=== PATIENT | female | born 1950 | race Two or more races ===

== ENCOUNTER 2021-09-27 11:11 | Emergency (ER) | payer OTHER, SELFPAY ==
--- NOTE | ~2021-09-27 | CT_ITS ---
EXAMINATION: CT ABDOMEN AND PELVIS WITHOUT CONTRAST CLINICAL INFORMATION: Back pain. COMPARISON: Lumbosacral spine done earlier today. TECHNIQUE: Multidetector volumetric imaging was performed from the superior aspect of the liver through the pubic symphysis. Sagittal and coronal reformatted images were obtained on the technologist's workstation. This CT examination was performed using dose optimization techniques as appropriate, variously including the following: *Automated exposure control *Adjustment of mA and/or kV according to patient size (this includes techniques or standardized protocols for targeted exams where dose is matched to indication/reason for exam; i.e. extremities or head) *Use of iterative reconstruction technique DLP: 654 mGy-cm FINDINGS: LUNG BASES: Sub-5 mm Kim-fissural nodule is noted (2:4) at the right lung base, too small for accurate characterization. Evaluation is also technically limited due to motion related artifacts. LIVER, GALLBLADDER, AND BILIARY TREE: The liver is normal in size, shape, and attenuation. No focal hepatic lesion or biliary ductal dilatation is present. Solitary 1.1 cm radiopaque calculus is noted within the gallbladder without evidence of any wall thickening or pericholecystic fluid. Extrahepatic biliary ducts appear decompressed. PANCREAS: Unremarkable. SPLEEN: Unremarkable. Accessory splenic tissue is noted around the anterior inferior part of the splenic bed (156:4). ADRENAL GLANDS: Unremarkable. KIDNEYS AND URETERS: The right kidney is normal in size, shape, and attenuation. No hydronephrosis, hydroureter, or calculi seen. No perinephric stranding. The left kidney shows a prominent fluid density structures within the left renal sinus, may represent mild hydronephrosis versus parapelvic cyst. Further differentiation cannot be made based on the nonenhanced study. CT urogram would be definitive for further differentiation. BLADDER: Unremarkable. GASTROINTESTINAL TRACT: The small and large bowel are unremarkable. Nonvisualized appendix without any inflammatory changes around the cecum. ABDOMINAL WALL: No significant hernia is appreciated. LYMPH NODES: Normal. VASCULAR: Nonaneurysmal aorta. Atherosclerotic disease within the distal aorta and both common iliac arteries. PELVIC VISCERA: There is no pelvic mass present. No evidence of any free fluid and/or free air. OSSEOUS STRUCTURES: Mild to moderate diffuse osteopenia. Multilevel moderate degenerative spondylosis including significant facet degenerative arthritic changes are noted at the lumbar spine. No evidence of any compression fracture. Cortical irregularities and new bone formations are noted at the symphysis pubis, most consistent with osteitis pubis. However, low-grade infection as well as hyperparathyroidism may have similar appearance and cannot be further differentiated. CT/CT abdomen pelvis wo con IMPRESSION: 1. Technically limited study due to motion related artifacts at the visualized lung bases. Sub-5 mm Kim-fissural nodule is noted at right lung base, small for accurate characterization. 2. Solitary 1.1 cm radiopaque gallstone without any CT features of acute cholecystitis or biliary obstruction. 3. Prominent fluid density structure within the left renal sinus, may represent mild hydronephrosis versus parapelvic cyst. Further differentiation cannot be made based on this nonenhanced study. CT urogram would be definitive for further differentiation. 4. Nonvisualized appendix without any inflammatory changes around the cecum. Nonaneurysmal aorta. 5. Mild to moderate diffuse osteopenia and multilevel moderate degenerative spondylosis including significant facet joint arthritic changes are noted at the lumbar spine. 6. Cortical irregularities and new bone formations are noted at the symphysis pubis, most consistent with osteitis pubis. However, low-grade infection as well as hyperparathyroidism may have similar appearance and cannot be further differentiated.
--- NOTE | ~2021-09-27 | XR_ITS ---
EXAMINATION: XR LUMBOSACRAL SPINE CLINICAL INFORMATION: Lower back pain. COMPARISON: None TECHNIQUE: Three views of the lumbosacral spine. FINDINGS: Mild diffuse osteopenia. There are 5 nonrib-bearing lumbar vertebrae present. Decreased disc height, endplate osteophyte formation, consistent with [id number] multilevel degenerative spondylosis related changes are noted with most pronounced changes seen at L3-L4. The posterior appendages are intact. The paraspinal soft tissues are unremarkable for extensive fecal residual throughout the entire visualized part of the large bowel. XR/XR lumbar spine 2-3V IMPRESSION: 1. Mild diffuse osteopenia. 2. Multilevel degenerative spondylosis with most pronounced changes seen at L3-L4.
[2021-09-27 12:31] VITALS: BP 146/63; PULSE 61; RESP 18; TEMP 36.4; O2SAT 98; BMI 37.1
--- NOTE | 2021-09-27 13:47 | MHC.CM.ED ---
Received notification from registration that patient is requesting to complete a HCP. HCP completed, signed and witnessed. Original given to patient. Copy placed in chart.
--- NOTE | 2021-09-27 13:56 | ED.BACK ---
HPI - Back Pain/Injury General Chief Complaint: Back Pain/Injury Stated Complaint: back pain Time Seen by Provider: 09/27/21 13:56 History of Present Illness HPI Narrative: Patient complains of back pain with movement since yesterday, there is no numbness weakness or tingling there is no radiation of pain there is no changes to bowel or bladder no fever, no precipitating injury Related Data Previous Rx's Medication Instructions Recorded acetaminophen 300 mg-codeine 30 mg 1 tab PO Q6H PRN #14 tab 09/27/21 tablet Allergies Allergy/AdvReac Type Severity Reaction Status Date / Time amoxicillin Allergy Hives Verified 09/27/21 12:42 Review of Systems Review of Systems: Positive for low back pain Negatives are no fever no chills no dizziness no weakness no headache no neck pain no chest pain no shortness of breath no abdominal pain no dysuria no changes to bowel or bladder no incontinence no loss of sensation no weakness Yes all other systems are reviewed and are negative PMFSH Past Medical History Source: nursing notes reviewed Medical History (Updated 09/27/21 @ 16:32 by LATOSHA Miranda) Back pain Fluid retention in legs Hypertension Osteoporosis Social History Social History Advance Directives: Yes Advance Directives on File: Yes Advance Directives Date on File: 09/27/21 Physical Exam Vital Signs: Vital Signs: Last Vital Signs Temp 97.5 F 09/27/21 12:31 Pulse 61 09/27/21 12:31 Resp 18 09/27/21 12:31 BP 146/63 H 09/27/21 12:31 Pulse Ox 98 09/27/21 12:31 Body Mass Index 37.1 General appearance no acute distress Head is normocephalic atraumatic Neck is supple Chest is clear Abdomen soft nontender The back and lower lumbar midline tenderness, skin was normal there was no CVA tenderness, pain easily reproduced with movement, no rash Extremities full range of motion x4 Neuro no focal motor or sensory deficits Course Course Course Narrative: CT scan was done to rule out compression fracture, check for mass or enlarged aorta No emergent findings on CT no fractures identified aorta was normal caliber no mass There was incidental finding of a cyst in the kidney and patient was made aware advised she may need further imaging or follow-up for this Patient was discharged with pain medicine and advised to follow with primary doctor for both further evaluation of the cyst and physical therapy for both osteoporosis and her back pain Discharge Plan Discharge Clinical Impression: Back pain Patient Disposition: Home, Self-Care Additional Instructions: CT scan showed some arthritis and a cyst in the kidney which may need further imaging so follow with your doctor Also follow with your doctor for possible physical therapy and further evaluation of her back pain Return to the ER any time any worse condition or any concerns Prescriptions: New acetaminophen-codeine 300-30 mg tablet 1 tab PO Q6H PRN (Reason: pain) Qty: 14 RF: 0 Interventions: ED Discharge Assessment Last Done: 09/27/21 16:36 Discharge Date/Time: 09/27/21 16:43
== END 2021-09-27 16:43 | disposition home or self-care (01) ==
PROVIDERS: Emergency Provider Emergency Medicine; PCP Physician Assistant
DX: M54.50 Low back pain, unspecified (principal); I10 Essential (primary) hypertension; R93.5 Abnormal findings on diagnostic imaging of other abdominal regions, including retroperitoneum; Q61.01 Congenital single renal cyst; M85.88 Other specified disorders of bone density and structure, other site
CPT/HCPCS: 72100; 74176; 99283; 99284

== ENCOUNTER 2022-09-25 16:36 | Emergency (ER) | payer OTHER, SELFPAY ==
--- NOTE | ~2022-09-25 | XR_ITS ---
EXAMINATION: XR CHEST CLINICAL INFORMATION: Cough COMPARISON: None TECHNIQUE: Frontal view of the chest was obtained. FINDINGS: Opacity in the medial right upper lobe likely corresponds to asymmetric osteophytosis of the right first costosternal junction. The lungs are otherwise clear. No focal consolidation or mass. Normal pulmonary vascularity. No pleural effusion or pneumothorax. Normal heart size. Calcified aortic arch. Tortuous aorta. Multilevel degenerative changes of the thoracic spine. XR/XR chest 1V IMPRESSION: 1.3 cm opacity in the medial right upper lobe likely corresponds to asymmetric osteophytosis of the right first costosternal junction. This could be reassessed with oblique views. No additional findings to suggest acute pulmonary disease.
[2022-09-25 18:04] VITALS: BP 186/70; PULSE 80; RESP 18; TEMP 36.8; O2SAT 98; BMI 36.5
--- NOTE | 2022-09-25 22:29 | ED.URI ---
HPI - URI/Sore Throat General Chief Complaint: Upper Respiratory Symptoms Stated Complaint: cough Time Seen by Provider: 09/25/22 22:20 Source: patient Mode of arrival: ambulatory Limitations: no limitations History of Present Illness HPI Narrative: Patient is a 71-year-old female with no known past medical history who presents to ED today for a cough that she has been experiencing for the last month. She states with a month ago she developed a cough and subjective fevers stating ?she thought she had the flu.? At that time she tested negative for COVID, however did not take a test for the flu. She stated that the fevers have subsided however she continues to experience a cough. She states the cough is productive with a white-colored? sputum. She reports taking NyQuil, Mucinex, and Tylenol without relief of symptoms. She denies any current fevers, chills, runny nose, sore throat, hemoptysis, chest pain, shortness of breath, abdominal pain, N/V/D, urinary symptoms, recent travel, and any known sick contacts. She states she is up-to-date on all her vaccines, including COVID and influenza. MD elicited complaint: cough Onset (ago): month(s) (1) Consistency: constant Severity: mild Description of mucous: other (white) Able to tolerate fluids by mouth: Yes Exacerbating factors: nothing Relieving factors: nothing Associated symptoms: fever Treatments prior to arrival: acetaminophen and cold medicine Related Data Previous Rx's Medication Instructions Recorded acetaminophen 300 mg-codeine 30 mg 1 tab PO Q6H PRN pain #14 tabs 09/27/21 tablet albuterol sulfate 90 mcg/actuation 1 inh inhalation QID PRN shortness 09/25/22 aerosol inhaler of breath or wheezing #8.5 grams doxycycline monohydrate 100 mg 100 mg PO BID 7 days #14 tabs 09/25/22 tablet prednisone 20 mg tablet 40 mg PO DAILY bronchospasm 5 days 09/25/22 #10 tabs Allergies Allergy/AdvReac Type Severity Reaction Status Date / Time amoxicillin Allergy Hives Verified 09/27/21 12:42 Review of Systems Review of Systems: Constitutional : No Fever, No Chills, No fatigue, No Malaise ENT/Mouth : No sore throat, No runny nose Eyes: No Discharge Cardiovascular : No Chest Pain, No SOB Respiratory : No Cough, No Sputum, No Wheezing, No Smoke Exposure, No Dyspnea Gastrointestinal : No Nausea, No Vomiting, No Diarrhea Genitourinary : No irregular bleeding, No Dysuria, No Urinary Frequency, No Hematuria, No Urinary Incontinence, No Urgency, No Flank Pain, Musculoskeletal : No Myalgia Skin : No rash Neuro : No Headache Yes all other systems are reviewed and are negative PMFSH Past Medical History Attestation statement: The following information was validated with the patient. Source: old records reviewed, obtained from family and nursing notes reviewed Medical History Back pain Fluid retention in legs Hypertension Osteoporosis Social History Social History Advance Directives: Yes Advance Directives on File: Yes Advance Directives Date on File: 09/27/21 Physical Exam Vital Signs: Vital Signs: Last Vital Signs Temp 98.3 F 09/25/22 18:04 Pulse 80 09/25/22 18:04 Resp 18 09/25/22 18:04 BP 186/70 H 09/25/22 18:04 Pulse Ox 98 09/25/22 18:04 O2 Del Method 09/25/22 18:04 BMI result Body Mass Index 36.5 vital signs have been reviewed Blood pressure 186/70. Heart rate normal. Respiration normal. Oxygen saturation normal. Appearance: Alert. Oriented X3. No acute distress. Head: Normal external exam. Normocephalic. Atraumatic. Eyes: PERRLA. EOMI. Conjunctiva and sclera normal. Eyelids normal. ENT: EAC normal. TM's Normal. Pharynx normal. Uvula midline. Moist mucous membranes. No trismus noted. No drooling noted. No muffled voice noted. No stridor noted. Patient tolerating secretions well. Neck: Normal inspection. Neck supple. FROM. CVS: Normal heart rate and rhythm. Heart sound normal. Pulses normal throughout. No murmurs/rales/gallops. Respiratory: No respiratory distress. Painless inspiration. Breath sounds normal. No wheezes/rales/rhonchi noted. Chest nontender. No accessory muscle usage noted or decreased air movement noted. Normal chest excursions noted. Abdomen: No visible injury noted. Back: Full range of motion noted. No rashes/lesion/induration/fluctuance or signs of infection noted. Skin: Skin warm and dry. Normal skin color. Normal skin turgor. No rashes/lesions/lacerations noted. Extremities: No lower extremity edema. Extremities exhibit normal range of motion. Neuro: Oriented X 3. No focal neuro deficits noted. Vascular: + radial pulses/+ 2 distal pedal pulses/+2 dorsalis pedis b/l. Normal cap refill. Course Course Course Narrative: Patient is a 71-year-old female with no known past medical history who presents to ED today for a cough that she has been experiencing for the last month. Patient currently afebrile, hypertensive at 186/70, all other vital signs stable. Physical exam otherwise unremarkable. CXR shows 1.3 cm opacity in the medial right upper lobe likely osteophytosis, no additional findings to suggest acute pulmonary disease. Will perform infectious workup with CBC, CMP, Mg, UA, COVID/flu/RSV swab and reassess pending labs. Patient did not endorse a history of hypertension. Will recheck blood pressure and reassess. Reevaluation(s) Reevaluation #1: - recheck blood pressure was 147/72 I recheck this myself. - labs obtained and all labs within normal limits. Patient negative for COVID/RSV/flu. - therefore at this time will DC home with antibiotics and symptomatic treatment instructions to follow-up with PCP for further evaluation treatment about opacity in her chest x-ray if it does not resolve after the antibiotics and to return if any new or worsening symptoms. Patient understands agrees with this plan. Time: 00:10 MDM - URI/Sore Throat Medical Records Attestation: I reviewed the patient's medical records. Lab Data Attestation: I reviewed the patient's lab results. Result diagrams: 09/25/22 23:01 09/25/22 23:01 Labs: Lab Results 09/25/22 09/25/22 09/25/22 Range/Units 22:28 23:01 23:01 WBC 9.0 (4.8-10.8) X10*3/uL RBC 4.82 (4.20-5.50) X10*6/uL Hgb 12.7 (12.0-16.0) g/dl Hct 41.0 (37.0-47.0) % MCV 85.1 (80.0-98.0) fL MCH 26.3 L (27.0-33.0) pg MCHC 31.0 (31.0-35.0) g/dl RDW 13.9 (11.0-16.0) % Plt Count 274 (160-400) X10*3/uL MPV 10.3 (9.4-12.3) fL Immature Gran % (Auto) 0.3 (0.0-0.4) % Neut % (Auto) 62.3 (45-73) % Lymph % (Auto) 25.7 (20-40) % Mccracken % (Auto) 7.6 (2-11) % Eos % (Auto) 3.0 (0-4) % Baso % (Auto) 1.1 (0-2) % Lymph # (Auto) 2.3 (1.2-4.9) X10*3/uL Mccracken # (Auto) 0.7 (0.1-1.2) X10*3/uL Eos # (Auto) 0.3 (0.0-0.4) X10*3/uL Baso # (Auto) 0.1 (0.0-0.2) X10*3/uL Abs Immat Gran (auto) 0.03 (0.00-0.03) X10*3/uL Absolute Neuts (auto) 5.6 (2.0-8.3) x10*3/uL Absolute Nucleated RBC 0.000 (0.0-0.012) X10*3/uL Nucleated RBC % (auto) 0.0 (0.0-0.2) /100WBC Sodium 142 (135-145) mmol/L Potassium 3.5 (3.3-5.1) mmol/L Chloride 106 (96-108) mmol/L Carbon Dioxide 24 (22-29) mmol/L Anion Gap 16 (12-20) BUN 14 (9-16) mg/dL Creatinine 0.75 (0.5-1.4) mg/dL Estim Creat Clear Calc 63.8 Estimated GFR > 60 Random Glucose 102 (60-115) mg/dL Calcium 9.6 (8.4-10.2) mg/dL Magnesium 2.0 (1.6-2.6) mg/dL Total Bilirubin 0.5 (0.0-1.0) mg/dL AST 18 (5-31) U/L ALT 15 (0-31) U/L Alkaline Phosphatase 116 (39-117) U/L Total Protein 7.9 (6.5-8.0) g/dL Albumin 4.5 (3.5-5.0) g/dL Influenza Type A (PCR) NEGATIVE (Negative) Influenza Type B (PCR) NEGATIVE (Negative) RSV RNA Qual (PCR) NEGATIVE (Negative) SARS-CoV-2 RNA (RT-PCR) NEGATIVE (Negative) Imaging Data Chest x-ray: Attestation: I personally reviewed and interpreted this imaging study as follows: Radiologist's impression: FINDINGS: Opacity in the medial right upper lobe likely corresponds to asymmetric osteophytosis of the right first costosternal junction. The lungs are otherwise clear. No focal consolidation or mass. Normal pulmonary vascularity. No pleural effusion or pneumothorax.? Normal heart size. Calcified aortic arch. Tortuous aorta. Multilevel degenerative changes of the thoracic spine. XR/XR chest 1V IMPRESSION: 1.3 cm opacity in the medial right upper lobe likely corresponds to asymmetric osteophytosis of the right first costosternal junction. This could be reassessed with oblique views. ? No additional findings to suggest acute pulmonary disease. Discharge Plan Discharge Clinical Impression: Bronchitis, Osteophytosis Patient Disposition: Home, Self-Care Instructions: Acute Bronchitis (ED) Prescriptions: New doxycycline monohydrate 100 mg tablet 100 mg PO BID 7 Days Qty: 14 0RF albuterol sulfate 90 mcg/actuation HFA aerosol inhaler 1 inh inhalation QID PRN (Reason: shortness of breath or wheezing) Qty: 8.5 0RF prednisone 20 mg tablet 40 mg PO DAILY 5 Days Qty: 10 0RF No Action acetaminophen-codeine 300-30 mg tablet 1 tab PO Q6H PRN (Reason: pain) Qty: 14 0RF Referrals: Destini Gutierrez PA-C [Primary Care Provider] - 2 days Discharge Date/Time: 09/25/22 23:56 Print Language: Hebrew
[2022-09-25 23:08] LABS: MANUAL DIFF FLAG NO
[2022-09-25 23:09] LABS: Basophils Absolute Auto 0.1 X10*3/uL (0.0-0.2); Basophils Percent Auto 1.1 % (0-2); Eosinophils Absolute Auto 0.3 X10*3/uL (0.0-0.4); Hemoglobin 12.7 g/dl (12.0-16.0); Imm Gran Abs Auto 0.03 X10*3/uL (0.00-0.03); Imm Gran Pct Auto 0.3 % (0.0-0.4); Lymphocytes Absolute Auto 2.3 X10*3/uL (1.2-4.9); Lymphocytes Percent Auto 25.7 % (20-40); Mean Corpuscular Hemoglobin 26.3 pg (27.0-33.0); Mean Corpuscular Volume 85.1 fL (80.0-98.0); Mean Platelet Volume 10.3 fL (9.4-12.3); Monocytes Absolute Auto 0.7 X10*3/uL (0.1-1.2); Monocytes Percent Auto 7.6 % (2-11); Neutrophils Absolute Auto 5.6 x10*3/uL (2.0-8.3); Neutrophils Percent Auto 62.3 % (45-73); Platelet Count 274 X10*3/uL (160-400); Red Blood Count 4.82 X10*6/uL (4.20-5.50); Red Cell Distribution Width 13.9 % (11.0-16.0)
[2022-09-25 23:11] LABS: Influenza A PCR NEGATIVE (Negative); Influenza B PCR NEGATIVE (Negative); Resp Syncy Virus RNA Qual PCR NEGATIVE (Negative); SARS COV2 PCR INHOUSE NEGATIVE (Negative)
[2022-09-25 23:24] LABS: Alanine Aminotransferase 15 U/L (0-31); Albumin Level 4.5 g/dL (3.5-5.0); Alkaline Phosphatase 116 U/L (39-117); Anion Gap 16 (12-20); Aspartate Amino Transferase 18 U/L (5-31); Bilirubin Total 0.5 mg/dL (0.0-1.0); Blood Urea Nitrogen 14 mg/dL (9-16); Calcium 9.6 mg/dL (8.4-10.2); Carbon Dioxide 24 mmol/L (22-29); Chloride 106 mmol/L (96-108); Creatinine Clr Calc Pharmacy 63.8; Estimated Glomerular Filt Rate > 60; Glucose Random 102 mg/dL (60-115); Potassium 3.5 mmol/L (3.3-5.1); Sodium 142 mmol/L (135-145); Total Protein 7.9 g/dL (6.5-8.0)
== END 2022-09-25 23:56 | disposition home or self-care (01) ==
PROVIDERS: Physician Assistant Medical; Emergency Provider Student in an Organized Health Care Education/Training Program; PCP Physician Assistant
DX: J40 Bronchitis, not specified as acute or chronic (principal); M25.70 Osteophyte, unspecified joint; Z20.822 Contact with and (suspected) exposure to COVID-19; I10 Essential (primary) hypertension
CPT/HCPCS: 0241U; 36415; 71045; 80053; 83735; 85025; 99282; 99283

== ENCOUNTER 2022-11-21 09:09 | Emergency (ER) | payer OTHER, SELFPAY ==
--- NOTE | ~2022-11-21 | XR_ITS ---
EXAMINATION: XR SHOULDER, RIGHT CLINICAL INFORMATION: Pain COMPARISON: Chest radiograph 09/25/2022 TECHNIQUE: Right shoulder is imaged in 3 views. FINDINGS: No fracture, dislocation, or destructive process. There is scattered calcification in the superior rotator cuff consistent with calcific tendinosis. The acromioclavicular alignment is normal. There are degenerative changes acromioclavicular joint. Right lung apex shows no pneumothorax or pleural reaction. No airspace consolidation or right effusion. XR/XR shoulder RT min 2V IMPRESSION: 1. Calcific tendinosis superior rotator cuff. 2. Degenerative changes acromioclavicular joint.
[2022-11-21 09:18] VITALS: BP 143/74; PULSE 63; RESP 20; TEMP 36.3; O2SAT 96; BMI 35.2
[2022-11-21 11:06] VITALS: BP 152/69; PULSE 53; RESP 16; O2SAT 93
--- NOTE | 2022-11-21 11:14 | ED.EXTPRO ---
HPI - Extremity Problem General Chief complaint: Extremity Injury, Upper Stated complaint: R shoulder pain Time Seen by Provider: 11/21/22 11:08 Source: patient Mode of arrival: ambulatory Limitations: no limitations History of Present Illness HPI Narrative: Patient is a 72-year-old female who presents emergency department for evaluation of atraumatic right shoulder pain. Reports onset of symptoms 2-3 months ago, but has been progressively worsening. She has been seen by her primary care provider for this and is awaiting physical therapy to be scheduled. Denies any weakness to the hand. Denies numbness or tingling. She does report decreased range of motion to the shoulder throughout all movements. Denies any associated neck pain, neck stiffness, abdominal pain, nausea, vomiting. Related Data Previous Rx's Medication Instructions Recorded acetaminophen 300 mg-codeine 30 mg 1 tab PO Q6H PRN pain #14 tabs 09/27/21 tablet albuterol sulfate 90 mcg/actuation 1 inh inhalation QID PRN shortness 09/25/22 aerosol inhaler of breath or wheezing #8.5 grams doxycycline monohydrate 100 mg 100 mg PO BID 7 days #14 tabs 09/25/22 tablet prednisone 20 mg tablet 40 mg PO DAILY bronchospasm 5 days 09/25/22 #10 tabs meloxicam 15 mg tablet 15 mg PO DAILY #10 tabs 11/21/22 omeprazole 20 mg capsule,delayed 20 mg PO DAILY #14 caps 11/21/22 release Allergies Allergy/AdvReac Type Severity Reaction Status Date / Time amoxicillin Allergy Hives Verified 09/27/21 12:42 Review of Systems Review of Systems: Musculoskeletal: Positive right shoulder pain as noted in HPI Yes all other systems are reviewed and are negative [facility] Past Medical History Attestation statement: The following information was validated with the patient. Source: old records reviewed Medical History Back pain Fluid retention in legs Hypertension Osteoporosis Social History Social History Advance Directives: Yes Advance Directives on File: Yes Advance Directives Date on File: 09/27/21 Physical Exam Vital Signs: Vital Signs: Last Vital Signs Temp 97.4 F 11/21/22 09:18 Pulse 53 01/03/23 11:06 Resp 16 11/21/22 11:06 BP 152/69 H 11/21/22 11:06 Pulse Ox 93 11/21/22 11:06 O2 Del Method 11/21/22 11:06 BMI result Body Mass Index 35.2 Appearance: Alert.?Oriented to person, place and time. No acute distress.?Normal affect. Eyes: Pupils equal, round and reactive to light.? ENT: Pharynx normal.?? Neck: Normal inspection.? Neck supple.??No midline cervical spine tenderness, step-offs, deformities. Full AROM of the neck CVS: Heart sounds normal. Normal heart rate and rhythm.? Pulses normal.?? Respiratory: No respiratory distress.? Lung sounds clear to auscultation bilaterally?? Abdomen: Soft and non-tender. ? Skin: Skin warm and dry.? Normal skin color.? Extremities: Right shoulder with decreased AROM, 2+ radial pulse bilaterally. Optical Effects Layout Person strengths are equal and strong bilateral Neuro: Moves all extremities spontaneously. Sensation intact bilaterally. No focal neuro deficits. Ambulates with normal steady gait. Medical Decision Making Medical Decision Making MDM Narrative: Patient is a 72 male with a past medical history of hypertension osteoporosis presenting to emergency department for persistent right shoulder pain, atraumatic in nature. Extremity is neurovascularly intact distally. Review x-ray imaging obtained from initial triage, consistent with tendinosis of the superior rotator cuff. Discussed plan of care with management rest, gentle stretching, ice/heat, prescription for meloxicam in addition to PPI sent to patient's pharmacy. Pain does not appear consistent with any referred pain such as from biliary nature, abdominal examination is benign. Advised outpatient follow-up with orthopedics for further management and treatment, in addition a primary care provider. All questions were answered. Patient stable for discharge. Differential Diagnosis Differential Diagnoses: The differential diagnosis associated with the presentation includes (Fracture, dislocation, tendinitis, rotator cuff tear, cholecystitis, cholelithiasis.) Independent Interpretation I performed an independent interpretation of an: Plain X-Ray Interpretation: Have personally interpreted x-ray of right shoulder and agree with radiologist impression. No acute fracture dislocation apparent. Radiology Impression Discussion of test interpretation with radiology: I have reviewed the radiologist's reading. Radiologist Impression: XR/XR shoulder RT min 2V IMPRESSION: 1. Calcific tendinosis superior rotator cuff. 2. Degenerative changes acromioclavicular joint. ? Prescription Management I considered prescription management with: Pain Medication (Prescription for meloxicam sent to patient's pharmacy in addition to PPI given age.) Discharge Plan Discharge Clinical Impression: Right rotator cuff tendinitis Patient Disposition: Home, Self-Care Instructions: Rotator Cuff Tendinitis (ED) Additional Instructions: As discussed, please engage in gentle stretching exercises. Prescription for meloxicam was sent to your pharmacy to take in addition to omeprazole once a day. Do not take ibuprofen in addition to this medication. Please contact the orthopedic provider today to schedule a follow-up appointment for further management. You may return to emergency department any new or worsening symptoms or concerns. Prescriptions: New meloxicam 15 mg tablet 15 mg PO DAILY Qty: 10 0RF omeprazole 20 mg capsule,delayed release(DR/EC) 20 mg PO DAILY Qty: 14 0RF No Action doxycycline monohydrate 100 mg tablet 100 mg PO BID 7 Days Qty: 14 0RF albuterol sulfate 90 mcg/actuation HFA aerosol inhaler 1 inh inhalation QID PRN (Reason: shortness of breath or wheezing) Qty: 8.5 0RF prednisone 20 mg tablet 40 mg PO DAILY 5 Days Qty: 10 0RF acetaminophen-codeine 300-30 mg tablet 1 tab PO Q6H PRN (Reason: pain) Qty: 14 0RF Referrals: aXvier Brown PA-C [Physician Nut Former] - (Calcific tendinosis superior rotator cuff; right) Destini Gutierrez PA-C [Primary Care Provider] -
== END 2022-11-21 11:48 | disposition home or self-care (01) ==
PROVIDERS: Emergency Provider Emergency Medicine; PCP Physician Assistant
DX: M67.811 Other specified disorders of synovium, right shoulder (principal); M25.511 Pain in right shoulder
CPT/HCPCS: 73030; 99283

== ENCOUNTER 2022-12-03 14:02 | Emergency (ER) | payer OTHER, SELFPAY ==
--- NOTE | ~2022-12-03 | XR_ITS ---
EXAMINATION: BILATERAL KNEE, LUMBAR SPINE AND CHEST. CLINICAL INFORMATION: Back pain, knee pain, fall. COMPARISON: None TECHNIQUE: Lumbar spine 3 views. Chest 2 views. 4 views each knee. FINDINGS: Lumbar spine: There is normal lumbar lordosis. The vertebral heights and alignment is normal. There is loss of L3-L4, L4-L5 and L5-S1 disc heights. There is no visible acute fracture, dislocation or subluxation seen. Is no lytic or sclerotic process seen. SI joints are symmetrical and normal. CHEST: The lungs are well-expanded and clear. The heart size and pulmonary vascularity is normal. There is moderate spondylosis of dorsal spine. No aggressive lytic or sclerotic process seen. Right knee: There is mild loss of tricompartment joint space without bony erosive changes. There is mild periarticular spurring medial and patellar femoral compartment. There is mild chondrocalcinosis of the menisci. Minimal suprapatellar joint effusion seen. No loose bodies. Left knee: Mild loss of tricompartment joint space without bony erosive changes. There is moderate periarticular spurring in the patellofemoral compartment. There is chondrocalcinosis of the menisci minimal suprapatellar joint effusion is visualized. No lytic or sclerotic process seen. XR/XR chest 2V IMPRESSION: 1. Degenerative disc changes L3-L4, L4-L5 and L5-S1 disc levels. No visible acute fracture, dislocation or subluxation seen. 2. Unremarkable chest exam. 3. Degenerative arthritic changes bilateral knees with periarticular spurring in the medial and patellofemoral compartments. No visible acute fracture or dislocation seen. There is chondrocalcinosis of the menisci and minimal suprapatellar joint effusion.
--- NOTE | ~2022-12-03 | XR_ITS ---
EXAMINATION: BILATERAL KNEE, LUMBAR SPINE AND CHEST. CLINICAL INFORMATION: Back pain, knee pain, fall. COMPARISON: None TECHNIQUE: Lumbar spine 3 views. Chest 2 views. 4 views each knee. FINDINGS: Lumbar spine: There is normal lumbar lordosis. The vertebral heights and alignment is normal. There is loss of L3-L4, L4-L5 and L5-S1 disc heights. There is no visible acute fracture, dislocation or subluxation seen. Is no lytic or sclerotic process seen. SI joints are symmetrical and normal. CHEST: The lungs are well-expanded and clear. The heart size and pulmonary vascularity is normal. There is moderate spondylosis of dorsal spine. No aggressive lytic or sclerotic process seen. Right knee: There is mild loss of tricompartment joint space without bony erosive changes. There is mild periarticular spurring medial and patellar femoral compartment. There is mild chondrocalcinosis of the menisci. Minimal suprapatellar joint effusion seen. No loose bodies. Left knee: Mild loss of tricompartment joint space without bony erosive changes. There is moderate periarticular spurring in the patellofemoral compartment. There is chondrocalcinosis of the menisci minimal suprapatellar joint effusion is visualized. No lytic or sclerotic process seen. XR/XR knee LT 4V IMPRESSION: 1. Degenerative disc changes L3-L4, L4-L5 and L5-S1 disc levels. No visible acute fracture, dislocation or subluxation seen. 2. Unremarkable chest exam. 3. Degenerative arthritic changes bilateral knees with periarticular spurring in the medial and patellofemoral compartments. No visible acute fracture or dislocation seen. There is chondrocalcinosis of the menisci and minimal suprapatellar joint effusion.
--- NOTE | ~2022-12-03 | XR_ITS ---
EXAMINATION: BILATERAL KNEE, LUMBAR SPINE AND CHEST. CLINICAL INFORMATION: Back pain, knee pain, fall. COMPARISON: None TECHNIQUE: Lumbar spine 3 views. Chest 2 views. 4 views each knee. FINDINGS: Lumbar spine: There is normal lumbar lordosis. The vertebral heights and alignment is normal. There is loss of L3-L4, L4-L5 and L5-S1 disc heights. There is no visible acute fracture, dislocation or subluxation seen. Is no lytic or sclerotic process seen. SI joints are symmetrical and normal. CHEST: The lungs are well-expanded and clear. The heart size and pulmonary vascularity is normal. There is moderate spondylosis of dorsal spine. No aggressive lytic or sclerotic process seen. Right knee: There is mild loss of tricompartment joint space without bony erosive changes. There is mild periarticular spurring medial and patellar femoral compartment. There is mild chondrocalcinosis of the menisci. Minimal suprapatellar joint effusion seen. No loose bodies. Left knee: Mild loss of tricompartment joint space without bony erosive changes. There is moderate periarticular spurring in the patellofemoral compartment. There is chondrocalcinosis of the menisci minimal suprapatellar joint effusion is visualized. No lytic or sclerotic process seen. XR/XR lumbar spine 2-3V IMPRESSION: 1. Degenerative disc changes L3-L4, L4-L5 and L5-S1 disc levels. No visible acute fracture, dislocation or subluxation seen. 2. Unremarkable chest exam. 3. Degenerative arthritic changes bilateral knees with periarticular spurring in the medial and patellofemoral compartments. No visible acute fracture or dislocation seen. There is chondrocalcinosis of the menisci and minimal suprapatellar joint effusion.
--- NOTE | ~2022-12-03 | XR_ITS ---
EXAMINATION: BILATERAL KNEE, LUMBAR SPINE AND CHEST. CLINICAL INFORMATION: Back pain, knee pain, fall. COMPARISON: None TECHNIQUE: Lumbar spine 3 views. Chest 2 views. 4 views each knee. FINDINGS: Lumbar spine: There is normal lumbar lordosis. The vertebral heights and alignment is normal. There is loss of L3-L4, L4-L5 and L5-S1 disc heights. There is no visible acute fracture, dislocation or subluxation seen. Is no lytic or sclerotic process seen. SI joints are symmetrical and normal. CHEST: The lungs are well-expanded and clear. The heart size and pulmonary vascularity is normal. There is moderate spondylosis of dorsal spine. No aggressive lytic or sclerotic process seen. Right knee: There is mild loss of tricompartment joint space without bony erosive changes. There is mild periarticular spurring medial and patellar femoral compartment. There is mild chondrocalcinosis of the menisci. Minimal suprapatellar joint effusion seen. No loose bodies. Left knee: Mild loss of tricompartment joint space without bony erosive changes. There is moderate periarticular spurring in the patellofemoral compartment. There is chondrocalcinosis of the menisci minimal suprapatellar joint effusion is visualized. No lytic or sclerotic process seen. XR/XR knee RT 4V IMPRESSION: 1. Degenerative disc changes L3-L4, L4-L5 and L5-S1 disc levels. No visible acute fracture, dislocation or subluxation seen. 2. Unremarkable chest exam. 3. Degenerative arthritic changes bilateral knees with periarticular spurring in the medial and patellofemoral compartments. No visible acute fracture or dislocation seen. There is chondrocalcinosis of the menisci and minimal suprapatellar joint effusion.
[2022-12-03 14:08] VITALS: BP 184/73; PULSE 71; RESP 18; TEMP 36.7; O2SAT 99; BMI 29.6
--- NOTE | 2022-12-03 14:11 | ED.GENADULT ---
HPI - General Adult General Chief complaint: Fall <LATOSHA Pan - Last Filed: 12/03/22 18:33> Stated complaint: Fall T-1 <LATOSHA Pan - Last Filed: 12/03/22 18:33> Time Seen by Provider: 12/03/22 15:18 <LATOSHA Pan - Last Filed: 12/03/22 18:33> History of Present Illness HPI narrative: Patient complains of pain in ribs shoulders knees and lower back after trip and fall when she tripped on her walker on the sidewalk yesterday, no loss of consciousness no head pain no neck pain no headache no numbness weakness no tingling no changes to bowel or bladder no chest pain or shortness of breath no fainting or feeling faint no dizziness no difficulty walking, although her knees to hurt she is able to ambulate without difficulty with her walker <LATOSHA Miranda - Last Filed: 12/09/22 10:38> Related Data Home medications: Previous Rx's Medication Instructions Recorded acetaminophen 300 mg-codeine 30 mg 1 tab PO Q6H PRN pain #14 tabs 09/27/21 tablet albuterol sulfate 90 mcg/actuation 1 inh inhalation QID PRN shortness 09/25/22 aerosol inhaler of breath or wheezing #8.5 grams doxycycline monohydrate 100 mg 100 mg PO BID 7 days #14 tabs 09/25/22 tablet prednisone 20 mg tablet 40 mg PO DAILY bronchospasm 5 days 09/25/22 #10 tabs meloxicam 15 mg tablet 15 mg PO DAILY #10 tabs 11/21/22 omeprazole 20 mg capsule,delayed 20 mg PO DAILY #14 caps 11/21/22 release cyclobenzaprine 5 mg tablet 5 mg PO TID PRN muscle spasm #10 12/03/22 tabs meloxicam 15 mg tablet 15 mg PO DAILY Pain #7 tabs 12/03/22 <LATOSHA Pan - Last Filed: 12/03/22 18:33> Allergies/adverse reactions: Allergies Allergy/AdvReac Type Severity Reaction Status Date / Time amoxicillin Allergy Hives Verified 12/03/22 14:07 <LATOSHA Pan Last Filed: 12/03/22 18:33> PMFSH Past Medical History Source: nursing notes reviewed <LATOSHA Miranda - Last Filed: 12/09/22 10:38> Medical History: Medical History Back pain Fluid retention in legs Hypertension Osteoporosis <LATOSHA Pan - Last Filed: 12/03/22 18:33> Social History Social History: Social History Advance Directives: Yes Advance Directives on File: Yes Advance Directives Date on File: 09/27/21 <LATOSHA Pan - Last Filed: 12/03/22 18:33> Physical Exam ED Vital Signs: Vital Signs - 24 hr 12/03/22 14:08 Temperature 98.0 F Pulse Rate 71 Respiratory Rate 18 Blood Pressure 184/73 H Pulse Oximetry 99 Oxygen Delivery Method Room Air BMI result Body Mass Index 29.6 <LATOSHA Pan - Last Filed: 12/03/22 18:33> Vital Signs - 24 hr 12/03/22 14:08 Temperature 98.0 F Pulse Rate 71 Respiratory Rate 18 Blood Pressure 184/73 H Pulse Oximetry 99 Oxygen Delivery Method Room Air BMI result Body Mass Index 29.6 <LATOSHA Miranda - Last Filed: 12/09/22 10:38> General appearance is no acute distress Head is normocephalic atraumatic Neck is supple and nontender The chest wall is nontender There is no significant rib tenderness there is no pleuritic pain with deep breath The chest is clear to auscultation bilateral with full symmetric equal breath sounds Abdomen is soft nontender The back had diffuse soft tissue tenderness both upper and lower, there are no bruises no lacerations no wounds There was no focal spinal tenderness, she did have full range of motion but it was uncomfortable Extremities both knees had tenderness and some stiffness but they had good range of motion, no significant swelling no effusion no laceration, she was able to ambulate easily with her walker Shoulders full range of motion but there was some mild tenderness on both shoulders but no bruising or deformities Other joints normal Skin no lacerations Neuro no focal motor or sensory deficits, interaction comprehension and expression were normal <LATOSHA Miranda - Last Filed: 12/09/22 10:38> Course Course Course Narrative: RME: 72 yold male presents to the ED for back pain, right upper rib pain, and bilateral knee pain after fallking unto her walker. patient deneis hitting head, loss of concsisouness, or body hitting the floor. xrays order <ALTOSHA Pan - Last Filed: 12/03/22 18:33> RME: 72 yold male presents to the ED for back pain, right upper rib pain, and bilateral knee pain after fallking unto her walker. patient deneis hitting head, loss of concsisouness, or body hitting the floor. xrays order X-rays of lumbar spine bilateral knees and chest x-ray did not reveal any acute fractures or any acute findings Patient remained comfortable and stable throughout visit, ambulated easily with her walker had full range of motion in all joints and was discharged home without evidence of any dangerous injury <LATOSHA Miranda - Last Filed: 12/09/22 10:38> Discharge Plan Discharge Clinical Impression: Left shoulder strain, Arthralgia, Back strain <LATOSHA Pan - Last Filed: 12/03/22 18:33> Patient Disposition: Home, Self-Care <LATOSHA Pan Last Filed: 12/03/22 18:33> Additional Instructions: There is no sign of any dangerous or serious injury, no broken bone seen on x-ray Physical exam did not have any concerning findings Follow with orthopedist for further evaluation of knees and both shoulders Return to ER any time any worse condition or any concerns <LATOSHA Pan Last Filed: 12/03/22 18:33> Prescriptions: New meloxicam 15 mg tablet 15 mg PO DAILY Qty: 7 0RF cyclobenzaprine 5 mg tablet 5 mg PO TID PRN (Reason: muscle spasm) Qty: 10 0RF Rx Instructions: This medication can cause drowsiness, use with caution No Action doxycycline monohydrate 100 mg tablet 100 mg PO BID 7 Days Qty: 14 0RF albuterol sulfate 90 mcg/actuation HFA aerosol inhaler 1 inh inhalation QID PRN (Reason: shortness of breath or wheezing) Qty: 8.5 0RF prednisone 20 mg tablet 40 mg PO DAILY 5 Days Qty: 10 0RF meloxicam 15 mg tablet 15 mg PO DAILY Qty: 10 0RF omeprazole 20 mg capsule,delayed release(DR/EC) 20 mg PO DAILY Qty: 14 0RF acetaminophen-codeine 300-30 mg tablet 1 tab PO Q6H PRN (Reason: pain) Qty: 14 0RF <LATOSHA Pan - Last Filed: 12/03/22 18:33> Referrals: Scott Crane MD [Physician] - (Knee and shoulder arthralgia) <LATOSHA Pan - Last Filed: 12/03/22 18:33> Interventions: ED Discharge Assessment Last Done: 12/03/22 16:55 <LATOSHA Pan - Last Filed: 12/03/22 18:33> Discharge Date/Time: 12/03/22 16:56 <LATOSHA Pan - Last Filed: 12/03/22 18:33>
== END 2022-12-03 16:56 | disposition home or self-care (01) ==
PROVIDERS: Emergency Provider Emergency Medicine; PCP Physician Assistant
DX: S46.912A Strain of unspecified muscle, fascia and tendon at shoulder and upper arm level, left arm, initial encounter (principal); S39.012A Strain of muscle, fascia and tendon of lower back, initial encounter; M25.512 Pain in left shoulder; M25.562 Pain in left knee; M25.561 Pain in right knee; R07.89 Other chest pain; W01.0XXA Fall on same level from slipping, tripping and stumbling without subsequent striking against object, initial encounter; Y93.9 Activity, unspecified; Y92.9 Unspecified place or not applicable; Y99.9 Unspecified external cause status; Z79.899 Other long term (current) drug therapy
CPT/HCPCS: 71046; 72100; 73564; 99282; 99284

== ENCOUNTER 2023-05-16 16:05 | Emergency (ER) | payer OTHER, SELFPAY ==
--- NOTE | ~2023-05-16 | XR_ITS ---
EXAMINATION: XR SHOULDER, RIGHT CLINICAL INFORMATION: Pain COMPARISON: X-ray 11/21/2022 TECHNIQUE: 3 views of the right shoulder. FINDINGS: Osteopenia. No acute fracture or dislocation. Mild-moderate acromioclavicular arthritis. Previously seen calcification superior to the humeral head are improved as compared to previous. No suspicious finding the visualized right lung. XR/XR shoulder RT min 2V IMPRESSION: No evidence of acute fracture or dislocation. Mild-moderate acromioclavicular arthritis. Soft tissue calcifications superior to the humeral head, increased from previous..
--- NOTE | ~2023-05-16 | XR_ITS ---
EXAMINATION: X-ray left knee X-ray right knee CLINICAL INFORMATION: Pain COMPARISON: X-ray 12/03/2022 TECHNIQUE: Right knee 4 views. Left knee 4 views. FINDINGS: Left knee: Marginal spurring in the medial and lateral compartment. Marginal spurring and joint space loss in the patellofemoral compartment. No acute fracture or dislocation. Chondrocalcinosis present. There may be loose body present. Small effusion. Right knee: Marginal spurring in the medial and lateral compartment, with chondrocalcinosis. Patellofemoral compartment joint space narrowing and marginal osteophytes. No acute fracture or dislocation. No significant effusion. XR/XR knee RT 4V IMPRESSION: Left knee: Tricompartment osteoarthritis. Prominent patellofemoral compartment arthritis. Chondrocalcinosis plus/minus loose bodies present. No acute fracture. Right knee: Tricompartment osteoarthritis, more prominent changes of patellofemoral compartment. Chondrocalcinosis. No acute fracture.
--- NOTE | ~2023-05-16 | XR_ITS ---
EXAMINATION: X-ray left knee X-ray right knee CLINICAL INFORMATION: Pain COMPARISON: X-ray 12/03/2022 TECHNIQUE: Right knee 4 views. Left knee 4 views. FINDINGS: Left knee: Marginal spurring in the medial and lateral compartment. Marginal spurring and joint space loss in the patellofemoral compartment. No acute fracture or dislocation. Chondrocalcinosis present. There may be loose body present. Small effusion. Right knee: Marginal spurring in the medial and lateral compartment, with chondrocalcinosis. Patellofemoral compartment joint space narrowing and marginal osteophytes. No acute fracture or dislocation. No significant effusion. XR/XR knee LT 4V IMPRESSION: Left knee: Tricompartment osteoarthritis. Prominent patellofemoral compartment arthritis. Chondrocalcinosis plus/minus loose bodies present. No acute fracture. Right knee: Tricompartment osteoarthritis, more prominent changes of patellofemoral compartment. Chondrocalcinosis. No acute fracture.
[2023-05-16 16:19] VITALS: BP 156/79; PULSE 74; RESP 18; TEMP 35.9; O2SAT 98; BMI 36.4
--- NOTE | 2023-05-16 16:20 | ED.GENADULT ---
HPI - General Adult General Chief complaint: General Medical Stated complaint: Right shoulder/knee pain Time Seen by Provider: 05/16/23 17:02 Source: patient Mode of arrival: ambulatory Limitations: no limitations History of Present Illness HPI narrative: 72-year-old female history of hypertension complaining of acute on chronic right shoulder pain for the past few days worsening, she reports pain has been worse at night, she tells me the pain is inhibiting her from sleeping due to severe pain. Patient reports pain is worse with movement better rest, denies trauma to the area, denies numbness, tingling, chest pain and shortness of breath. Patient reports that shoulder pain has been present for the past few months worsening over the past few days. Also reporting worsening bilateral knee pain, knee pain is been present for the past few months however worsening over the past few days. Again she denies any inciting injury. Patient denies lower extremity swelling, fevers, chills, chest pain, shortness of breath, nausea, vomiting, numbness, tingling. Taking meloxicam for pain with little to no relief. Ambulatory into the room with walker with no difficulty. Remote history of fall in september 2022 which patient states is doris contributing to all this. Related Data Previous Rx's Medication Instructions Recorded acetaminophen 300 mg-codeine 30 mg 1 tab PO Q6H PRN pain #14 tabs 09/27/21 tablet albuterol sulfate 90 mcg/actuation 1 inh inhalation QID PRN shortness 09/25/22 aerosol inhaler of breath or wheezing #8.5 grams doxycycline monohydrate 100 mg 100 mg PO BID 7 days #14 tabs 09/25/22 tablet prednisone 20 mg tablet 40 mg PO DAILY bronchospasm 5 days 09/25/22 #10 tabs meloxicam 15 mg tablet 15 mg PO DAILY #10 tabs 11/21/22 omeprazole 20 mg capsule,delayed 20 mg PO DAILY #14 caps 11/21/22 release cyclobenzaprine 5 mg tablet 5 mg PO TID PRN muscle spasm #10 12/03/22 tabs meloxicam 15 mg tablet 15 mg PO DAILY Pain #7 tabs 12/03/22 ketorolac 10 mg tablet 10 mg PO TID PRN pain 5 days #15 05/16/23 tabs prednisone 20 mg tablet 40 mg PO DAILY 5 days #10 tabs 05/16/23 Allergies Allergy/AdvReac Type Severity Reaction Status Date / Time amoxicillin Allergy Hives Verified 05/16/23 16:25 Review of Systems Review of Systems: Constitutional : No Weight loss, No Fever, No Chills, No Fatigue, No Malaise ENT/Mouth : No sore throat, No Rhinorrhea Eyes: No Eye Pain, No Swelling, No Redness Cardiovascular : No Chest Pain, No SOB, No Dyspnea on Exertion, No Orthopnea, No Edema, No Palpitations Respiratory : No Cough, No Sputum, No Wheezing Gastrointestinal : No Nausea, No Vomiting, No Diarrhea, No Constipation, No abdominal Pain, No Hematochezia, No Melena Genitourinary : No Dysuria, No Urinary Frequency, No Hematuria, Musculoskeletal : + joint pain, No Myalgias, No Joint Swelling Skin : No Skin Lesions, No rash Neuro : No Weakness, No Numbness, No Dizziness, No Headache Psych : No Anxiety/Panic, No Depression All other systems reviewed and are negative Yes all other systems are reviewed and are negative FORMERLY [facility] Past Medical History Attestation statement: The following information was validated with the patient. Source: old records reviewed and nursing notes reviewed Medical History Back pain Fluid retention in legs Hypertension Osteoporosis Social History Social History Advance Directives: Yes Advance Directives on File: Yes Advance Directives Date on File: 09/27/21 Physical Exam ED Vital Signs: Vital Signs - 24 hr 05/16/23 16:19 Temperature 96.7 F L Pulse Rate 74 Respiratory Rate 18 Blood Pressure 156/79 H Pulse Oximetry 98 Oxygen Delivery Method Room Air BMI result Body Mass Index 36.4 vss Appearance: Alert.? Oriented X3.? No acute distress.? Head: Normocephalic, atraumatic, no step-offs or deformities Eyes: Pupils equal, round and reactive to light.? Neck: Normal inspection.? Neck supple.? CVS: Normal heart rate and rhythm.? Pulses normal.? Respiratory: No respiratory distress.? Breath sounds normal.? Abdomen: Soft and nontender.? Skin: Skin warm and dry.? Normal skin color.? Normal skin turgor.? Extremities: 2+ nonpitting lower extremity edema ( patients baseline).? No calf ttp. 5/5 strength to bilateral upper and lower extremities full range of motion to bilateral knees, and L shoulder however discomfort with range of motion to right shoulder particularly w/ overhead movements.?right shoulder reproducible tenderness, mild bilateral knee tenderness to palpation 2+ radial pulses equal bilateral. No wrist drop or foot drop. Capillary refill less than 2 seconds. Normal hand favor maker b/l. Brisk patellar, achillies reflexes to b/l lower extremities Neuro: Oriented X 3.? No motor deficit.? No sensory deficit. CN 2-12 intact Course Course Course Narrative: RME: 72-year-old female with past medical history HTN c/o acute on chronic right shoulder pain, worse at night, & insomnia 2/2 pain. Also reports bilateral knee pain & weakness and LE edema x1 year. Takes Meloxicam for shoulder pain. + right shoulder reproducible tenderness, mild bilateral knee tenderness to palpation. Ambulating with walker EKG, labs, x-rays ordered Full HPI, ROS and PE to be performed by primary ED provider. Reevaluation(s) Reevaluation #1: Patient requesting Meloxicam, instead of meloxicam will give Toradol, patient is not currently taking Meloxicam at home she used to take this and states it use to help for pain. Patient's labs unremarkable, EKG nonischemic unlikely ACS. Normal BNP. X-ray of shoulder with no evidence of acute fracture dislocation. [id number] AC arthritis, soft tissue calcification superior to the humeral head increased from previous concerning for possible calcific tendinitis and consistent with patient's exam. X-ray of left knee with try compartment osteoarthritis. Prominent patellofemoral compartment arthritis. Chondrocalcinosis +or minus loose bodies present. Similar findings on right knee. Will give her Toradol for pain as she has normal renal function and his tolerated Meloxicam the past. Will discharge home with orthopedic follow-up. Educated patient on diagnosis and treatment plan, answered all question, patient verbalizes understanding. At this time patient will be discharged home, advised to return with new or worsening symptoms. Educated on worrisome signs and symptoms and when to return. At this time I feel comfortable discharge home. Time: 18:08 Medical Decision Making Medical Decision Making [facility] Narrative: 72-year-old female presents with bilateral lower knee pain, atraumatic for the past few months and right shoulder pain, atraumatic in nature past few months worsening. PE w/ 2+ nonpitting lower extremity edema ( patients baseline) .? No calf ttp. 5/5 strength to bilateral upper and lower extremities full range of motion to bilateral knees, and L shoulder however discomfort with range of motion to right shoulder particularly w/ overhead movements.?right shoulder reproducible tenderness, mild bilateral knee tenderness to palpation 2+ radial pulses equal bilateral. No wrist drop or foot drop. Capillary refill less than 2 seconds. Normal hand favor maker b/l. Brisk patellar, achillies reflexes to b/l lower extremities Likely tendinitis of shoulder and or osteoarthritis of shoulder of knees and shoulder. Unlikely acute ligament or tendon tear, NV compromise, threat to limb, atypical presentation of ACS, DVT, arterial occlusion, guillian bare ( patient reports b/l lower extremity pain not weakness.). Unlikely fx or dislocation Plan- imaging, labs ordered from triage. Differential Diagnosis Differential Diagnoses: The differential diagnosis associated with the presentation includes Likely tendinitis of shoulder and or osteoarthritis of shoulder of knees and shoulder. Unlikely acute ligament or tendon tear, NV compromise, threat to limb, atypical presentation of ACS, DVT, arterial occlusion, guillian bare ( patient reports b/l lower extremity pain not weakness.). Unlikely fx or dislocation Admission/Observation Consideration of admission/observation: Escalation of care including admission/observation considered Unlikely Lab Data MDM Lab Attestation statement: I reviewed the patient's lab results. 05/16/23 17:17 05/16/23 17:17 Labs: Lab Results 05/16/23 05/16/23 05/16/23 Range/Units 17:17 17:17 17:17 WBC 5.8 (4.8-10.8) X10*3/uL RBC 4.64 (4.20-5.50) X10*6/uL Hgb 12.2 (12.0-16.0) g/dl Hct 39.1 (37.0-47.0) % MCV 84.3 (80.0-98.0) fL MCH 26.3 L (27.0-33.0) pg MCHC 31.2 (31.0-35.0) g/dl RDW 14.0 (11.0-16.0) % Plt Count 243 (160-400) X10*3/uL MPV 10.0 (9.4-12.3) fL Immature Gran % (Auto) 0.3 (0.0-0.4) % Neut % (Auto) 73.6 H (45-73) % Lymph % (Auto) 13.7 L (20-40) % [place] % (Auto) 8.1 (2-11) % Eos % (Auto) 2.9 (0-4) % Baso % (Auto) 1.4 (0-2) % Lymph # (Auto) 0.8 L (1.2-4.9) X10*3/uL [place] # (Auto) 0.5 (0.1-1.2) X10*3/uL Eos # (Auto) 0.2 (0.0-0.4) X10*3/uL Baso # (Auto) 0.1 (0.0-0.2) X10*3/uL Abs Immat Gran (auto) 0.02 (0.00-0.03) X10*3/uL Absolute Neuts (auto) 4.2 (2.0-8.3) x10*3/uL Absolute Nucleated RBC 0.000 (0.0-0.012) X10*3/uL Nucleated RBC % (auto) 0.0 (0.0-0.2) /100WBC Sodium 138 (135-145) mmol/L Potassium 3.9 (3.3-5.1) mmol/L Chloride 105 (96-108) mmol/L Carbon Dioxide 27 (22-29) mmol/L Anion Gap 10 L (12-20) BUN 15 (9-16) mg/dL Creatinine 0.84 (0.5-1.4) mg/dL Estim Creat Clear Calc 55.9 Estimated GFR > 60 Random Glucose 91 (60-115) mg/dL Calcium 9.7 (8.4-10.2) mg/dL Magnesium 2.0 (1.6-2.6) mg/dL Total Bilirubin 0.5 (0.0-1.0) mg/dL Direct Bilirubin 0.2 (0.0-0.5) mg/dL AST 17 (5-31) U/L ALT 15 (0-31) U/L Alkaline Phosphatase 117 (39-117) U/L B-Natriuretic Peptide 41 (<100) pg/mL Total Protein 7.5 (6.5-8.0) g/dL Albumin 4.1 (3.5-5.0) g/dL Independent Interpretation I performed an independent interpretation of an: EKG ( ventricular rate of 54, DC normal, QRS normal, QT /QTC normal. EKG with sinus bradycardia no ST elevations or inversions concerning for acute ischemia.) and Plain X-Ray (XR/XR knee LT 4V IMPRESSION: Left knee: Tricompartment osteoarthritis. Prominent patellofemoral compartment arthritis. Chondrocalcinosis plus/minus loose bodies present. No acute fracture. Right knee: Tricompartment osteoarthritis, more prominent changes of patellofemoral compartment. Chondrocalci) Interpretation: ?XR/XR shoulder RT min 2V IMPRESSION: No evidence of acute fracture or dislocation. Mild-moderate acromioclavicular arthritis. Soft tissue calcifications superior to the humeral head, increased from previous.. Radiology Impression Discussion of test interpretation with radiology: I have reviewed the radiologist's reading. Prescription Management I considered prescription management with: Pain Medication Core Measures AMI core measures followed: Yes Measure exclusions: not indicated Critical Care Time Critical Care Time Critical Care Time: No Discharge Plan Discharge Clinical Impression: Right shoulder tendonitis, Knee osteoarthritis Patient Disposition: Home, Self-Care Instructions: Rotator Cuff Tendinitis (ED), Osteoarthritis (ED), Shoulder Arthroscopy (DC) Additional Instructions: Take your medications as prescribed. If you were prescribed antibiotics today, it is important that you take your medication to their entirety, do not skip any doses, do not finish them early. Follow-up with your primary care provider this week. Follow up with the orthopedic team Return to the emergency department with new or worsening symptoms. Such as fevers, chills, chest pain, shortness of breath, nausea, vomiting, dizziness, headache, vision changes, lethargy In case of emergency call 911 Do not take Toradol with meloxicam. Toradol has been sent to your pharmacy, you tolerated this well in the department. Please take this as prescribed do not take this with ibuprofen, or other NSAIDs, do not mix this with alcohol. Side effects of this medication including increased risk for bleeding and possible kidney injury. XR/XR shoulder RT min 2V IMPRESSION: No evidence of acute fracture or dislocation. Mild-moderate acromioclavicular arthritis. Soft tissue calcifications superior to the humeral head, increased from previous.. XR/XR knee RT 4V IMPRESSION: Left knee: Tricompartment osteoarthritis. Prominent patellofemoral compartment arthritis. Chondrocalcinosis plus/minus loose bodies present. No acute fracture. ? Right knee: Tricompartment osteoarthritis, more prominent changes of patellofemoral compartment. Chondrocalcinosis. No acute fracture. ? Prescriptions: New prednisone 20 mg tablet 40 mg PO DAILY 5 Days Qty: 10 0RF ketorolac 10 mg tablet 10 mg PO TID PRN (Reason: pain) 5 Days Qty: 15 0RF No Action doxycycline monohydrate 100 mg tablet 100 mg PO BID 7 Days Qty: 14 0RF albuterol sulfate 90 mcg/actuation HFA aerosol inhaler 1 inh inhalation QID PRN (Reason: shortness of breath or wheezing) Qty: 8.5 0RF prednisone 20 mg tablet 40 mg PO DAILY 5 Days Qty: 10 0RF meloxicam 15 mg tablet 15 mg PO DAILY Qty: 10 0RF omeprazole 20 mg capsule,delayed release(DR/EC) 20 mg PO DAILY Qty: 14 0RF acetaminophen-codeine 300-30 mg tablet 1 tab PO Q6H PRN (Reason: pain) Qty: 14 0RF meloxicam 15 mg tablet 15 mg PO DAILY Qty: 7 0RF cyclobenzaprine 5 mg tablet 5 mg PO TID PRN (Reason: muscle spasm) Qty: 10 0RF Rx Instructions: This medication can cause drowsiness, use with caution Ref[place]: [facility] [place]Provider Group] - 1 week Physician,Unknown J [Primary Care Provider] - 2 days Stand Alone Forms: Work/School Release
--- NOTE | 2023-05-16 16:21 | ECG_ITS ---
Test Reason : RT SHOULDER PAIN Blood Pressure : / mmHG Vent. Rate : 056 BPM Atrial Rate : 056 BPM P-R Int : 140 ms QRS Dur : 084 ms QT Int : 416 ms P-R-T Axes : 051 038 051 degrees QTc Int : 401 ms Sinus bradycardia Otherwise normal ECG No previous ECGs available Referred By: Rochelle Hernandez Electronically Signed By:Sony Lyles
[2023-05-16 17:23] LABS: MANUAL DIFF FLAG NO
[2023-05-16 17:26] LABS: Basophils Absolute Auto 0.1 X10*3/uL (0.0-0.2); Basophils Percent Auto 1.4 % (0-2); Eosinophils Absolute Auto 0.2 X10*3/uL (0.0-0.4); Eosinophils Percent Auto 2.9 % (0-4); Hematocrit 39.1 % (37.0-47.0); Hemoglobin 12.2 g/dl (12.0-16.0); Imm Gran Abs Auto 0.02 X10*3/uL (0.00-0.03); Imm Gran Pct Auto 0.3 % (0.0-0.4); Lymphocytes Absolute Auto 0.8 X10*3/uL (1.2-4.9); Lymphocytes Percent Auto 13.7 % (20-40); Mean Corpuscular HGB Conc 31.2 g/dl (31.0-35.0); Mean Corpuscular Hemoglobin 26.3 pg (27.0-33.0); Mean Corpuscular Volume 84.3 fL (80.0-98.0); Monocytes Absolute Auto 0.5 X10*3/uL (0.1-1.2); Monocytes Percent Auto 8.1 % (2-11); Neutrophils Absolute Auto 4.2 x10*3/uL (2.0-8.3); Neutrophils Percent Auto 73.6 % (45-73); Platelet Count 243 X10*3/uL (160-400); Red Blood Count 4.64 X10*6/uL (4.20-5.50); White Blood Count 5.8 X10*3/uL (4.8-10.8)
[2023-05-16 18:00] VITALS: BP 158/80; PULSE 61; RESP 18; TEMP 37.1
[2023-05-16 18:00] LABS: Alanine Aminotransferase 15 U/L (0-31); Albumin Level 4.1 g/dL (3.5-5.0); Alkaline Phosphatase 117 U/L (39-117); Anion Gap 10 (12-20); Aspartate Amino Transferase 17 U/L (5-31); Bilirubin Direct 0.2 mg/dL (0.0-0.5); Bilirubin Total 0.5 mg/dL (0.0-1.0); Blood Urea Nitrogen 15 mg/dL (9-16); Calcium 9.7 mg/dL (8.4-10.2); Carbon Dioxide 27 mmol/L (22-29); Chloride 105 mmol/L (96-108); Creatinine Clr Calc Pharmacy 55.9; Estimated Glomerular Filt Rate > 60; Glucose Random 91 mg/dL (60-115); Potassium 3.9 mmol/L (3.3-5.1); Sodium 138 mmol/L (135-145); Total Protein 7.5 g/dL (6.5-8.0)
[2023-05-16 18:03] LABS: B Type Natriuretic Peptide 41 pg/mL (<100)
[2023-05-16 18:30] LABS: Troponin-I High Sensitivity < 2.7 ng/L (<3.5-17.0)
[2023-05-16] MEDS: Lidocaine 4 % Patch ADH..PATCH 1 PATCH TRANSDERMA (18:45)
[2023-05-16] MEDS: Ketorolac Tromethamine 15 MG/ML VIAL 30 MG IM (18:45)
== END 2023-05-16 18:57 | disposition home or self-care (01) ==
PROVIDERS: Physician Assistant; Emergency Provider Emergency Medicine
DX: M25.511 Pain in right shoulder (principal); I10 Essential (primary) hypertension; M77.8 Other enthesopathies, not elsewhere classified; M17.9 Osteoarthritis of knee, unspecified
CPT/HCPCS: 36415; 73030; 73564; 80048; 80076; 83735; 83880; 84484; 85025; 93005; 96372; 99284; J1885

== ENCOUNTER 2023-06-30 16:58 | Emergency (ER) | payer OTHER, SELFPAY ==
--- NOTE | ~2023-06-30 | XR_ITS ---
EXAMINATION: XR CHEST CLINICAL INFORMATION: Dizziness. COMPARISON: Chest radiograph 12/03/2022. TECHNIQUE: Frontal view of the chest was obtained. FINDINGS: Stable prominence of the cardiomediastinal silhouette. No focal airspace opacity, pleural effusion or pneumothorax. No acute osseous abnormalities. The visualized upper abdomen is within normal limits. XR/XR chest 1V IMPRESSION: 1. No acute cardiopulmonary findings. 2. Stable prominence of the cardiomediastinal silhouette.
--- NOTE | ~2023-06-30 | XR_ITS ---
EXAMINATION: XR KNEE, LEFT CLINICAL INFORMATION: Pain and swelling. COMPARISON: Radiograph left knee 05/16/2023. TECHNIQUE: Two views of the left knee. FINDINGS: No acute fractures or subluxation. Marginal spurring in the medial and lateral compartments. Prominent marginal spurring and joint space loss in the patellofemoral compartment. Chondrocalcinosis redemonstrated. Stable small joint effusion. XR/XR knee LT 2V IMPRESSION: 1. No acute fractures or subluxation. 2. 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 3. Chondrocalcinosis. 4. Stable small joint effusion.
[2023-06-30 18:03] VITALS: BP 146/76; PULSE 72; RESP 18; TEMP 37.3; O2SAT 97; BMI 35.3
--- NOTE | 2023-06-30 18:09 | ECG_ITS ---
Test Reason : DIZZINESS Blood Pressure : / mmHG Vent. Rate : 065 BPM Atrial Rate : 065 BPM P-R Int : 148 ms QRS Dur : 086 ms QT Int : 404 ms P-R-T Axes : 057 022 045 degrees QTc Int : 420 ms Normal sinus rhythm Normal ECG When compared with ECG of 16-MAY-2023 17:04, No significant change was found Referred By: Edmond Taylor Electronically Signed By:Sony Lyles
--- NOTE | 2023-06-30 18:11 | ED.GENADULT ---
HPI - General Adult General Chief complaint: Dizziness Stated complaint: L Knee swollen / dizziness Time Seen by Provider: 06/30/23 20:26 Source: patient Mode of arrival: ambulatory Limitations: no limitations History of Present Illness HPI narrative: 72-year-old female came in with multiple complaints. Left knee pain only when she turned her left knee to the right or left, patient otherwise able to walk normally with her own walker, denies any fever, no chills, no trauma to the knee. Patient also been having intermittent dizziness spells/lightheadedness, intermittently no chest pain, no loss of consciousness or syncope. Patient scheduled to have colonoscopy in 1 month but concern of a skin tag in the rectal area that could be a cancer, no active rectal bleeding reported by the patient. Related Data Previous Rx's Medication Instructions Recorded acetaminophen 300 mg-codeine 30 mg 1 tab PO Q6H PRN pain #14 tabs 09/27/21 tablet albuterol sulfate 90 mcg/actuation 1 inh inhalation QID PRN shortness 09/25/22 aerosol inhaler of breath or wheezing #8.5 grams doxycycline monohydrate 100 mg 100 mg PO BID 7 days #14 tabs 09/25/22 tablet prednisone 20 mg tablet 40 mg PO DAILY bronchospasm 5 days 09/25/22 #10 tabs meloxicam 15 mg tablet 15 mg PO DAILY #10 tabs 11/21/22 omeprazole 20 mg capsule,delayed 20 mg PO DAILY #14 caps 11/21/22 release cyclobenzaprine 5 mg tablet 5 mg PO TID PRN muscle spasm #10 12/03/22 tabs meloxicam 15 mg tablet 15 mg PO DAILY Pain #7 tabs 12/03/22 ketorolac 10 mg tablet 10 mg PO TID PRN pain 5 days #15 05/16/23 tabs prednisone 20 mg tablet 40 mg PO DAILY 5 days #10 tabs 05/16/23 Allergies Allergy/AdvReac Type Severity Reaction Status Date / Time amoxicillin Allergy Hives Verified 06/30/23 18:02 Penicillins [PCN] Allergy Unknown Verified 06/30/23 18:02 Review of Systems Review of Systems: All other systems are reviewed and are negative Constitutional: Reports as per HPI and Reports no additional constitutional complaints Eyes: Reports as per HPI and Reports no additional eye complaints Reports system reviewed and no additional complaints, except as documented Cardiovascular: Reports as per HPI and Reports no additional cardiovascular complaints Respiratory: Reports as per HPI and Reports no additional respiratory complaints Gastrointestinal: Reports as per HPI and Reports no additional gastrointestinal complaints Genitourinary: Reports no additional female genitourinary complaints Musculoskeletal: Reports no additional musculoskeletal complaints Skin/Breast: Reports system reviewed and no additional complaints, except as docu Psychiatric: Reports no additional psychiatric complaints Endocrine: Reports no additional endocrine complaints Hematologic/Lymphatic: Reports no additional hematologic/lymphatic complaints Allergic/Immunologic: Reports no additional allergic/immunologic complaints Reports system reviewed and no additional complaints, except as documented and Reports Abnormal speech present [facility] Past Medical History Medical History Back pain Fluid retention in legs Hypertension Osteoporosis Social History Social History Alcohol intake: never Smoked in Last 30 Days: No Use of substances other than those prescribed or required for medical reasons: No Advance Directives: Yes Advance Directives on File: Yes Advance Directives Date on File: 09/27/21 Physical Exam ED Vital Signs: Vital Signs - 24 hr 06/30/23 18:03 06/30/23 19:49 06/30/23 19:49 Temperature 99.1 F Pulse Rate 72 59 67 Respiratory Rate 18 Blood Pressure 146/76 H 143/63 H 141/63 H Pulse Oximetry 97 Oxygen Delivery Method Room Air 06/30/23 19:49 06/30/23 21:47 07/01/23 01:21 Temperature 97.6 F Pulse Rate 65 78 62 Respiratory Rate 16 14 Blood Pressure 144/68 H 148/68 H 114/56 L Pulse Oximetry 98 95 Oxygen Delivery Method Room Air Room Air BMI result Body Mass Index 35.3 Vital signs have been reviewed as appeared to be correct. Blood pressure normal. Heart rate normal. Respiration rate normal. Temperature normal. Oxygen saturation normal. Appearance: Alert. Oriented X3. No acute distress. Head: Normal external exam. Normocephalic. Atraumatic. No Fernandez signs noted. No raccoon eyes noted Eyes: PERRLA. EOMI. Conjunctiva and sclera normal. Eyelids normal. ENT: TM's Normal. Pharynx normal. Uvula midline. Moist mucous membranes. No trismus noted. No drooling noted. No muffled voice noted. Neck: Normal inspection. Neck supple. FROM. No adenopathy. Thyroid Normal. No meningeal signs. No neck mass noted. CVS: Normal heart rate and rhythm. Heart sound normal. No murmurs noted. Pulses normal throughout. Respiratory: No respiratory distress. Painless inspiration. Breath sounds normal. No wheezes/rales/rhonchi noted. Chest nontender. No accessory muscle usage noted or decreased air movement noted. Abdomen: Soft and nontender. Bowel sounds normal in all 4 quadrants. No distention noted. No organomegaly noted. No visible injury noted. Rectal exam: Skin tag at 06:00 o'clock, no active bleeding, no external hemorrhoids, no palpable internal hemorrhoids, stool is brown with trace blood positive. Back: No CVA tenderness. Full range of motion noted. Skin: Skin warm and dry. Normal skin color. Normal skin turgor. No rashes/lesions/lacerations noted. Extremities: Left knee exam: Mild swelling, no deformity, no step-off, full range of motion. Neuro: Oriented X 3. Cranial nerve exam: II-XII are grossly intact No motor deficit. No sensory deficit. Reflexes normal. Course Course Course Narrative: RME- 72 female presents for evaluation of chronic left knee pain as well as dizzy spells since Sunday. Labs, EKG ordered Reevaluation(s) Reevaluation #1: 72-year-old female came in for evaluation of multiple complaints. 1. Left knee pain x-ray is consistent with degenerative disease of the left knee, patient is able to ambulate using her walker was instructed to follow-up with her PCP otherwise use Tylenol/NSAIDs for pain control. 2. Rectal skin tag non complicated with no bleeding because the patient concern of cancerous growth patient was instructed to discuss with her primary doctor for getting biopsy, patient is already scheduled to have colonoscopy in 4 weeks. Otherwise unremarkable labs will discharge to follow-up with PCP. Time: 01:43 Medical Decision Making Differential Diagnosis Differential Diagnoses: The differential diagnosis associated with the presentation includes (Hemorrhoid, rectal bleed, severe anemia, electrolyte abnormality, UTI, left knee DDD, left knee fracture.) Admission/Observation Consideration of admission/observation: Escalation of care including admission/observation considered Lab Data MDM Lab Attestation statement: I reviewed the patient's lab results. 06/30/23 18:31 06/30/23 18:31 Labs: Lab Results 06/30/23 06/30/23 06/30/23 Range/Units 18:31 18:31 18:31 WBC 9.1 (4.8-10.8) X10*3/uL RBC 4.87 (4.20-5.50) X10*6/uL Hgb 12.9 (12.0-16.0) g/dl Hct 40.6 (37.0-47.0) % MCV 83.4 (80.0-98.0) fL MCH 26.5 L (27.0-33.0) pg MCHC 31.8 (31.0-35.0) g/dl RDW 13.8 (11.0-16.0) % Plt Count 294 (160-400) X10*3/uL MPV 10.3 (9.4-12.3) fL Immature Gran % (Auto) 0.7 H (0.0-0.4) % Neut % (Auto) 71.0 (45-73) % Lymph % (Auto) 18.1 L (20-40) % [place] % (Auto) 8.1 (2-11) % Eos % (Auto) 1.0 (0-4) % Baso % (Auto) 1.1 (0-2) % Lymph # (Auto) 1.7 (1.2-4.9) X10*3/uL [place] # (Auto) 0.7 (0.1-1.2) X10*3/uL Eos # (Auto) 0.1 (0.0-0.4) X10*3/uL Baso # (Auto) 0.1 (0.0-0.2) X10*3/uL Abs Immat Gran (auto) 0.06 H (0.00-0.03) X10*3/uL Absolute Neuts (auto) 6.5 (2.0-8.3) x10*3/uL Absolute Nucleated RBC 0.000 (0.0-0.012) X10*3/uL Nucleated RBC % (auto) 0.0 (0.0-0.2) /100WBC Sodium 144 (135-145) mmol/L Potassium 3.8 (3.3-5.1) mmol/L Chloride 108 (96-108) mmol/L Carbon Dioxide 27 (22-29) mmol/L Anion Gap 13 (12-20) BUN 23 H (9-16) mg/dL Creatinine 0.90 (0.5-1.4) mg/dL Estim Creat Clear Calc 51.4 Estimated GFR > 60 Random Glucose 98 (60-115) mg/dL Calcium 10.2 (8.4-10.2) mg/dL Total Bilirubin 0.6 (0.0-1.0) mg/dL AST 22 (5-31) U/L ALT 16 (0-31) U/L Alkaline Phosphatase 130 H (39-117) U/L Total Protein 8.4 H (6.5-8.0) g/dL Albumin 4.5 (3.5-5.0) g/dL Lipase 7 L (8-78) U/L Urine Color Dark Yellow Urine Appearance Clear Urine pH 5.5 (5.0-9.0) Ur Specific [place] >= 1.030 H (1.005-1.025) Urine Protein Trace (Neg-Trace) mg/dL Urine Glucose (UA) Negative (Negative) mg/dL Urine Ketones Trace (Negative) mg/dL Urine Blood Negative (Negative) Urine Nitrite Negative (Negative) Ur Leukocyte Esterase Trace H (Negative) Urine RBC 0-2 (0-2) /HPF Urine WBC 0-5 (0-5) /HPF Ur Squamous Epith Cells 6-10 (0-2) /HPF Urine Bacteria None Seen (None Seen) Hyaline Casts 0-2 (0-2) /LPF Stool Occult Blood (NEGATIVE) 07/01/23 Range/Units 01:37 WBC (4.8-10.8) X10*3/uL RBC (4.20-5.50) X10*6/uL Hgb (12.0-16.0) g/dl Hct (37.0-47.0) % MCV (80.0-98.0) fL MCH (27.0-33.0) pg MCHC (31.0-35.0) g/dl RDW (11.0-16.0) % Plt Count (160-400) X10*3/uL MPV (9.4-12.3) fL Immature Gran % (Auto) (0.0-0.4) % Neut % (Auto) (45-73) % Lymph % (Auto) (20-40) % [place] % (Auto) (2-11) % Eos % (Auto) (0-4) % Baso % (Auto) (0-2) % Lymph # (Auto) (1.2-4.9) X10*3/uL [place] # (Auto) (0.1-1.2) X10*3/uL Eos # (Auto) (0.0-0.4) X10*3/uL Baso # (Auto) (0.0-0.2) X10*3/uL Abs Immat Gran (auto) (0.00-0.03) X10*3/uL Absolute Neuts (auto) (2.0-8.3) x10*3/uL Absolute Nucleated RBC (0.0-0.012) X10*3/uL Nucleated RBC % (auto) (0.0-0.2) /100WBC Sodium (135-145) mmol/L Potassium (3.3-5.1) mmol/L Chloride (96-108) mmol/L Carbon Dioxide (22-29) mmol/L Anion Gap (12-20) BUN (9-16) mg/dL Creatinine (0.5-1.4) mg/dL Estim Creat Clear Calc Estimated GFR Random Glucose (60-115) mg/dL Calcium (8.4-10.2) mg/dL Total Bilirubin (0.0-1.0) mg/dL AST (5-31) U/L ALT (0-31) U/L Alkaline Phosphatase (39-117) U/L Total Protein (6.5-8.0) g/dL Albumin (3.5-5.0) g/dL Lipase (8-78) U/L Urine Color Urine Appearance Urine pH (5.0-9.0) Ur Specific [place] (1.005-1.025) Urine Protein (Neg-Trace) mg/dL Urine Glucose (UA) (Negative) mg/dL Urine Ketones (Negative) mg/dL Urine Blood (Negative) Urine Nitrite (Negative) Ur Leukocyte Esterase (Negative) Urine RBC (0-2) /HPF Urine WBC (0-5) /HPF Ur Squamous Epith Cells (0-2) /HPF Urine Bacteria (None Seen) Hyaline Casts (0-2) /LPF Stool Occult Blood POSITIVE (NEGATIVE) Independent Interpretation I performed an independent interpretation of an: Plain X-Ray (Chest/left knee x-ray:1. No acute fractures or subluxation. 2. 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 3. Chondrocalcinosis. 4. Stable small joint effusion. ) Radiology Impression Discussion of test interpretation with radiology: I have reviewed the radiologist's reading. (1. No acute fractures or subluxation. 2. 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 3. Chondrocalcinosis. 4. Stable small joint effusion. ) Discharge Plan Discharge Clinical Impression: Arthralgia, Skin tags, anus or rectum Patient Disposition: Home, Self-Care Instructions: Arthralgia (ED) Prescriptions: No Action doxycycline monohydrate 100 mg tablet 100 mg PO BID 7 Days Qty: 14 0RF albuterol sulfate 90 mcg/actuation HFA aerosol inhaler 1 inh inhalation QID PRN (Reason: shortness of breath or wheezing) Qty: 8.5 0RF prednisone 20 mg tablet 40 mg PO DAILY 5 Days Qty: 10 0RF meloxicam 15 mg tablet 15 mg PO DAILY Qty: 10 0RF omeprazole 20 mg capsule,delayed release(DR/EC) 20 mg PO DAILY Qty: 14 0RF acetaminophen-codeine 300-30 mg tablet 1 tab PO Q6H PRN (Reason: pain) Qty: 14 0RF meloxicam 15 mg tablet 15 mg PO DAILY Qty: 7 0RF cyclobenzaprine 5 mg tablet 5 mg PO TID PRN (Reason: muscle spasm) Qty: 10 0RF Rx Instructions: This medication can cause drowsiness, use with caution prednisone 20 mg tablet 40 mg PO DAILY 5 Days Qty: 10 0RF ketorolac 10 mg tablet 10 mg PO TID PRN (Reason: pain) 5 Days Qty: 15 0RF Referrals: Destini Gutierrez PA-C [Primary Care Provider] -
[2023-06-30 18:39] LABS: MANUAL DIFF FLAG NO
[2023-06-30 18:46] LABS: Appearance Urine Clear; Bacteria Urine None Seen (None Seen); Color Urine Dark Yellow; Glucose Urine UA Negative (Negative); Hyaline Casts Urine 0-2 /LPF (0-2); Leukocyte Esterase Urine Trace (Negative); Nitrite Urine Negative (Negative); PH 5.5 (5.0-9.0); RBC Urine 0-2 /HPF (0-2); Specific Gravity - Urine >= 1.030 (1.005-1.025); UMIC TRIGGER UACC YES; Urine Blood Negative (Negative); Urine Ketones Trace mg/dL (Negative); Urine Protein Trace mg/dL (Neg-Trace); WBC Urine 0-5 /HPF (0-5)
[2023-06-30 19:01] LABS: Basophils Absolute Auto 0.1 X10*3/uL (0.0-0.2); Basophils Percent Auto 1.1 % (0-2); Eosinophils Absolute Auto 0.1 X10*3/uL (0.0-0.4); Hematocrit 40.6 % (37.0-47.0); Hemoglobin 12.9 g/dl (12.0-16.0); Imm Gran Abs Auto 0.06 X10*3/uL (0.00-0.03); Imm Gran Pct Auto 0.7 % (0.0-0.4); Lymphocytes Absolute Auto 1.7 X10*3/uL (1.2-4.9); Lymphocytes Percent Auto 18.1 % (20-40); Mean Corpuscular HGB Conc 31.8 g/dl (31.0-35.0); Mean Corpuscular Hemoglobin 26.5 pg (27.0-33.0); Mean Corpuscular Volume 83.4 fL (80.0-98.0); Mean Platelet Volume 10.3 fL (9.4-12.3); Monocytes Absolute Auto 0.7 X10*3/uL (0.1-1.2); Monocytes Percent Auto 8.1 % (2-11); Neutrophils Absolute Auto 6.5 x10*3/uL (2.0-8.3); Platelet Count 294 X10*3/uL (160-400); Red Blood Count 4.87 X10*6/uL (4.20-5.50); Red Cell Distribution Width 13.8 % (11.0-16.0); White Blood Count 9.1 X10*3/uL (4.8-10.8)
[2023-06-30 19:04] LABS: Alanine Aminotransferase 16 U/L (0-31); Albumin Level 4.5 g/dL (3.5-5.0); Alkaline Phosphatase 130 U/L (39-117); Anion Gap 13 (12-20); Aspartate Amino Transferase 22 U/L (5-31); Bilirubin Total 0.6 mg/dL (0.0-1.0); Blood Urea Nitrogen 23 mg/dL (9-16); Calcium 10.2 mg/dL (8.4-10.2); Carbon Dioxide 27 mmol/L (22-29); Chloride 108 mmol/L (96-108); Creatinine Clr Calc Pharmacy 51.4; Estimated Glomerular Filt Rate > 60; Glucose Random 98 mg/dL (60-115); Lipase 7 U/L (8-78); Potassium 3.8 mmol/L (3.3-5.1); Sodium 144 mmol/L (135-145); Total Protein 8.4 g/dL (6.5-8.0)
[2023-06-30 19:49] VITALS: BP 141/63; BP 143/63; BP 144/68; PULSE 59; PULSE 65; PULSE 67
--- NOTE | 2023-06-30 20:56 | ED.DIZZY ---
HPI - Dizziness General Chief Complaint: Dizziness Stated Complaint: L Knee swollen / dizziness Time Seen by Provider: 06/30/23 20:26 Related Data Previous Rx's Medication Instructions Recorded acetaminophen 300 mg-codeine 30 mg 1 tab PO Q6H PRN pain #14 tabs 09/27/21 tablet albuterol sulfate 90 mcg/actuation 1 inh inhalation QID PRN shortness 09/25/22 aerosol inhaler of breath or wheezing #8.5 grams doxycycline monohydrate 100 mg 100 mg PO BID 7 days #14 tabs 09/25/22 tablet prednisone 20 mg tablet 40 mg PO DAILY bronchospasm 5 days 09/25/22 #10 tabs meloxicam 15 mg tablet 15 mg PO DAILY #10 tabs 11/21/22 omeprazole 20 mg capsule,delayed 20 mg PO DAILY #14 caps 11/21/22 release cyclobenzaprine 5 mg tablet 5 mg PO TID PRN muscle spasm #10 12/03/22 tabs meloxicam 15 mg tablet 15 mg PO DAILY Pain #7 tabs 12/03/22 ketorolac 10 mg tablet 10 mg PO TID PRN pain 5 days #15 05/16/23 tabs prednisone 20 mg tablet 40 mg PO DAILY 5 days #10 tabs 05/16/23 Allergies Allergy/AdvReac Type Severity Reaction Status Date / Time amoxicillin Allergy Hives Verified 06/30/23 18:02 Penicillins [PCN] Allergy Unknown Verified 06/30/23 18:02 [facility] Past Medical History Medical History Back pain Fluid retention in legs Hypertension Osteoporosis Social History Social History Alcohol intake: never Smoked in Last 30 Days: No Use of substances other than those prescribed or required for medical reasons: No Advance Directives: Yes Advance Directives on File: Yes Advance Directives Date on File: 09/27/21 Physical Exam Vital Signs: Vital Signs: Last Vital Signs Temp 97.6 F 06/30/23 21:47 Pulse 62 07/01/23 01:21 Resp 14 07/01/23 01:21 BP 114/56 L 07/01/23 01:21 Pulse Ox 95 07/01/23 01:21 O2 Del Method Room Air 08/13/23 01:21 BMI result Body Mass Index 35.3 Medical Decision Making Lab Data 06/30/23 18:31 06/30/23 18:31 Labs: Lab Results 06/30/23 06/30/23 06/30/23 Range/Units 18:31 18:31 18:31 WBC 9.1 (4.8-10.8) X10*3/uL RBC 4.87 (4.20-5.50) X10*6/uL Hgb 12.9 (12.0-16.0) g/dl Hct 40.6 (37.0-47.0) % MCV 83.4 (80.0-98.0) fL MCH 26.5 L (27.0-33.0) pg MCHC 31.8 (31.0-35.0) g/dl RDW 13.8 (11.0-16.0) % Plt Count 294 (160-400) X10*3/uL MPV 10.3 (9.4-12.3) fL Immature Gran % (Auto) 0.7 H (0.0-0.4) % Neut % (Auto) 71.0 (45-73) % Lymph % (Auto) 18.1 L (20-40) % [place] % (Auto) 8.1 (2-11) % Eos % (Auto) 1.0 (0-4) % Baso % (Auto) 1.1 (0-2) % Lymph # (Auto) 1.7 (1.2-4.9) X10*3/uL [place] # (Auto) 0.7 (0.1-1.2) X10*3/uL Eos # (Auto) 0.1 (0.0-0.4) X10*3/uL Baso # (Auto) 0.1 (0.0-0.2) X10*3/uL Abs Immat Gran (auto) 0.06 H (0.00-0.03) X10*3/uL Absolute Neuts (auto) 6.5 (2.0-8.3) x10*3/uL Absolute Nucleated RBC 0.000 (0.0-0.012) X10*3/uL Nucleated RBC % (auto) 0.0 (0.0-0.2) /100WBC Sodium 144 (135-145) mmol/L Potassium 3.8 (3.3-5.1) mmol/L Chloride 108 (96-108) mmol/L Carbon Dioxide 27 (22-29) mmol/L Anion Gap 13 (12-20) BUN 23 H (9-16) mg/dL Creatinine 0.90 (0.5-1.4) mg/dL Estim Creat Clear Calc 51.4 Estimated GFR > 60 Random Glucose 98 (60-115) mg/dL Calcium 10.2 (8.4-10.2) mg/dL Total Bilirubin 0.6 (0.0-1.0) mg/dL AST 22 (5-31) U/L ALT 16 (0-31) U/L Alkaline Phosphatase 130 H (39-117) U/L Total Protein 8.4 H (6.5-8.0) g/dL Albumin 4.5 (3.5-5.0) g/dL Lipase 7 L (8-78) U/L Urine Color Dark Yellow Urine Appearance Clear Urine pH 5.5 (5.0-9.0) Ur Specific [place] >= 1.030 H (1.005-1.025) Urine Protein Trace (Neg-Trace) mg/dL Urine Glucose (UA) Negative (Negative) mg/dL Urine Ketones Trace (Negative) mg/dL Urine Blood Negative (Negative) Urine Nitrite Negative (Negative) Ur Leukocyte Esterase Trace H (Negative) Urine RBC 0-2 (0-2) /HPF Urine WBC 0-5 (0-5) /HPF Ur Squamous Epith Cells 6-10 (0-2) /HPF Urine Bacteria None Seen (None Seen) Hyaline Casts 0-2 (0-2) /LPF Discharge Plan Discharge Prescriptions: No Action doxycycline monohydrate 100 mg tablet 100 mg PO BID 7 Days Qty: 14 0RF albuterol sulfate 90 mcg/actuation HFA aerosol inhaler 1 inh inhalation QID PRN (Reason: shortness of breath or wheezing) Qty: 8.5 0RF prednisone 20 mg tablet 40 mg PO DAILY 5 Days Qty: 10 0RF meloxicam 15 mg tablet 15 mg PO DAILY Qty: 10 0RF omeprazole 20 mg capsule,delayed release(DR/EC) 20 mg PO DAILY Qty: 14 0RF acetaminophen-codeine 300-30 mg tablet 1 tab PO Q6H PRN (Reason: pain) Qty: 14 0RF meloxicam 15 mg tablet 15 mg PO DAILY Qty: 7 0RF cyclobenzaprine 5 mg tablet 5 mg PO TID PRN (Reason: muscle spasm) Qty: 10 0RF Rx Instructions: This medication can cause drowsiness, use with caution prednisone 20 mg tablet 40 mg PO DAILY 5 Days Qty: 10 0RF ketorolac 10 mg tablet 10 mg PO TID PRN (Reason: pain) 5 Days Qty: 15 0RF
[2023-06-30 21:47] VITALS: BP 148/68; PULSE 78; RESP 16; TEMP 36.4; O2SAT 98
[2023-07-01 01:21] VITALS: BP 114/56; PULSE 62; RESP 14; O2SAT 95
[2023-07-01 01:45] LABS: OBS1 POSITIVE (NEGATIVE)
[2023-07-01 01:46] LABS: OBS Int Ctl Valid YES
--- NOTE | 2023-07-01 02:14 | PC.NURSE ---
Reviewed discharge instruction with pt. pt verbalized understanding. Notified GENARO Barron.
== END 2023-07-01 02:16 | disposition home or self-care (01) ==
PROVIDERS: Physician Assistant; Emergency Provider Emergency Medicine; PCP Physician Assistant
DX: M25.562 Pain in left knee (principal); R42 Dizziness and giddiness; K64.4 Residual hemorrhoidal skin tags; M25.50 Pain in unspecified joint
CPT/HCPCS: 36415; 71045; 73560; 80053; 81001; 82272; 83690; 85025; 93005; 99284; 99285

== ENCOUNTER → 2023-06-30 18:09 | Outpatient (BNV) | payer OTHER, SELFPAY | PROVIDERS: Emergency Provider Emergency Medicine; PCP Physician Assistant; Visit Provider Internal Medicine Cardiovascular Disease | DX: R42 Dizziness and giddiness (principal) | CPT/HCPCS: 93010 ==

== ENCOUNTER 2023-08-14 16:05 | Emergency (ER) | payer OTHER, SELFPAY ==
--- NOTE | ~2023-08-14 | XR_ITS ---
EXAMINATION: XR TIBIA AND FIBULA, RIGHT CLINICAL INFORMATION: Pain. Spider bite. COMPARISON: None available. TECHNIQUE: AP and lateral views of the right tibia and fibula were obtained. FINDINGS: Bone alignment is normal. No fracture or dislocation. Medial and lateral degenerative meniscal calcification at the knee. Degenerative changes at the patellofemoral joint. Normal ankle joint. Small calcaneal spurs. Soft tissues are otherwise normal. XR/XR tibia fibula RT 2V IMPRESSION: Mild degenerative changes at the knee joint. Calcaneal spurs.
--- NOTE | ~2023-08-14 | US_ITS ---
EXAMINATION: US VENOUS ULTRASOUND WITH DOPPLER LOWER EXTREMITY, RIGHT CLINICAL INFORMATION: Pain. Spider bite. COMPARISON: None available. TECHNIQUE: Ultrasound of the deep veins is performed from the hip to the calf with compression sonography and color and pulse Doppler assessment. Spectral analysis with color-flow imaging is performed. FINDINGS: There is normal venous compression and respiratory variation and augmented flow. The visualized common femoral vein, superficial femoral vein, profunda femoral vein, popliteal vein, and the trifurcation region shows no evidence of deep venous thrombosis. There is a 2.2 x 1.2 x 1.7 cm fluid collection in the soft tissues of the medial knee. No fluid collection seen in the area of the spine bite in the anterior distal lynch. US/US venous duplex LE RT IMPRESSION: No DVT demonstrated in the right lower extremity. 2.2 x 1.2 x 1.7 cm fluid collection adjacent to the medial knee.
[2023-08-14 16:22] VITALS: BP 150/73; PULSE 69; RESP 18; TEMP 36.7; O2SAT 99; BMI 35.1
--- NOTE | 2023-08-14 16:22 | ED_ITS ---
HPI - General Adult General Chief complaint: Animal Bite Stated complaint: Right leg pain, can't walk 4 days Time Seen by Provider: 08/14/23 18:49 Source: patient and family Mode of arrival: ambulatory Limitations: no limitations History of Present Illness HPI narrative: 73-year-old female came in with right leg pain started for days ago after notice that she has been bitten by a spider 4 days ago, patient noticed subjective swelling and pain to the right leg, worse with bearing weight on the leg. No fall, no fever, no chills, no drainage or abscess, no redness, no hotness. Related Data Previous Rx's Medication Instructions Recorded acetaminophen 300 mg-codeine 30 mg 1 tab PO Q6H PRN pain #14 tabs 09/27/21 tablet albuterol sulfate 90 mcg/actuation 1 inh inhalation QID PRN shortness 09/25/22 aerosol inhaler of breath or wheezing #8.5 grams doxycycline monohydrate 100 mg 100 mg PO BID 7 days #14 tabs 09/25/22 tablet prednisone 20 mg tablet 40 mg (2 x 20 mg) PO DAILY 09/25/22 bronchospasm 5 days #10 tabs meloxicam 15 mg tablet 15 mg PO DAILY #10 tabs 11/21/22 omeprazole 20 mg capsule,delayed 20 mg PO DAILY #14 caps 11/21/22 release cyclobenzaprine 5 mg tablet 5 mg PO TID PRN muscle spasm #10 12/03/22 tabs meloxicam 15 mg tablet 15 mg PO DAILY Pain #7 tabs 12/03/22 ketorolac 10 mg tablet 10 mg PO TID PRN pain 5 days #15 05/16/23 tabs prednisone 20 mg tablet 40 mg (2 x 20 mg) PO DAILY 5 days 05/16/23 #10 tabs oxycodone 5 mg tablet 5 mg PO Q8H PRN pain #10 tabs 08/14/23 Allergies Allergy/AdvReac Type Severity Reaction Status Date / Time amoxicillin Allergy Hives Verified 06/30/23 18:02 Penicillins [PCN] Allergy Unknown Verified 06/30/23 18:02 Review of Systems Review of Systems: All other systems are reviewed and are negative Constitutional: Reports as per HPI and Reports no additional constitutional complaints Eyes: Reports as per HPI and Reports no additional eye complaints Reports system reviewed and no additional complaints, except as documented Cardiovascular: Reports as per HPI and Reports no additional cardiovascular complaints Respiratory: Reports as per HPI and Reports no additional respiratory complaints Gastrointestinal: Reports as per HPI and Reports no additional gastrointestinal complaints Genitourinary: Reports no additional female genitourinary complaints Musculoskeletal: Reports no additional musculoskeletal complaints Skin/Breast: Reports system reviewed and no additional complaints, except as docu Psychiatric: Reports no additional psychiatric complaints Endocrine: Reports no additional endocrine complaints Hematologic/Lymphatic: Reports no additional hematologic/lymphatic complaints Allergic/Immunologic: Reports no additional allergic/immunologic complaints Reports system reviewed and no additional complaints, except as documented and Reports Abnormal speech present [facility] Past Medical History Medical History Back pain Fluid retention in legs Hypertension Osteoporosis Social History Social History Alcohol intake: never Advance Directives: Yes Advance Directives on File: Yes Advance Directives Date on File: 09/27/21 Physical Exam ED Vital Signs: Vital Signs - 24 hr 08/14/23 16:22 08/14/23 18:12 Temperature 98.1 F 98.8 F Pulse Rate 69 60 Respiratory Rate 18 20 Blood Pressure 150/73 H 147/79 H Pulse Oximetry 99 99 Oxygen Delivery Method Room Air Room Air BMI result Body Mass Index 35.1 Vital signs have been reviewed and appear to be correct. Blood pressure elevated. Heart rate normal. Respiratory rate normal. Temperature normal. Oxygen saturation normal. Appearance: Alert. Oriented X3. No acute distress. Head: Normal external exam. Normocephalic. Atraumatic. No Fernandez signs noted. No raccoon eyes noted Eyes: PERRLA. EOMI. Conjunctiva and sclera normal. Eyelids normal. ENT: TM's Normal. Pharynx normal. Uvula midline. Moist mucous membranes. No trismus noted. No drooling noted. No muffled voice noted. Neck: Normal inspection. Neck supple. FROM. No adenopathy. Thyroid Normal. No meningeal signs. No neck mass noted. CVS: Normal heart rate and rhythm. Heart sound normal. No murmurs noted. Pulses normal throughout. Respiratory: No respiratory distress. Painless inspiration. Breath sounds normal. No wheezes/rales/rhonchi noted. Chest nontender. No accessory muscle usage noted or decreased air movement noted. Abdomen: Soft and nontender. Bowel sounds normal in all 4 quadrants. No distention noted. No organomegaly noted. No visible injury noted. Back: No CVA tenderness. Full range of motion noted. Skin: Skin warm and dry. Normal skin color. Normal skin turgor. No rashes/lesions/lacerations noted. Extremities: No lower extremity edema. Extremities exhibit normal range of motion. Extremities nontender. Neuro: Oriented X 3. Cranial nerve exam: II-XII are grossly intact No motor deficit. No sensory deficit. Reflexes normal. Course Course Course Narrative: This is an RME: Additional HPI, ROS, PE not included below will be deferred to primary provider. 72 y o female presenting for evaluation of R leg pain s/p spider bite on Sunday. Stating she has been having worsening leg pain and it is difficult to ambulate d/t pain. Denies fever, chills, chest pain, shortness of breath, abd pain. No hx of blood clots Plan -- [facility] Reevaluation(s) Reevaluation #1: 72-year-old female came in for evaluation of right leg pain and unable to ambulate due to pain, s/p spider bite to the chin of the right leg, patient feels swelling of right leg, no DVT on the ultrasound, plain x-ray show no osseous involvement, ultrasound is reading 2 x 2 cm area of fluid collection medial to the right knee with no tenderness or swelling is appreciated on the clinical exam. Patient feels better with oxycodone will discharge with the oxycodone. Medications Administered Discontinued Medications Generic Name Dose Route Start Last Admin Trade Name Tristianq PRN Reason Stop Dose Admin Oxycodone HCl 5 mg 08/14/23 19:04 08/14/23 19:47 Oxycodone Hcl Immed Release 5 Mg Tablet PO 08/14/23 19:05 5 mg ONCE ONE Administration Medical Decision Making Differential Diagnosis Differential Diagnoses: The differential diagnosis associated with the presentation includes (DVT, abscess, cellulitis, tib or fib fracture, electrolyte abnormality, severe anemia.) Admission/Observation Consideration of admission/observation: Escalation of care including admission/observation considered Independent Interpretation I performed an independent interpretation of an: Plain X-Ray (right leg x-ray: Mild degenerative change of the knee joint calcaneal spurs) and Ultrasound (Right leg ultrasound:No DVT demonstrated in the right lower extremity. 2.2 x 1 .2 x 1.7 cm fluid collection adjacent to the medial knee.) Radiology Impression Discussion of test interpretation with radiology: I have reviewed the r adiologist's reading. Discharge Plan Discharge Clinical Impression: Edema of right lower leg Patient Disposition: Home, Self-Care Instructions: Leg Edema (ED) Prescriptions: New oxycodone 5 mg tablet 5 mg PO Q8H PRN (Reason: pain) Qty: 10 0RF Rx Instructions: Partial Fill upon patient request. No Action doxycycline monohydrate 100 mg tablet 100 mg PO BID 7 Days Qty: 14 0RF albuterol sulfate 90 mcg/actuation HFA aerosol inhaler 1 inh inhalation QID PRN (Reason: shortness of breath or wheezing) Qty: 8.5 0RF prednisone 20 mg tablet 40 mg PO DAILY 5 Days Qty: 10 0RF meloxicam 15 mg tablet 15 mg PO DAILY Qty: 10 0RF omeprazole 20 mg capsule,delayed release(DR/EC) 20 mg PO DAILY Qty: 14 0RF acetaminophen-codeine 300-30 mg tablet 1 tab PO Q6H PRN (Reason: pain) Qty: 14 0RF meloxicam 15 mg tablet 15 mg PO DAILY Qty: 7 0RF cyclobenzaprine 5 mg tablet 5 mg PO TID PRN (Reason: muscle spasm) Qty: 10 0RF Rx Instructions: This medication can cause drowsiness, use with caution prednisone 20 mg tablet 40 mg PO DAILY 5 Days Qty: 10 0RF ketorolac 10 mg tablet 10 mg PO TID PRN (Reason: pain) 5 Days Qty: 15 0RF Referrals: Physician,Unknown J [Primary Care Provider] -
[2023-08-14 18:12] VITALS: BP 147/79; PULSE 60; RESP 20; TEMP 37.1; O2SAT 99
[2023-08-14] MEDS: oxyCODONE HCl Immed Release 5 MG TABLET PO (19:47)
[2023-08-14 20:21] VITALS: BP 156/83; PULSE 63; RESP 18; TEMP 37.2; O2SAT 95
[2023-08-14 20:40] LABS: MANUAL DIFF FLAG NO
[2023-08-14 20:46] LABS: Basophils Absolute Auto 0.1 X10*3/uL (0.0-0.2); Basophils Percent Auto 1.2 % (0-2); Eosinophils Absolute Auto 0.1 X10*3/uL (0.0-0.4); Eosinophils Percent Auto 1.4 % (0-4); Hematocrit 40.2 % (37.0-47.0); Hemoglobin 12.8 g/dl (12.0-16.0); Imm Gran Abs Auto 0.02 X10*3/uL (0.00-0.03); Imm Gran Pct Auto 0.2 % (0.0-0.4); Mean Corpuscular HGB Conc 31.8 g/dl (31.0-35.0); Mean Corpuscular Hemoglobin 26.7 pg (27.0-33.0); Mean Corpuscular Volume 83.8 fL (80.0-98.0); Monocytes Absolute Auto 0.7 X10*3/uL (0.1-1.2); Monocytes Percent Auto 6.7 % (2-11); Neutrophils Absolute Auto 6.7 x10*3/uL (2.0-8.3); Neutrophils Percent Auto 69.5 % (45-73); Platelet Count 282 X10*3/uL (160-400); Red Cell Distribution Width 13.5 % (11.0-16.0); White Blood Count 9.7 X10*3/uL (4.8-10.8)
[2023-08-14 20:56] LABS: Anion Gap 15 (12-20); Blood Urea Nitrogen 12 mg/dL (9-16); Calcium 9.7 mg/dL (8.4-10.2); Carbon Dioxide 20 mmol/L (22-29); Chloride 107 mmol/L (96-108); Creatinine Clr Calc Pharmacy 65.9; Estimated Glomerular Filt Rate > 60; Glucose Random 96 mg/dL (60-115); Potassium 3.9 mmol/L (3.3-5.1); Sodium 138 mmol/L (135-145)
== END 2023-08-14 21:30 | disposition home or self-care (01) ==
PROVIDERS: Emergency Provider Emergency Medicine
DX: R60.0 Localized edema (principal); M79.604 Pain in right leg; Z79.899 Other long term (current) drug therapy
CPT/HCPCS: 36415; 73590; 80048; 85025; 93971; 99283; 99284

== ENCOUNTER 2023-10-10 07:28 | Day surgery (SDC) | payer OTHER, SELFPAY ==
[2023-10-08 13:36] VITALS: BMI 35.1
--- NOTE | 2023-10-09 09:30 | P.CONAN_ITS ---
Documented by User: Irasema Alcazar NP 10/09/23 09:32 HPI - Anesthesia Eval Consult details Narrative: 72yo F for Colonoscopy [facility] Past Medical History Medical History Asthma Back pain Fluid retention in legs Hypertension Osteoporosis Surgical History Surgical History H/O colonoscopy Social History Alcohol intake: never Patient Tobacco Use Status: Never used Tobacco Are you DNR?: No Advance Directives: No Advance Directives Information Provided: Yes Advance Directives Date on File: 09/27/21 Nutrition Risks: No Nutritional Risk Meds Allergies Allergy/AdvReac Type Severity Reaction Status Date / Time amoxicillin Allergy Intermediate Hives Verified 10/08/23 13:42 Penicillins [PCN] Allergy Intermediate Hives Verified 10/08/23 13:42 Home Medications Medication Instructions Recorded Confirmed Last Taken Type calcium carbonate 600 mg-vitamin 2 tab PO DAILY 10/08/23 10/08/23 Unknown History D3 10 mcg (400 unit) tablet hydrochlorothiazide 50 mg tablet 50 mg PO DAILY 10/08/23 10/08/23 Unknown History metoprolol succinate 50 mg 50 mg PO DAILY 10/08/23 10/08/23 Unknown History tablet,extended release 24 hr Exam Height,Weight and Vital Signs: Height 4 ft 11 in Weight 78.925 kg Pertinent Lab Results Pertinent Lab Results: Laboratory Tests 08/14/23 20:36 WBC 9.7 Hgb 12.8 Hct 40.2 Plt Count 282 Sodium 138 Potassium 3.9 Chloride 107 Carbon Dioxide 20 L BUN 12 Creatinine 0.70 Narrative Narrative: EKG 06/2023 Vent. Rate : 065 BPM Atrial Rate : 065 BPM P-R Int : 148 ms QRS Dur : 086 ms QT Int : 404 ms P-R-T Axes : 057 022 045 degrees QTc Int : 420 ms Normal sinus rhythm Normal ECG When compared with ECG of 16-MAY-2023 17:04, No significant change was found Assessment and Plan Assessment Anesthesia Assessment: Chart Reviewed Documented by User: Ligia Tineo MD 10/10/23 08:57 [facility] Past Medical History Medical History Asthma Back pain Fluid retention in legs Hypertension Osteoporosis Family History Family history of problems with anesthesia: No Surgical History Surgical History H/O colonoscopy History of Problems with Anesthesia: No Social History Alcohol intake: never Patient Tobacco Use Status: Never used Tobacco Are you DNR?: No Advance Directives: No Advance Directives Information Provided: Yes Advance Directives Date on File: 09/27/21 Nutrition Risks: No Nutritional Risk Meds Allergies Allergy/AdvReac Type Severity Reaction Status Date / Time amoxicillin Allergy Intermediate Hives Verified 10/08/23 13:42 Penicillins [PCN] Allergy Intermediate Hives Verified 10/08/23 13:42 Home Medications Medication Instructions Recorded Confirmed Last Taken Type calcium carbonate 600 mg-vitamin 2 tab PO DAILY 10/08/23 10/08/23 Unknown History D3 10 mcg (400 unit) tablet hydrochlorothiazide 50 mg tablet 50 mg PO DAILY 10/08/23 10/08/23 Unknown History metoprolol succinate 50 mg 50 mg PO DAILY 10/08/23 10/08/23 Unknown History tablet,extended release 24 hr Exam Airway Mallampati Class: II TM Dist: >3cm Neck ROM: Full Heart: rrr Lungs: cta Assessment and Plan Assessment Anesthesia Assessment: Anesthesia Plan Discussed Final Anesthetic Review Family History of Problems with Anesthesia: No History of Problems with Anesthesia: No NPO: Yes ASA Class: II Final Preanesthetic Review: No Changes in Pt Med Stat, Meds/Allgs Chart Reviewed, Consent Obtained/Reviewed and Anes Risks/Benef Reviewed Patient Risk: Low Procedure Risk: Low Anesthetic Plan Anesthetic Plan: MAC: Disposition: Standard PACU
[2023-10-10 07:47] VITALS: BP 150/86; PULSE 78; RESP 18; TEMP 36.1; O2SAT 96
[2023-10-10 07:57] VITALS: BMI 34.6
[2023-10-10] MEDS: Lactated Ringers 1,000 ML 100 ML IVCONT (08:06)
[2023-10-10] MEDS: Albuterol Sulfate (0.083%) 2.5 MG/3 ML VIAL.NEB INHALE (08:23)
[2023-10-10 08:26] VITALS: PULSE 64; RESP 16; O2SAT 95
--- NOTE | 2023-10-10 09:52 | PM.OP ---
Brief Operative Note Date of Service: 10/10/23 Pre-op diagnosis: Screening Post-op diagnosis: other (Diverticulosis, Internal hemorrhoids) Procedure: Colonoscopy to the cecum and TI Surgeon: Buzz De La O MD Anesthesia: MAC Was an Brass Plater used for this Procedure?: No Estimated blood loss (mL): 0 Pathology: none sent Condition: stable Disposition: PACU
[2023-10-10 09:56] VITALS: BP 126/63; PULSE 59; RESP 13; TEMP 36.2; O2SAT 97
[2023-10-10 10:11] VITALS: BP 125/70; PULSE 64; RESP 18; TEMP 36.9; O2SAT 97
--- NOTE | 2023-10-15 12:44 | OP_ITS ---
DATE OF SERVICE: 10/10/2023 SURGEON: Buzz De La O MD INDICATIONS: The patient presents for evaluation of colorectal cancer screening. Full consent was obtained from her for this, including risks of bleeding and perforation. PREOPERATIVE DIAGNOSIS: Colorectal cancer screening. POSTOPERATIVE DIAGNOSIS: PROCEDURE PERFORMED: Colonoscopy to the cecum and terminal ileum. ESTIMATED BLOOD LOSS: COMPLICATIONS: ANESTHESIA: Monitored anesthesia care. ASSISTANTS: SPECIMENS: POSTOPERATIVE DIAGNOSES: Colorectal cancer screening, mild sigmoid diverticulosis, internal hemorrhoids. DESCRIPTION OF PROCEDURE: The patient was placed in the left lateral decubitus position. The digital rectal exam revealed no abnormalities. The Olympus video pediatric colonoscope was entered into the rectum and advanced easily to the cecum. Once in the cecum, I did identify normal-appearing cecal pouch with appendiceal orifice and a normal-appearing ileocecal valve. The terminal ileum was cannulated and appeared normal. The scope was withdrawn back in the colon. The entire cecum and ileocecal valve appeared normal. The scope was slowly withdrawn assessing all mucosal surfaces carefully. Preparation was excellent. I did not visualize any sign of polyps, colitis, nor angiodysplasia. There was a mild amount of sigmoid diverticulosis. Attempts at retroflexing in the rectum were only partially successful, but I did obtain a good visualization of both the proximal and distal rectum in the forward viewing position. There was no sign of any mass nor ulceration. Internal hemorrhoids were noted. The scope was withdrawn from the patient. She tolerated the procedure well and was returned to the recovery area in stable condition. IMPRESSION: 1. Diverticulosis. 2. Internal hemorrhoids. PLAN: Given today's negative colonoscopy and no family history of colon cancer, I do not think that she would need any further screening colonoscopies. She was reminded to contact a surgeon if her gallstones ever become symptomatic. She will see me on a p.r.n. basis. MD CEE Valentin/CEDRICK / [id number] MTDD
== END 2023-10-10 10:41 | disposition home or self-care (01) ==
PROVIDERS: Visit Provider Internal Medicine
PROC: 0DJD8ZZ Inspection of Lower Intestinal Tract, Via Natural or Artificial Opening Endoscopic (ICD-10-PCS; CPT 45378; principal; 2023-10-10 08:30)
DX: Z12.11 Encounter for screening for malignant neoplasm of colon (principal); K57.30 Diverticulosis of large intestine without perforation or abscess without bleeding; K64.8 Other hemorrhoids; K80.20 Calculus of gallbladder without cholecystitis without obstruction; I10 Essential (primary) hypertension; J45.909 Unspecified asthma, uncomplicated; Z79.899 Other long term (current) drug therapy
CPT/HCPCS: G0121; 94640; J2704

== ENCOUNTER 2024-03-05 13:45 | Emergency (ER) | payer OTHER, SELFPAY ==
--- NOTE | ~2024-03-05 | US_ITS ---
EXAMINATION: US VENOUS ULTRASOUND WITH DOPPLER LOWER EXTREMITY, LEFT CLINICAL INFORMATION: Pain. COMPARISON: Right lower extremity ultrasound 08/14/2023. TECHNIQUE: Ultrasound of the deep veins is performed from the hip to the calf with compression sonography and color and pulse Doppler assessment. Spectral analysis with color-flow imaging is performed. FINDINGS: There is normal venous compression and respiratory variation and augmented flow. The visualized common femoral vein, superficial femoral vein, profunda femoral vein, popliteal vein, and the trifurcation region shows no evidence of deep venous thrombosis. There is no significant popliteal fossa cyst. If the patient's symptoms persist, followup ultrasound in 5 days 7 days might be of value to exclude proximal propagation from a non-visualized calf vein. US/US venous duplex LE LT IMPRESSION: No DVT demonstrated in the left lower extremity.
--- NOTE | ~2024-03-05 | XR_ITS ---
EXAMINATION: XR FOOT, LEFT CLINICAL INFORMATION: pt states left foot and ankle pain, unable to weightbear / no trauma COMPARISON: None available. TECHNIQUE: AP, lateral, and mortise views of the left ankle. AP, lateral, and oblique views of the left foot. FINDINGS: ANKLE No fracture. Alignment is anatomic. No erosions. Joint spaces are maintained. Significant soft tissue edema of the distal leg and ankle. FOOT No fracture. Alignment is anatomic. Joint spaces are maintained. Small calcaneal spur is unchanged. Small spur in the anterior proximal navicular bone. XR/XR ankle LT min 3V IMPRESSION: 1. No acute fracture or dislocation. 2. Significant soft tissue edema of the distal leg and ankle. 3. Small calcaneal spur.
--- NOTE | ~2024-03-05 | XR_ITS ---
EXAMINATION: XR FOOT, LEFT CLINICAL INFORMATION: pt states left foot and ankle pain, unable to weightbear / no trauma COMPARISON: None available. TECHNIQUE: AP, lateral, and mortise views of the left ankle. AP, lateral, and oblique views of the left foot. FINDINGS: ANKLE No fracture. Alignment is anatomic. No erosions. Joint spaces are maintained. Significant soft tissue edema of the distal leg and ankle. FOOT No fracture. Alignment is anatomic. Joint spaces are maintained. Small calcaneal spur is unchanged. Small spur in the anterior proximal navicular bone. XR/XR foot LT min 3V IMPRESSION: 1. No acute fracture or dislocation. 2. Significant soft tissue edema of the distal leg and ankle. 3. Small calcaneal spur.
[2024-03-05 13:51] VITALS: BP 155/65; PULSE 62; RESP 18; TEMP 36.3; O2SAT 97; BMI 35.1
--- NOTE | 2024-03-05 13:51 | ED_ITS ---
HPI - General Adult General Chief complaint: Extremity Injury, Lower Stated complaint: pain on bottom of feet Time Seen by Provider: 03/05/24 19:30 Source: patient, family (), RN notes reviewed and old records reviewed Mode of arrival: ambulatory Limitations: no limitations History of Present Illness HPI narrative: 73 year old male with pmhx significant for asthma, HTN, osteoporosis presents to the ED today for evaluation of increasing pain and swelling to left foot/ankle/lower leg x a few days. Denies trauma or injury. Admits to 2 different concerns. She states that the bottom of her left foot has been hurting, worse when she takes the 1st step out of bed in the morning. She has never had this pain before. Pain is exacerbated with bearing weight on the left foot. Additionally endorses increased swelling to the lower left leg over the last few days. She states that she is usually active during the day however has been more sedentary recently. Denies recent travel or long car rides. Denies history of VTE. Not on anticoagulation. Denies cardiac history. Currently ambulates with cane and walker. Denies fever, chills, chest pain, sob, wheezing, calf pain/tenderness, numbness/tingling/weakness of the LEs. Related Data Home Medications ?Medication ?Instructions ?Recorded ?Confirmed calcium carbonate 600 mg-vitamin 2 tab PO DAILY 10/08/23 10/08/23 D3 10 mcg (400 unit) tablet hydrochlorothiazide 50 mg tablet 50 mg PO DAILY 10/08/23 10/08/23 metoprolol succinate 50 mg 50 mg PO DAILY 10/08/23 10/08/23 tablet,extended release 24 hr Previous Rx's ?Medication ?Instructions ?Recorded albuterol sulfate 90 mcg/actuation 1 inh inhalation QID PRN shortness 09/25/22 aerosol inhaler of breath or wheezing #8.5 grams omeprazole 20 mg capsule,delayed 20 mg PO DAILY #14 caps 11/21/22 release compression panty, 1x-2x #1 ea 03/05/24 Allergies Allergy/AdvReac Type Severity Reaction Status Date / Time amoxicillin Allergy Intermediate Hives Verified 03/05/24 13:55 Penicillins [PCN] Allergy Intermediate Hives Verified 03/05/24 13:55 iodine AdvReac Blister Verified 03/05/24 13:55 Review of Systems 2 Review of Systems: Constitutional: No fever, chills, fatigue, night sweats, weight changes ENT/Mouth: No ear pain, hearing loss, nasal congestion, sinus pain, rhinorrhea, sore throat Eyes: No eye pain, swelling, redness, vision changes, discharge Cardio: No chest pain, palpitations, MOORE, orthopnea, peripheral edema Pulm: No SOB, cough, sputum, wheezing, dyspnea, hemoptysis GI: No nausea, vomiting, hematemesis, abdominal pain, diarrhea, constipation, hematochezia, melena : No irregular bleeding, dysuria, frequency, urgency, hesitancy, hematuria, flank pain, urinary flow changes, urinary incontinence or retention MSK: No back pain, neck pain, joint pain, myalgias, +left ankle pain/swelling Skin: No lesions, rashes Neuro: No weakness, numbness, paresthesias, LOC, dizziness, headache Psych: No anxiety/panic, depression, SI/HI, AH/VH All other systems reviewed and are negative. [facility] Past Medical History Attestation statement: The following information was validated with the patient. Source: old records reviewed and nursing notes reviewed Medical History Asthma Back pain Fluid retention in legs Hypertension Osteoporosis Surgical History H/O colonoscopy Social History Social History Alcohol intake: never Patient Tobacco Use Status: Never used Tobacco Advance Directives: Yes Advance Directives on File: Yes Advance Directives Date on File: 09/27/21 Physical Exam ED Vital Signs: Vital Signs - 24 hr 03/05/24 13:51 03/05/24 19:58 Temperature 97.3 F 97.3 F Pulse Rate 62 62 Respiratory Rate 18 18 Blood Pressure 155/65 H 155/65 H Pulse Oximetry 97 97 Oxygen Delivery Method Room Air Room Air BMI result Body Mass Index 35.1 Patient hypertensive, vitals otherwise WNL Const General: cooperative, healthy appearing, comfortable and no acute distress Orientation/consciousness: patient oriented x3 Limitations: no limitations HENMT Head: Yes normal to inspection, Yes No palpable skull fracture present, Yes normocephalic and Yes atraumatic Eyes General: appearance normal, both eyes and all related structures Conjunctivae: conjunctivae normal Sclerae: sclerae normal Pupils: Equal, round and reactive pupils present Neck Neck: Yes normal visual inspection and Yes full ROM Resp Effort & Inspection: normal respiratory effort and able to speak in complete sentences Auscultation: clear to auscultation bilaterally Cardio Other: 2+ dp/pt pulses Rate: regular rate Rhythm: regular rhythm Skin General skin exam: no rashes or lesions noted Neuro General: patient oriented x3 and gait normal Cranial nerves: Yes Equal, round and reactive pupils present Gait exam (Neuro): Normal gait present Extrem Other: + minimal nonpitting edema to left lower extremity extending from ankle to mid lower leg. No overlying skin changes. Nontender to palpation. 2+pt/dp pulses. FROM to left knee, ankle, toes. General: Yes normal to inspection and Yes full ROM Course Course Course Narrative: RME:?73 yo female hx of asthma, HTN, fluid retention here for eval of increasing pain and swelling to left foot. no trauma/injury. pain worse on waking in the morning and with palpation. having to favor her RLE. ambulates with cane and walker. active during the day however has been more sedentary recently. labs, xrays ordered Full HPI, ROS and PE to be performed by the primary ED provider. Reevaluation(s) Reevaluation #1: 1937-- CBC without leukocytosis or left shift. No anemia. H&H stable. Chemistry without acute electrolyte abnormality requiring intervention. BNP WNL > unlikely CHF. normal renal function. Transaminitis. X-ray left ankle does not demonstrate acute fracture. X-rays do show a heel spur along with edema of the left lower extremity. Venous duplex of the left lower extremity was obtained and does not show acute DVT. > discussed all results with patient. Patient likely has plantar fasciitis along with venous insufficiency. Discussed exercise techniques for treatment of plantar fasciitis. Compression stockings will be sent to pharmacy. Patient advised to elevate the extremities to help with swelling. Advised to follow up with PCP. Patient has remained stable throughout ED visit today. ambulating with steady gait. Discussed worrisome signs and symptoms and when to return to the ED. All questions answered at this time. Patient is agreeable with disposition and stable for discharge. Medical Decision Making Medical Decision Making [facility] Narrative: 73 year old male with pmhx significant for asthma, HTN, osteoporosis presents to the ED today for evaluation of increasing pain and swelling to left foot/ankle/lower leg x a few days. Patient hypertensive, vitals otherwise WNL. She is nontoxic-appearing and in no acute distress. Lungs CTA bilaterally. No crackles.minimal nonpitting edema to left lower extremity extending from ankle to mid lower leg. No overlying skin changes. Nontender to palpation. 2+pt/dp pulses. FROM to left knee, ankle, toes. Differential diagnosis includes sprain/strain, fracture, contusion, CHF, DVT, plantar fasciitis, chronic venous insufficiency. Lower suspicion for gout, pseudogout, septic arthritis, NV compromise, compartment syndrome, threat to limb. Plan for labs, x-ray, ultrasound, re-evaluation. Differential Diagnosis Differential Diagnoses: The differential diagnosis associated with the presentation includes As above Admission/Observation Not indicated Lab Data MDM Lab Attestation statement: I reviewed the patient's lab results. As above 03/05/24 14:30 03/05/24 14:30 Labs: Lab Results 03/05/24 Range/Units 14:30 WBC 7.1 (4.8-10.8) X10*3/uL RBC 4.83 (4.20-5.50) X10*6/uL Hgb 12.9 (12.0-16.0) g/dl Hct 40.7 (37.0-47.0) % MCV 84.3 (80.0-98.0) fL MCH 26.7 L (27.0-33.0) pg MCHC 31.7 (31.0-35.0) g/dl RDW 13.5 (11.0-16.0) % Plt Count 246 (160-400) X10*3/uL MPV 10.4 (9.4-12.3) fL Immature Gran % (Auto) 0.4 (0.0-0.4) % Neut % (Auto) 70.5 (45-73) % Lymph % (Auto) 16.9 L (20-40) % [place] % (Auto) 8.2 (2-11) % Eos % (Auto) 3.0 (0-4) % Baso % (Auto) 1.0 (0-2) % Lymph # (Auto) 1.2 (1.2-4.9) X10*3/uL [place] # (Auto) 0.6 (0.1-1.2) X10*3/uL Eos # (Auto) 0.2 (0.0-0.4) X10*3/uL Baso # (Auto) 0.1 (0.0-0.2) X10*3/uL Abs Immat Gran (auto) 0.03 (0.00-0.03) X10*3/uL Absolute Neuts (auto) 5.0 (2.0-8.3) x10*3/uL Absolute Nucleated RBC 0.000 (0.0-0.012) X10*3/uL Nucleated RBC % (auto) 0.0 (0.0-0.2) /100WBC Sodium 141 (135-145) mmol/L Potassium 3.5 (3.3-5.1) mmol/L Chloride 107 (96-108) mmol/L Carbon Dioxide 27 (22-29) mmol/L Anion Gap 11 L (12-20) BUN 21 H (9-16) mg/dL Creatinine 0.76 (0.5-1.4) mg/dL Estim Creat Clear Calc 59.8 Estimated GFR > 60 Random Glucose 96 (60-115) mg/dL Calcium 9.6 (8.4-10.2) mg/dL Total Bilirubin 0.3 (0.0-1.0) mg/dL AST 17 (5-31) U/L ALT 14 (0-31) U/L Alkaline Phosphatase 140 H (39-117) U/L B-Natriuretic Peptide 45 (<100) pg/mL Total Protein 7.8 (6.5-8.0) g/dL Albumin 4.2 (3.5-5.0) g/dL Independent Interpretation I performed an independent interpretation of an: Plain X-Ray and Ultrasound Interpretation: X-ray of left ankle with small calcaneal spur, agree with radiologist's interpretation. Ultrasound left lower extremity without clot, agree with radiologist's interpretation. Radiology Impression Discussion of test interpretation with radiology: I have reviewed the radiologist's reading. Radiologist Impression: EXAMINATION: US VENOUS ULTRASOUND WITH DOPPLER LOWER EXTREMITY, LEFT CLINICAL INFORMATION: Pain. COMPARISON: Right lower extremity ultrasound 08/14/2023. TECHNIQUE: Ultrasound of the deep veins is performed from the hip to the calf with compression sonography and color and pulse Doppler assessment. Spectral analysis with color-flow imaging is performed. FINDINGS: There is normal venous compression and respiratory variation and augmented flow. The visualized common femoral vein, superficial femoral vein, profunda femoral vein, popliteal vein, and the trifurcation region shows no evidence of deep venous thrombosis. There is no significant popliteal fossa cyst. If the patient's symptoms persist, followup ultrasound in 5 days 7 days might be of value to exclude proximal propagation from a non-visualized calf vein. US/US venous duplex LE LT IMPRESSION: No DVT demonstrated in the left lower extremity. EXAMINATION: XR FOOT, LEFT CLINICAL INFORMATION: pt states left foot and ankle pain, unable to weightbear / no trauma COMPARISON: None available. TECHNIQUE: AP, lateral, and mortise views of the left ankle. AP, lateral, and oblique views of the left foot. FINDINGS: ANKLE No fracture. Alignment is anatomic. No erosions. Joint spaces are maintained. Significant soft tissue edema of the distal leg and ankle. FOOT No fracture. Alignment is anatomic. Joint spaces are maintained. Small calcaneal spur is unchanged. Small spur in the anterior proximal navicular bone. XR/XR foot LT min 3V IMPRESSION: 1. No acute fracture or dislocation. 2. Significant soft tissue edema of the distal leg and ankle. 3. Small calcaneal spur. Independent Historian Clinical information obtained from an independent historian. History obtained from or confirmed by: Spouse () External Record Review External record reviewed: Inpatient record, Office record, Outpatient record, Prior outpatient labs, Prior outpatient radiology, Primary care record and Outside ED record Prescription Management I considered prescription management with: Pain Medication Social Determinants Patient?s care significantly limited by Social Determinants of Health including: Other Social Determinant of Health Critical Care Time Critical Care Time Critical Care Time: No Discharge Plan Discharge Clinical Impression: Plantar fasciitis of left foot, Venous (peripheral) insufficiency Patient Disposition: Home, Self-Care Instructions: Plantar Fasciitis (ED), Peripheral Vascular Disease (ED), Plantar Fasciitis Exercises (ED), Venous Insufficiency (DC) Additional Instructions: Your labs today are reassuring. The x-ray of your left foot does not demonstrate fracture. The ultrasound of your left leg does not demonstrate clot. Your physical exam is consistent with plantar fasciitis which as discussed, is inflammation of the tissue of the bottom of your foot. This can worsen with walking. You may take Tylenol ibuprofen for pain/discomfort. You may also use a frozen water bottle to roll under your foot to help with pain. You also likely have what we call chronic venous insufficiency, where blood can pool at the bottom of her legs. Treatment for this is elevating your legs to help with swelling. You may also wear compression stockings to help with blood flow. These have been sent to your pharmacy. Follow-up with your primary care provider. Return with new or worsening symptoms. In the case of an emergency call 911. Prescriptions: New (DME) compression panty, 1x-2x Misc See Rx Instructions .Route Qty: 1 0RF Rx Instructions: As directed No Action albuterol sulfate 90 mcg/actuation HFA aerosol inhaler 1 inh inhalation QID PRN (Reason: shortness of breath or wheezing) Qty: 8.5 0RF omeprazole 20 mg capsule,delayed release(DR/EC) 20 mg PO DAILY Qty: 14 0RF metoprolol succinate 50 mg tablet extended release 24 hr 50 mg PO DAILY hydrochlorothiazide 50 mg tablet 50 mg PO DAILY calcium carbonate-vitamin D3 600 mg-10 mcg (400 unit) tablet 2 tab PO DAILY Referrals: Destini Gutierrez PA-C [Primary Care Provider] - Interventions: ED Discharge Assessment Last Done: 03/05/24 19:58 Discharge Date/Time: 03/05/24 19:30 Print Language: Belarusian
[2024-03-05 14:46] LABS: MANUAL DIFF FLAG NO
[2024-03-05 14:55] LABS: Basophils Absolute Auto 0.1 X10*3/uL (0.0-0.2); Eosinophils Absolute Auto 0.2 X10*3/uL (0.0-0.4); Hematocrit 40.7 % (37.0-47.0); Hemoglobin 12.9 g/dl (12.0-16.0); Imm Gran Abs Auto 0.03 X10*3/uL (0.00-0.03); Imm Gran Pct Auto 0.4 % (0.0-0.4); Lymphocytes Absolute Auto 1.2 X10*3/uL (1.2-4.9); Lymphocytes Percent Auto 16.9 % (20-40); Mean Corpuscular HGB Conc 31.7 g/dl (31.0-35.0); Mean Corpuscular Hemoglobin 26.7 pg (27.0-33.0); Mean Corpuscular Volume 84.3 fL (80.0-98.0); Mean Platelet Volume 10.4 fL (9.4-12.3); Monocytes Absolute Auto 0.6 X10*3/uL (0.1-1.2); Monocytes Percent Auto 8.2 % (2-11); Neutrophils Percent Auto 70.5 % (45-73); Platelet Count 246 X10*3/uL (160-400); Red Blood Count 4.83 X10*6/uL (4.20-5.50); Red Cell Distribution Width 13.5 % (11.0-16.0); White Blood Count 7.1 X10*3/uL (4.8-10.8)
[2024-03-05 15:02] LABS: Alanine Aminotransferase 14 U/L (0-31); Albumin Level 4.2 g/dL (3.5-5.0); Alkaline Phosphatase 140 U/L (39-117); Anion Gap 11 (12-20); Aspartate Amino Transferase 17 U/L (5-31); Bilirubin Total 0.3 mg/dL (0.0-1.0); Blood Urea Nitrogen 21 mg/dL (9-16); Calcium 9.6 mg/dL (8.4-10.2); Carbon Dioxide 27 mmol/L (22-29); Chloride 107 mmol/L (96-108); Creatinine Clr Calc Pharmacy 59.8; Estimated Glomerular Filt Rate > 60; Glucose Random 96 mg/dL (60-115); Potassium 3.5 mmol/L (3.3-5.1); Sodium 141 mmol/L (135-145); Total Protein 7.8 g/dL (6.5-8.0)
[2024-03-05 15:08] LABS: B Type Natriuretic Peptide 45 pg/mL (<100)
--- NOTE | 2024-03-05 19:57 | PC.NURSE ---
pt discharged by provider and pt has already left, no repeat vitals taken due to provider was not aware.
[2024-03-05 19:58] VITALS: BP 155/65; PULSE 62; RESP 18; TEMP 36.3; O2SAT 97
== END 2024-03-05 19:30 | disposition home or self-care (01) ==
PROVIDERS: Physician Assistant Medical; Emergency Provider Emergency Medicine; PCP Physician Assistant
DX: M72.2 Plantar fascial fibromatosis (principal); I87.2 Venous insufficiency (chronic) (peripheral); R60.0 Localized edema; M25.572 Pain in left ankle and joints of left foot; Z79.899 Other long term (current) drug therapy
CPT/HCPCS: 36415; 73610; 73630; 80053; 83880; 85025; 93971; 99282; 99284

== ENCOUNTER 2024-04-23 12:10 | Emergency (ER) | payer OTHER, SELFPAY ==
--- NOTE | ~2024-04-23 | XR_ITS ---
EXAMINATION: XR LUMBOSACRAL SPINE CLINICAL INFORMATION: Increasing pain. Difficulty ambulating. COMPARISON: Radiograph lumbar spine 12/03/2022. TECHNIQUE: Three views of the lumbosacral spine. FINDINGS: Stable grade 1 anterolisthesis at L4-L5. No evidence of acute compression deformity or traumatic subluxation. Stable moderate multilevel intervertebral disc height loss and facet arthropathy, more pronounced in the lower lumbar spine where there is associated neural foraminal encroachment. Similar degenerative sclerosis and bony productive changes in the pubic symphysis. SI joints are symmetric. No significant paraspinal soft tissue abnormalities. XR/XR lumbar spine 2-3V IMPRESSION: 1. No acute compression deformity or traumatic subluxation. 2. Stable grade 1 anterolisthesis of L4 on L5. 3. Unchanged multilevel spondylosis more pronounced in the lower lumbar spine were there is associated neural foraminal encroachment. If the patient has persistent pain or a diminished ability to bear weight on short-term follow-up, consider obtaining an MRI of the lumbar spine to exclude a radiographically occult fracture.
[2024-04-23 12:26] VITALS: BP 174/64; PULSE 63; RESP 16; TEMP 36.6; O2SAT 98; BMI 35.1
--- NOTE | 2024-04-23 12:26 | ED_ITS ---
HPI - General Adult General Chief complaint: General Medical Stated complaint: Back pain/pelvic pain Time Seen by Provider: 04/23/24 15:51 Source: patient Mode of arrival: ambulatory Limitations: no limitations History of Present Illness ED Provider: Dr. Nimesh Lundberg HPI narrative: 73-year-old female with a history of hypertension, asthma, osteoporosis and back pain who presents emergency department for evaluation of lower back pain, difficulty walking and pelvic pain. The patient states that on Sunday (5 days prior to evaluation) she developed gradual onset of lower back pain. She does not recount any injury. She states the pain got progressively worse and 2 or 3 days prior to evaluation the pain got worse and was 9/10. She states that her pain is currently 6/10. The pain is a constant, pressure like pain which is improved if she sits and lies still but is worse if she tries to get up and walk. Patient states that she took a leave P for pain but she only took his medication once. She states that she feels like her legs are weak secondary to her pain and she has had difficulty walking. She was able to walk with a cane and with a walker. She denied fever, chills, nausea, vomiting, frequency, urgency, dysuria, loss of bowel or bladder control. She states the pain does radiate to her pelvic area and points to her pubic bone when asked to localize the pain. She states she did take naproxen with some relief of her pain. Related Data Home Medications ?Medication ?Instructions ?Recorded ?Confirmed calcium carbonate 600 mg-vitamin 2 tab PO DAILY 10/08/23 10/08/23 D3 10 mcg (400 unit) tablet hydrochlorothiazide 50 mg tablet 50 mg PO DAILY 10/08/23 10/08/23 metoprolol succinate 50 mg 50 mg PO DAILY 10/08/23 10/08/23 tablet,extended release 24 hr Previous Rx's ?Medication ?Instructions ?Recorded albuterol sulfate 90 mcg/actuation 1 inh inhalation QID PRN shortness 09/25/22 aerosol inhaler of breath or wheezing #8.5 grams omeprazole 20 mg capsule,delayed 20 mg PO DAILY #14 caps 11/21/22 release compression panty, 1x-2x #1 ea 03/05/24 Allergies Allergy/AdvReac Type Severity Reaction Status Date / Time amoxicillin Allergy Intermediate Hives Verified 04/23/24 12:29 Penicillins [PCN] Allergy Intermediate Hives Verified 04/23/24 12:29 iodine AdvReac Blister Verified 04/23/24 12:29 Review of Systems 2 Review of Systems: Yes all other systems are reviewed and are negative [facility] Past Medical History Medical History Asthma Back pain Fluid retention in legs Hypertension Osteoporosis Surgical History H/O colonoscopy Social History Social History Alcohol intake: never Patient Tobacco Use Status: Never used Tobacco Advance Directives: Yes Advance Directives on File: Yes Advance Directives Date on File: 09/27/21 Physical Exam ED Vital Signs: Vital Signs - 24 hr 04/23/24 12:26 04/23/24 15:44 Temperature 97.8 F 98.1 F Pulse Rate 63 54 Respiratory Rate 16 17 Blood Pressure 174/64 H 170/80 H Pulse Oximetry 98 98 Oxygen Delivery Method Room Air Room Air BMI result Body Mass Index 35.1 Patient's vital signs revealed an elevated blood pressure of 174/64. Exam: General: Awake, alert in no distress Head: Normocephalic, atraumatic EENT: PERRL, Lids normal, sclera normal, conjunctiva normal, nose normal , ears normal, throat without erythema or exudates Neck: Supple, no adenopathy Lung: breath sounds symmetric, no wheezing, rales or rhonchi Chest: symmetric movement, nontender Heart: regular rate and rhythm, normal S1, S2 no murmurs or rubs Abdomen: soft, non-tender, nondistended, normal bowel sounds Back: Patient has tenderness with palpation of L 4, L5 and S1 vertebrae with no tenderness palpation over the paraspinal muscles in the lumbar sacral area no spasm of these muscles. Extremities: no deformities, moves all extremities symmetrically Neuro: Awake, alert, oriented, normal speech, cranial nerves intact, moves all extremities symmetrically Psych: Pleasant, cooperative Course Course Course Narrative: This is a rapid medical exam performed by Clinton Vargas NP: Additional HPI, ROS, PE not included below will be deferred to primary provider. Patient is a 73-year-old female presenting to the ED with complaint of back pain which began over the weekend, by Sunday having difficulty walking. Also complains of suprapubic pain. Plan: UA, labs, xray Medical Decision Making Medical Decision Making [facility] Narrative: 73-year-old female with a history of hypertension, asthma, osteoporosis, back pain who presents emergency department for evaluation of 5 days of lower back pain, pain started gradually and got progressively worse, she has no injury. She also complains of pelvic pain in the area of the symphysis pubis. She had no concerning systemic symptoms, loss of bowel or bladder control. Vital signs did reveal an elevated blood pressure otherwise unremarkable. Physical examination did reveal tenderness with palpation of the or lumbar vertebrae with no significant tenderness palpation over the paraspinal muscles. Her neurologic exam was nonfocal. Differential diagnosis: ?Includes but is not limited to vertebral fracture, compression fracture, degenerative disc disease, degenerative joint disease, electrolyte abnormalities, anemia Following evaluation was ordered: CBC, CMP, urinalysis, lumbar spine x-rays Course: My independent interpretation patient's laboratory evaluation is as follows: CBC was normal. CMP was normal except for an elevated alk-phos of 141-this is chronic. Patient's my vertebrae x-rays revealed no acute compression fractures or acute fractures. Given the patient's tenderness over her lower vertebral vertebrae I suspect that she may have a small compression fracture not seen on the x-rays as the cause of her pain and I did discuss this with her. Patient was advised to take naproxen and Tylenol for pain. She was advised to use ice on her lower back for 15 minutes is. She was given printed and verbal instructions and discharged home Admission/Observation Consideration of admission/observation: Escalation of care including admission/observation considered Lab Data [facility] Lab Attestation statement: I reviewed the patient's lab results. 04/23/24 12:38 04/23/24 12:38 Labs: Lab Results 04/23/24 Range/Units 12:38 WBC 7.4 (4.8-10.8) X10*3/uL RBC 4.66 (4.20-5.50) X10*6/uL Hgb 12.6 (12.0-16.0) g/dl Hct 39.5 (37.0-47.0) % MCV 84.8 (80.0-98.0) fL MCH 27.0 (27.0-33.0) pg MCHC 31.9 (31.0-35.0) g/dl RDW 13.6 (11.0-16.0) % Plt Count 245 (160-400) X10*3/uL MPV 10.1 (9.4-12.3) fL Immature Gran % (Auto) 0.4 (0.0-0.4) % Neut % (Auto) 70.5 (45-73) % Lymph % (Auto) 18.1 L (20-40) % [place] % (Auto) 8.2 (2-11) % Eos % (Auto) 1.8 (0-4) % Baso % (Auto) 1.0 (0-2) % Lymph # (Auto) 1.3 (1.2-4.9) X10*3/uL [place] # (Auto) 0.6 (0.1-1.2) X10*3/uL Eos # (Auto) 0.1 (0.0-0.4) X10*3/uL Baso # (Auto) 0.1 (0.0-0.2) X10*3/uL Abs Immat Gran (auto) 0.03 (0.00-0.03) X10*3/uL Absolute Neuts (auto) 5.2 (2.0-8.3) x10*3/uL Absolute Nucleated RBC 0.000 (0.0-0.012) X10*3/uL Nucleated RBC % (auto) 0.0 (0.0-0.2) /100WBC Sodium 142 (135-145) mmol/L Potassium 4.0 (3.3-5.1) mmol/L Chloride 110 H (96-108) mmol/L Carbon Dioxide 22 (22-29) mmol/L Anion Gap 14 (12-20) BUN 19 H (9-16) mg/dL Creatinine 0.75 (0.5-1.4) mg/dL Estim Creat Clear Calc 60.6 Estimated GFR > 60 Random Glucose 100 (60-115) mg/dL Calcium 9.9 (8.4-10.2) mg/dL Total Bilirubin 0.4 (0.0-1.0) mg/dL AST 17 (5-31) U/L ALT 13 (0-31) U/L Alkaline Phosphatase 141 H (39-117) U/L Total Protein 7.6 (6.5-8.0) g/dL Albumin 4.2 (3.5-5.0) g/dL Radiology Impression Discussion of test interpretation with radiology: I have reviewed the radiologist's reading. Radiologist Impression: XR lumbar spine 2-3V IMPRESSION: 1. No acute compression deformity or traumatic subluxation. 2. Stable grade 1 anterolisthesis of L4 on L5. 3. Unchanged multilevel spondylosis more pronounced in the lower lumbar spine were there is associated neural foraminal encroachment. If the patient has persistent pain or a diminished ability to bear weight on short-term follow-up, consider obtaining an MRI of the lumbar spine to exclude a radiographically occult fracture. Dictated By: Alicia Chery Chronic Conditions Patient?s care impacted by: Hypertension Discharge Plan Discharge Clinical Impression: Pain in vertebral column Patient Disposition: Home, Self-Care Additional Instructions: Your blood work today was normal. We did not get a urine sample on you but you have no signs or symptoms of a urinary tract infection. The x-rays of your lower back are consistent with arthritis and some shifting of the bones of your lower back which is normal for your age. On your exam you are very tender over the back bones (vertebrae) at the base of your spine and I suspect that you may have slight compression fracture versus flare-up of arthritis causing your pain. Take a leave (Naprosyn) 220 mg, 1 every 12 hours for 5 days, this is an anti- inflammatory pain medication and should help with your pain Also take extra-strength Tylenol (acetaminophen) 500 mg 2 pills every 6 hours (3 times a day) as needed for pain Apply ice for 10 minutes 4 times a day to your lower back to help reduce the swelling. Do this for 3-4 days then after 3-4 days use a heating pad on low for 15 minute help reduce the pain Please return to the emergency department if you developed fever, chills, painful with peeing, numbness, weakness, loss of control of your bowel or bladder or if you develop any new symptoms that are concerning to you Follow-up with your doctor in 2 days. Please return to the emergency department if your symptoms get worse or if you develop any symptoms that are concerning to you. Prescriptions: No Action albuterol sulfate 90 mcg/actuation HFA aerosol inhaler 1 inh inhalation QID PRN (Reason: shortness of breath or wheezing) Qty: 8.5 0RF omeprazole 20 mg capsule,delayed release(DR/EC) 20 mg PO DAILY Qty: 14 0RF (DME) compression panty, 1x-2x Misc See Rx Instructions .Route Qty: 1 0RF Rx Instructions: As directed metoprolol succinate 50 mg tablet extended release 24 hr 50 mg PO DAILY hydrochlorothiazide 50 mg tablet 50 mg PO DAILY calcium carbonate-vitamin D3 600 mg-10 mcg (400 unit) tablet 2 tab PO DAILY Discharge Date/Time: 04/23/24 16:31 Print Language: Turkish
[2024-04-23 12:42] LABS: MANUAL DIFF FLAG NO
[2024-04-23 12:46] LABS: Basophils Absolute Auto 0.1 X10*3/uL (0.0-0.2); Eosinophils Absolute Auto 0.1 X10*3/uL (0.0-0.4); Eosinophils Percent Auto 1.8 % (0-4); Hematocrit 39.5 % (37.0-47.0); Hemoglobin 12.6 g/dl (12.0-16.0); Imm Gran Abs Auto 0.03 X10*3/uL (0.00-0.03); Imm Gran Pct Auto 0.4 % (0.0-0.4); Lymphocytes Absolute Auto 1.3 X10*3/uL (1.2-4.9); Lymphocytes Percent Auto 18.1 % (20-40); Mean Corpuscular HGB Conc 31.9 g/dl (31.0-35.0); Mean Corpuscular Volume 84.8 fL (80.0-98.0); Mean Platelet Volume 10.1 fL (9.4-12.3); Monocytes Absolute Auto 0.6 X10*3/uL (0.1-1.2); Monocytes Percent Auto 8.2 % (2-11); Neutrophils Absolute Auto 5.2 x10*3/uL (2.0-8.3); Neutrophils Percent Auto 70.5 % (45-73); Platelet Count 245 X10*3/uL (160-400); Red Blood Count 4.66 X10*6/uL (4.20-5.50); Red Cell Distribution Width 13.6 % (11.0-16.0); White Blood Count 7.4 X10*3/uL (4.8-10.8)
[2024-04-23 13:00] LABS: Alanine Aminotransferase 13 U/L (0-31); Albumin Level 4.2 g/dL (3.5-5.0); Alkaline Phosphatase 141 U/L (39-117); Anion Gap 14 (12-20); Aspartate Amino Transferase 17 U/L (5-31); Bilirubin Total 0.4 mg/dL (0.0-1.0); Blood Urea Nitrogen 19 mg/dL (9-16); Calcium 9.9 mg/dL (8.4-10.2); Carbon Dioxide 22 mmol/L (22-29); Chloride 110 mmol/L (96-108); Creatinine Clr Calc Pharmacy 60.6; Estimated Glomerular Filt Rate > 60; Glucose Random 100 mg/dL (60-115); Sodium 142 mmol/L (135-145); Total Protein 7.6 g/dL (6.5-8.0)
[2024-04-23 15:44] VITALS: BP 170/80; PULSE 54; RESP 17; TEMP 36.7; O2SAT 98
== END 2024-04-23 16:31 | disposition home or self-care (01) ==
PROVIDERS: Registered Nurse Emergency; Emergency Provider Emergency Medicine Emergency Medical Services; PCP Physician Assistant
DX: M54.50 Low back pain, unspecified (principal); R10.2 Pelvic and perineal pain; Z79.899 Other long term (current) drug therapy
CPT/HCPCS: 36415; 72100; 80053; 85025; 99283

== ENCOUNTER 2024-09-19 14:35 | Emergency (ER) | payer OTHER, SELFPAY ==
--- NOTE | ~2024-09-19 | XR_ITS ---
EXAMINATION: XR LUMBOSACRAL SPINE CLINICAL INFORMATION: Right low back pain. COMPARISON: 04/23/2024. TECHNIQUE: Three views of the lumbosacral spine. FINDINGS: There is a mild right convex thoracolumbar scoliosis apex at T12-L1. There is a normal lumbar lordosis. 3 mm anterolisthesis L4 on L5 and retrolisthesis L5 on S1, degenerative. There are no suspicious bony anomalies, fractures, or compression deformities. Moderate diffuse disc space narrowing is present spanning L1-L5. Sclerotic hypertrophic degenerative facet changes are present L4-5 and L5-S1. Soft tissues demonstrate mild aortic calcification. There is a calcified gallstone in the right upper quadrant. There are degenerative changes in both SI joints right greater than left, and mild in both hip joints. XR/XR lumbar spine 2-3V IMPRESSION: 1. No acute bony abnormalities. 2. Moderate lumbar spondylosis. Facet arthrosis most significant at L4-5 and L5-S1. 3. Cholelithiasis. Electronically signed by: Christopher Blancas MD 09/19/2024 04:03 PM EDT
[2024-09-19 14:39] VITALS: BP 142/62; PULSE 73; RESP 18; TEMP 37; O2SAT 98; BMI 31.7
--- NOTE | 2024-09-19 18:34 | ED_ITS ---
HPI - General Adult General Chief complaint: Back Pain/Injury Stated complaint: back pain Time Seen by Provider: 09/19/24 18:09 Source: patient Mode of arrival: ambulatory Limitations: no limitations History of Present Illness ED Provider: Niesha Hamm PA-C HPI narrative: Patient is a 73 year old assigned female at with no reported medical history presenting to the emergency department today with right sided low back pain. Patient states that she has been having right lower back pain that radiates to her right buttock. Patient denies any dizziness, lightheadedness, abdominal pain, nausea, vomiting, fever, chills, blurry vision, double vision, loss of vision, chest pain, difficulty breathing, shortness of breath, night sweats, pain with urination, increased urinary frequency, increased urinary urgency, blood in her urine or stool, syncope or a near syncopal episode, recent trauma or falls, bowel incontinence, bladder incontinence, or any other complaints at this time. Onset (ago): day(s) (3) Location: back Relieving factors: none Exacerbating factors: none Associated symptoms: denies other symptoms Treatments prior to arrival: none Related Data Home Medications ?Medication ?Instructions ?Recorded ?Confirmed calcium carbonate 600 mg-vitamin 2 tab PO DAILY 10/08/23 10/08/23 D3 10 mcg (400 unit) tablet hydrochlorothiazide 50 mg tablet 50 mg PO DAILY 10/08/23 10/08/23 metoprolol succinate 50 mg 50 mg PO DAILY 10/08/23 10/08/23 tablet,extended release 24 hr Previous Rx's ?Medication ?Instructions ?Recorded albuterol sulfate 90 mcg/actuation 1 inh inhalation QID PRN shortness 09/25/22 aerosol inhaler of breath or wheezing #8.5 grams omeprazole 20 mg capsule,delayed 20 mg PO DAILY #14 caps 11/21/22 release compression panty, 1x-2x #1 ea 03/05/24 Allergies Allergy/AdvReac Type Severity Reaction Status Date / Time amoxicillin Allergy Intermediate Hives Verified 09/19/24 14:41 Penicillins [PCN] Allergy Intermediate Hives Verified 09/19/24 14:41 iodine AdvReac Blister Verified 09/19/24 14:41 Review of Systems Constitutional: Constitutional: Reports no additional constitutional complaints, Denies chills, Denies fever(s) and Denies night sweats Eyes: Eyes: Reports no additional eye complaints, Denies blurry vision, Denies change in vision, Denies diplopia, Denies eye discharge, Denies loss of vision and Denies eye pain ENT: Denies dizziness Cardiovascular: Cardiovascular: Reports no additional cardiovascular complai nts, Denies chest pain, Denies lightheadedness, Denies Loss of Consciousness and Denies dyspnea Respiratory: Respiratory: Reports no additional respiratory complaints and Denies dyspnea Gastrointestinal: Gastrointestinal: Reports no additional gastrointestinal complaints, Denies abdominal pain, Denies melena, Denies hematochezia, Denies change in bowel habits and Denies change in stool character Genitourinary: Genitourinary: Denies hematuria, Denies urinary frequency, Denies dysuria, Denies urinary incontinence, Denies urinary hesitancy and Denies urinary urgency Musculoskeletal: Musculoskeletal: Reports no additional musculoskeletal complaints, Denies numbness and Denies tingling Comments: right sided low back pain Neurologic: Denies dizziness, Denies loss of vision, Denies numbness and Denies tingling Psychiatric: Psychiatric: Reports no additional psychiatric complaints Endocrine: Endocrine: Reports no additional endocrine complaints Hematologic/Lymphatic: Hematologic/Lymphatic: Reports no additional hematologic/lymphatic complaints Allergic/Immunologic: Allergic/Immunologic: Reports no additional allergic/immunologic complaints [facility] Past Medical History Attestation statement: The following information was validated with the patient. Source: old records reviewed and nursing notes reviewed Medical History Asthma Back pain Fluid retention in legs Hypertension Osteoporosis Surgical History H/O colonoscopy Social History Social History Alcohol intake: never Patient Tobacco Use Status: Never used Tobacco Advance Directives: Yes Advance Directives on File: Yes Advance Directives Date on File: 09/27/21 Physical Exam ED Vital Signs: Vital Signs - 24 hr 09/19/24 14:39 09/19/24 19:00 09/19/24 19:04 Temperature 98.6 F 98.9 F 98.9 F Pulse Rate 73 50 50 Respiratory Rate 18 16 16 Blood Pressure 142/62 H 133/54 L 133/54 L Pulse Oximetry 98 99 99 Oxygen Delivery Method Room Air Room Air Room Air BMI result Body Mass Index 31.7 Const General: cooperative, no acute distress, alert and awake Nutritional Appearance: well nourished Orientation/consciousness: patient oriented x3 Limitations: no limitations HENMT Head: Yes normal to inspection and Yes atraumatic Ears: hearing grossly normal bilaterally and external ears normal General nose exam: Normal external nose present, no nasal discharge noted and no epistaxis Face and sinus: Yes normal facial exam, No abrasion and No laceration Mouth: Normal oral and palatal mucosa present, no drooling and no muffled voice Eyes General: appearance normal, both eyes and all related structures Periorbital: periorbital findings normal Eyelids: Yes eyelids normal Conjunctivae: conjunctivae normal Pupils: Equal, round and reactive pupils present EOM: EOMs intact bilaterally Neck Neck: Yes normal visual inspection, Yes full ROM and Yes no lymphadenopathy Chest Chest palpation & inspection: normal inspection of the chest Resp Effort & Inspection: normal respiratory effort and able to speak in complete sentences GI Inspection: Yes normal to inspection General: Yes no CVA tenderness Back/Spine/Pelvis Back: no CVA tenderness Cervical Spine: normal cervical lordosis and cervical ROM normal Thoracic/Lumbar Spine: thoracic and lumbar spine normal to inspection Neuro General: patient oriented x3 and moves all extremities Cranial nerves: Yes Equal, round and reactive pupils present Cognition (Neuro): normal cognition Extrem General: Yes normal to inspection, Yes full ROM and Yes capillary refill normal Psych Appearance: grossly normal Mental Status: mental status grossly normal Affect: normal affect Attitude: cooperative Thought process: Normal thought process present Thought content: Normal thought content present Insight: Good insight present (Psych) Medications Administered Discontinued Medications Generic Name Dose Route Start Last Admin Trade Name Opal PRN Reason Stop Dose Admin Ketorolac Tromethamine 15 mg 09/19/24 18:34 09/19/24 18:57 Ketorolac Tromethamine 15 Mg/Ml Vial IM 09/19/24 18:35 15 mg ONCE ONE Administration Medical Decision Making Medical Decision Making [facility] Narrative: Patient is a 73 year old assigned female at with no reported medical history presenting to the emergency department today with right sided low back pain. Patient's physical exam was unremarkable. Patient's lumbar x-ray showed no acute process. I explained my physical exam findings as well as all test results to the patient. I answered all questions asked by the patient. I stressed the importance of the patient taking her medication as directed (either prescribed or as the over the counter packaging recommends). I stressed the importance of the patient following up with her primary care provider. I stressed the importance of the patient returning to the emergency department immediately if her symptoms were to worsen or if she were to develop any dizziness, shortness of breath, difficulty breathing, chest pain, blurry vision, loss of vision, nausea, vomiting, abdominal pain, fever, chills, back pain, or any other complaints. Patient verbalized agreement and understanding with this treatment plan and discharge. Differential Diagnosis Differential Diagnoses: The differential diagnosis associated with the presentation includes Low back pain Osteoarthritis Admission/Observation Consideration of admission/observation: Escalation of care including admission/observation considered Patient would have been admitted to the hospital had her work up had any findings where hospital admission was appropriate and her clinical presentation warranted hospital admission. Independent Interpretation I performed an independent interpretation of an: Plain X-Ray Interpretation: My interpretation is in agreement with the radiologist's impression of this imaging study. EXAMINATION: XR LUMBOSACRAL SPINE CLINICAL INFORMATION: Right low back pain. COMPARISON: 04/23/2024. TECHNIQUE: Three views of the lumbosacral spine. FINDINGS: There is a mild right convex thoracolumbar scoliosis apex at T12-L1. There is a normal lumbar lordosis. 3 mm anterolisthesis L4 on L5 and retrolisthesis L5 on S1, degenerative. There are no suspicious bony anomalies, fractures, or compression deformities. Moderate diffuse disc space narrowing is present spanning L1-L5.Sclerotic hypertrophic degenerative facet changes are present L4-5 and L5-S1. Soft tissues demonstrate mild aortic calcification. There is a calcified gallstone in the right upper quadrant.There are degenerative changes in both SI joints right greater than left, and mild in both hip joints. XR/XR lumbar spine 2-3V IMPRESSION: 1. No acute bony abnormalities. 2. Moderate lumbar spondylosis. Facet arthrosis most significant at L4-5 and L5- S1. 3. Cholelithiasis. Electronically signed by: Christopher Blancas MD 09/19/2024 04:03 PM EDT RP Dictated By: Christopher Blancas MD Signed By: Electronically signed by Christopher Blancas MD 09/19/24 1604 Radiology Impression Discussion of test interpretation with radiology: I have reviewed the rad iologist's reading. Discharge Plan Discharge Clinical Impression: Osteoarthritis, Back pain Patient Disposition: Home, Self-Care Instructions: Osteoarthritis (DC), Back Pain (ED) Additional Instructions: Follow up with your primary care provider. Return to the emergency department immediately if your symptoms worsen or if you develop any dizziness, shortness of breath, difficulty breathing, chest pain, blurry vision, loss of vision, nausea, vomiting, abdominal pain, fever, chills, back pain, or any other complaints. Prescriptions: No Action albuterol sulfate 90 mcg/actuation HFA aerosol inhaler 1 inh inhalation QID PRN (Reason: shortness of breath or wheezing) Qty: 8.5 0RF omeprazole 20 mg capsule,delayed release(DR/EC) 20 mg PO DAILY Qty: 14 0RF (DME) compression panty, 1x-2x Misc See Rx Instructions .Route Qty: 1 0RF Rx Instructions: As directed metoprolol succinate 50 mg tablet extended release 24 hr 50 mg PO DAILY hydrochlorothiazide 50 mg tablet 50 mg PO DAILY calcium carbonate-vitamin D3 600 mg-10 mcg (400 unit) tablet 2 tab PO DAILY Referrals: Destini Gutierrez PA-C [Primary Care Provider] - Interventions: ED Discharge Assessment Last Done: 09/19/24 19:04 Discharge Date/Time: 09/19/24 19:04 Print Language: Croatian
[2024-09-19] MEDS: Ketorolac Tromethamine 15 MG/ML VIAL IM (18:57)
[2024-09-19 19:00] VITALS: BP 133/54; PULSE 50; RESP 16; TEMP 37.2; O2SAT 99
[2024-09-19 19:04] VITALS: BP 133/54; PULSE 50; RESP 16; TEMP 37.2; O2SAT 99
== END 2024-09-19 19:04 | disposition home or self-care (01) ==
PROVIDERS: Emergency Provider Emergency Medicine; PCP Physician Assistant
DX: M47.816 Spondylosis without myelopathy or radiculopathy, lumbar region (principal); Z79.899 Other long term (current) drug therapy
CPT/HCPCS: 72100; 96372; 99283; 99284; J1885

== ENCOUNTER → 2024-09-19 14:49 | Outpatient (BNV) | payer OTHER, SELFPAY | PROVIDERS: PCP Physician Assistant; Visit Provider Radiology Diagnostic Radiology | DX: M54.50 Low back pain, unspecified (principal) | CPT/HCPCS: 72100 ==

== ENCOUNTER 2025-02-03 11:36 | Emergency (ER) | payer OTHER, SELFPAY ==
--- NOTE | ~2025-02-03 | NM_ITS ---
CLINICAL HISTORY: elevated ddimer Nuclear medicine perfusion lung scan. Technique: After intravenous injection of 3 mCi technetium 99 MAA multiple gamma camera views were obtained. Findings: There is uniform uptake of isotope throughout both lungs with no focal peripheral wedge-shaped perfusion defects. Impression: Normal nuclear medicine perfusion lung scan. No signs of pulmonary embolus. This document has been electronically signed by: Lorenzo Shepherd MD on 02/03/2025 17:37:35
--- NOTE | ~2025-02-03 | XR_ITS ---
EXAMINATION: XR CHEST 1 VIEW HISTORY: cough COMPARISON: Comparison is made with the prior examination dated 06/30/2023. FINDINGS: A single PA view of the chest is submitted. The lungs are expanded and clear. There is no pleural effusion, pneumothorax, or pulmonary vascular congestion. The heart is normal in size. The aorta is tortuous and calcified. There is degenerative disc disease of the spine. XR/XR chest 1V IMPRESSION: No acute cardiopulmonary abnormality. Electronically signed by: Buzz Chaudhary MD 02/03/2025 12:21 PM EDT
[2025-02-03 11:38] VITALS: BP 183/59; PULSE 60; RESP 20; TEMP 36.2; O2SAT 99; BMI 36.6
--- NOTE | 2025-02-03 11:42 | ECG_ITS ---
Test Reason : cp Blood Pressure : */* mmHG Vent. Rate : 56 BPM Atrial Rate : 56 BPM P-R Int : 146 ms QRS Dur : 86 ms QT Int : 414 ms P-R-T Axes : 59 25 38 degrees QTcB Int : 399 ms Sinus bradycardia Otherwise normal ECG When compared with ECG of 30-Jun-2023 18:34, No significant change was found Referred By: Melanie Donnelly Electronically Signed By: Sony Lyles
--- NOTE | 2025-02-03 11:43 | ED_ITS ---
HPI - General Adult General Chief complaint: Upper Respiratory Symptoms Stated complaint: Difficulty breathing, swelling around eyes Time Seen by Provider: 02/03/25 13:36 Source: patient and RN notes reviewed Mode of arrival: ambulatory Limitations: no limitations History of Present Illness ED Provider: Tamika Magaña PA-C HPI narrative: This is a 74-year-old female, with a history of asthma and hypertension, who presents emergency department with complaints of dry cough, and shortness of breath that typically occurs at nighttime. Patient reports that yesterday she developed intermittent chest pain. She states that she currently does not have chest pain at this time. Patient has a history of asthma, states that she has been using her inhaler as needed. No recent surgeries, travels, or hospitalizations. No calf tenderness. No pedal edema. No history of blood clots. She also reports that over the last several days she has had eye crusting noted bilaterally. She has been using cortisone cream around her eyes. She states that this has not helped her with her symptoms. No other complaints or concerns at this time. MD complaint: Cough, shortness for breath Onset (ago): week(s) Radiation: non-radiation Quality: aching Pain Consistency: constant Relieving factors: none Exacerbating factors: none Associated symptoms: denies other symptoms Treatments prior to arrival: none Related Data Home Medications ?Medication ?Instructions ?Recorded ?Confirmed calcium 600 mg (as 2 tab PO DAILY 10/08/23 10/08/23 carbonate)-vitamin D3 10 mcg (400 unit) tablet hydrochlorothiazide 50 mg tablet 50 mg PO DAILY 10/08/23 10/08/23 metoprolol succinate 50 mg 50 mg PO DAILY 10/08/23 10/08/23 tablet,extended release 24 hr Previous Rx's ?Medication ?Instructions ?Recorded albuterol sulfate 90 mcg/actuation 1 inh inhalation QID PRN shortness 09/25/22 aerosol inhaler of breath or wheezing #8.5 grams omeprazole 20 mg capsule,delayed 20 mg PO DAILY #14 caps 11/21/22 release compression panty, 1x-2x #1 ea 03/05/24 azithromycin 250 mg tablet See Rx Instructions PO .COMPLEX #6 02/03/25 tabs erythromycin 5 mg/gram (0.5 %) eye 0.5 inch ophthalmic (eye) QID 7 02/03/25 ointment days #3.5 grams prednisone 20 mg tablet 20 mg PO DAILY 5 days #5 tabs 02/03/25 Allergies Allergy/AdvReac Type Severity Reaction Status Date / Time amoxicillin Allergy Intermediate Hives Verified 02/03/25 11:42 Penicillins [PCN] Allergy Intermediate Hives Verified 02/03/25 11:42 iodine AdvReac Blister Verified 02/03/25 11:42 Review of Systems 2 Review of Systems: Yes all other systems are reviewed and are negative Constitutional: Constitutional: Reports as per [facility] Past Medical History Medical History Asthma Back pain Fluid retention in legs Hypertension Osteoporosis Surgical History H/O colonoscopy Social History Social History Alcohol intake: never Patient Tobacco Use Status: Never used Tobacco Advance Directives: Yes Advance Directives on File: Yes Advance Directives Date on File: 09/27/21 Do you have a plan to hurt others: No Plan Physical Exam ED Vital Signs: Vital Signs - 24 hr 02/03/25 11:38 02/03/25 14:16 02/03/25 18:13 Temperature 97.2 F 98.1 F 97.8 F Pulse Rate 60 58 61 Respiratory Rate 20 16 20 Blood Pressure 183/59 H 152/69 H 188/89 H Pulse Oximetry 99 97 97 Oxygen Delivery Method Room Air Room Air Room Air 02/03/25 18:42 Temperature 97.8 F Pulse Rate 61 Respiratory Rate 20 Blood Pressure 188/89 H Pulse Oximetry 97 Oxygen Delivery Method Room Air BMI result Body Mass Index 36.6 Const General: cooperative, comfortable and no acute distress Orientation/consciousness: patient oriented x3 Limitations: no limitations [facility]: Yes normal to inspection, Yes normocephalic and Yes atraumatic Ears: hearing grossly normal bilaterally and TM's normal bilaterally General nose exam: Normal external nose present Face and sinus: Yes normal facial exam Mouth: Normal oral and palatal mucosa present, oropharynx normal and moist mucous membranes Throat: Yes posterior oropharynx normal Eyes Other: Conjunctiva is very mildly injected, resting noted surrounding, with slight dryness surrounding eyes, no obvious erythema or edema. General: appearance normal, both eyes and all related structures Eyelids: Yes eyelids normal Sclerae: sclerae normal Pupils: Equal, round and reactive pupils present EOM: EOMs intact bilaterally Neck Neck: Yes normal visual inspection, Yes full ROM and Yes no lymphadenopathy Lymphatic: no lymphadenopathy noted Chest Chest palpation & inspection: normal inspection of the chest Resp Effort & Inspection: normal respiratory effort and able to speak in complete sentences Auscultation: clear to auscultation bilaterally, no crackles, no rales, no rhonchi and no wheezes Cardio Rate: regular rate Rhythm: regular rhythm Heart sounds: S1 normal heart sound present and S2 normal heart sound present GI Other: Abdomen is soft, nontender, nondistended Inspection: Yes normal to inspection Skin General skin exam: no rashes or lesions noted Trauma: no lacerations or abrasions Wounds: no wounds Neuro General: patient oriented x3 and moves all extremities Cranial nerves: Yes Equal, round and reactive pupils present Extrem Other: No pitting edema noted bilaterally General: Yes normal to inspection Right upper extremity: normal to inspection Left upper extremity: normal to inspection Right lower extremity: normal to inspection Left lower extremity: normal to inspection Course Course Course Narrative: This is a rapid medical exam performed by Melanie Donnelly PA-C. The patient is a 74-year-old female presents with multiple complaints. Patient states she has been having chest pain shortness of breath and cough and cold symptoms for 2-3 weeks. Patient also states her eyelids are dry and itchy this is of unclear duration. We will be screening basic labs, troponin, EKG chest x-ray viral panel. The patient is hemodynamically stable and can return to the waiting room pending his full medical assessment. Reevaluation(s) Reevaluation #1: D-dimer is a borderline therefore V/Q scan was ordered as pt allergic to IV contrast. Time: 15:37 Reevaluation #2: V/Q scan is negative. Patient's symptoms viral in etiology. Discussed overall workup with patient. Patient may have allergic conjunctivitis versus bacterial. Will treat with erythromycin ointment, will also treat with course of prednisone to help with breathing as well as possible allergic process. Also discussed you starting on azithromycin as patient has been sick with URI symptoms for several weeks now. Advised to follow-up with your PCP. She understands and agrees with plan. Patient stable for discharge. Time: 17:46 Medical Decision Making Medical Decision Making [facility] Narrative: This is a 74-year-old female, with a history of asthma, who presents emergency department with multiple complaints. She reports that she has had cough, congestion, and intermittent shortness of breath. On arrival, patient mildly hypertensive at 183/59, all other vital signs within normal limits. Her blood pressure improved to 152/69 when I evaluated patient. Lungs are clear to auscultation bilaterally. She is speaking full sentences under no acute distress. No tenderness palpation along the anterior chest wall. She has had no recent travel, surgery, hospitalizations. Differential diagnoses include viral URI, sinusitis, COVID, flu, RSV, PE-unlikely, reactive airway disease, allergic rhinitis. She has had no vision changes. Differential Diagnosis Differential Diagnoses: The differential diagnosis associated with the presentation includes See above Admission/Observation Consideration of admission/observation: Escalation of care including admission/observation considered Lab Data [facility] Lab Attestation statement: I reviewed the patient's lab results. No leukocytosis, stable H&H, no significant electrolyte derangement, troponin x2 negative, negative viral swabs. D-dimer 243 02/03/25 12:08 02/03/25 12:08 Labs: Lab Results 02/03/25 02/03/25 Range/Units 12:08 14:45 WBC 7.3 (4.8-10.8) X10*3/uL RBC 4.61 (4.20-5.50) X10*6/uL Hgb 12.5 (12.0-16.0) g/dl Hct 37.6 (37.0-47.0) % MCV 81.6 (80.0-98.0) fL MCH 27.1 (27.0-33.0) pg MCHC 33.2 (31.0-35.0) g/dl RDW 14.1 (11.0-16.0) % Plt Count 255 (160-400) X10*3/uL MPV 9.6 (9.4-12.3) fL Immature Gran % (Auto) 0.3 (0.0-0.4) % Neut % (Auto) 62.4 (45-73) % Lymph % (Auto) 25.9 (20-40) % [place] % (Auto) 8.1 (2-11) % Eos % (Auto) 1.9 (0-4) % Baso % (Auto) 1.4 (0-2) % Lymph # (Auto) 1.9 (1.2-4.9) X10*3/uL [place] # (Auto) 0.6 (0.1-1.2) X10*3/uL Eos # (Auto) 0.1 (0.0-0.4) X10*3/uL Baso # (Auto) 0.1 (0.0-0.2) X10*3/uL Abs Immat Gran (auto) 0.02 (0.00-0.03) X10*3/uL Absolute Neuts (auto) 4.6 (2.0-8.3) x10*3/uL Absolute Nucleated RBC 0.000 (0.0-0.012) X10*3/uL Nucleated RBC % (auto) 0.0 (0.0-0.2) /100WBC D-Dimer High Sensitivty 243 NG/ML Sodium 139 (135-145) mmol/L Potassium 3.8 (3.3-5.1) mmol/L Chloride 106 (96-108) mmol/L Carbon Dioxide 23 (22-29) mmol/L Anion Gap 14 (12-20) BUN 10 (9-16) mg/dL Creatinine 0.76 (0.5-1.4) mg/dL Estim Creat Clear Calc 60.2 Estimated GFR > 60 Random Glucose 95 (60-115) mg/dL Calcium 9.4 (8.4-10.2) mg/dL Magnesium 1.9 (1.6-2.6) mg/dL Total Bilirubin 0.6 (0.0-1.0) mg/dL AST 23 (5-31) U/L ALT 14 (0-31) U/L Alkaline Phosphatase 121 H (39-117) U/L Troponin I High Sens < 2.7 < 2.7 (<3.5-17.0) ng/L B-Natriuretic Peptide 79 (<100) pg/mL Total Protein 7.9 (6.5-8.0) g/dL Albumin 4.3 (3.5-5.0) g/dL Influenza Type A (PCR) NEGATIVE (Negative) Influenza Type B (PCR) NEGATIVE (Negative) RSV RNA Qual (PCR) NEGATIVE (Negative) SARS-CoV-2 RNA (RT-PCR) NEGATIVE (Negative) Independent Interpretation I performed an independent interpretation of an: EKG Interpretation: EKG sinus bradycardia at a ventricular rate of 56 beats per minute, [place] interval 146, QT QTC 414/399. No ST elevation or depression. Radiology Impression Discussion of test interpretation with radiology: I have reviewed the radiologist's reading. Radiologist Impression: CLINICAL HISTORY: elevated ddimer Nuclear medicine perfusion lung scan. Technique: After intravenous injection of 3 mCi technetium 99 MAA multiple gamma camera views were obtained. Findings: There is uniform uptake of isotope throughout both lungs with no focal peripheral wedge-shaped perfusion defects. Impression: Normal nuclear medicine perfusion lung scan. No signs of pulmonary embolus. This document has been electronically signed by: Lorenzo Shepherd MD on 02/03/2025 17:37:35 Dictated By: Lorenzo Shepherd MD Discharge Plan Discharge Clinical Impression: Upper respiratory infection Patient Disposition: Home, Self-Care Instructions: Upper Respiratory Infection (ED) Additional Instructions: You were seen in the emergency department today. Your blood work was reassuring today. You have no evidence of a pulmonary embolism on your scans today. Please use antibiotic eye drops as prescribed. I am also recommending you start on a allergy medication as this could also be an allergic symptom. Drink plenty of fluids get plenty of rest. Follow-up with your primary care physician regarding this visit. If any new or worsening symptoms occur including but not limited to worsening chest pain, shortness of breath, please seek emergent care. Prescriptions: New erythromycin 5 mg/gram (0.5 %) ointment 0.5 inch ophthalmic (eye) QID 7 Days Qty: 3.5 0RF azithromycin 250 mg tablet See Rx Instructions PO .COMPLEX Qty: 6 0RF Rx Instructions: For 250 mg dose pack: take 500 mg today (day 1), then 250 mg for 4 days (days 2-5) prednisone 20 mg tablet 20 mg PO DAILY 5 Days Qty: 5 0RF No Action albuterol sulfate 90 mcg/actuation HFA aerosol inhaler 1 inh inhalation QID PRN (Reason: shortness of breath or wheezing) Qty: 8.5 0RF omeprazole 20 mg capsule,delayed release(DR/EC) 20 mg PO DAILY Qty: 14 0RF (DME) compression panty, 1x-2x Misc See Rx Instructions .Route Qty: 1 0RF Rx Instructions: As directed metoprolol succinate 50 mg tablet extended release 24 hr 50 mg PO DAILY hydrochlorothiazide 50 mg tablet 50 mg PO DAILY calcium carbonate-vitamin D3 600 mg-10 mcg (400 unit) tablet 2 tab PO DAILY Stand Alone Forms: Work/School Release Interventions: ED Discharge Assessment Last Done: 02/03/25 18:42 Discharge Date/Time: 02/03/25 18:42 Print Language: Portuguese
[2025-02-03 12:15] LABS: MANUAL DIFF FLAG NO
[2025-02-03 12:18] LABS: Basophils Absolute Auto 0.1 X10*3/uL (0.0-0.2); Basophils Percent Auto 1.4 % (0-2); Eosinophils Absolute Auto 0.1 X10*3/uL (0.0-0.4); Eosinophils Percent Auto 1.9 % (0-4); Hematocrit 37.6 % (37.0-47.0); Hemoglobin 12.5 g/dl (12.0-16.0); Imm Gran Abs Auto 0.02 X10*3/uL (0.00-0.03); Imm Gran Pct Auto 0.3 % (0.0-0.4); Lymphocytes Absolute Auto 1.9 X10*3/uL (1.2-4.9); Lymphocytes Percent Auto 25.9 % (20-40); Mean Corpuscular HGB Conc 33.2 g/dl (31.0-35.0); Mean Corpuscular Hemoglobin 27.1 pg (27.0-33.0); Mean Corpuscular Volume 81.6 fL (80.0-98.0); Mean Platelet Volume 9.6 fL (9.4-12.3); Monocytes Absolute Auto 0.6 X10*3/uL (0.1-1.2); Monocytes Percent Auto 8.1 % (2-11); Neutrophils Absolute Auto 4.6 x10*3/uL (2.0-8.3); Neutrophils Percent Auto 62.4 % (45-73); Platelet Count 255 X10*3/uL (160-400); Red Blood Count 4.61 X10*6/uL (4.20-5.50); Red Cell Distribution Width 14.1 % (11.0-16.0); White Blood Count 7.3 X10*3/uL (4.8-10.8)
[2025-02-03 12:29] LABS: Alanine Aminotransferase 14 U/L (0-31); Albumin Level 4.3 g/dL (3.5-5.0); Alkaline Phosphatase 121 U/L (39-117); Anion Gap 14 (12-20); Aspartate Amino Transferase 23 U/L (5-31); Bilirubin Total 0.6 mg/dL (0.0-1.0); Blood Urea Nitrogen 10 mg/dL (9-16); Calcium 9.4 mg/dL (8.4-10.2); Carbon Dioxide 23 mmol/L (22-29); Chloride 106 mmol/L (96-108); Creatinine Clr Calc Pharmacy 60.2; Estimated Glomerular Filt Rate > 60; Glucose Random 95 mg/dL (60-115); Magnesium 1.9 mg/dL (1.6-2.6); Potassium 3.8 mmol/L (3.3-5.1); Sodium 139 mmol/L (135-145); Total Protein 7.9 g/dL (6.5-8.0)
[2025-02-03 12:35] LABS: B Type Natriuretic Peptide 79 pg/mL (<100)
[2025-02-03 12:37] LABS: Troponin-I High Sensitivity < 2.7 ng/L (<3.5-17.0)
[2025-02-03 12:53] LABS: Influenza A PCR NEGATIVE (Negative); Influenza B PCR NEGATIVE (Negative); Resp Syncy Virus RNA Qual PCR NEGATIVE (Negative); SARS COV2 PCR INHOUSE NEGATIVE (Negative)
[2025-02-03 14:16] VITALS: BP 152/69; PULSE 58; RESP 16; TEMP 36.7; O2SAT 97
[2025-02-03 14:59] LABS: D Dimer High Sensitivity 243 NG/ML
[2025-02-03 15:15] LABS: Troponin-I High Sensitivity < 2.7 ng/L (<3.5-17.0)
--- NOTE | 2025-02-03 16:10 | PC.NURSE ---
pt taken to nuc [facility] for VQ scan
[2025-02-03 18:13] VITALS: BP 188/89; PULSE 61; RESP 20; TEMP 36.6; O2SAT 97
[2025-02-03 18:42] VITALS: BP 188/89; PULSE 61; RESP 20; TEMP 36.6; O2SAT 97
== END 2025-02-03 18:42 | disposition home or self-care (01) ==
PROVIDERS: Physician Assistant Medical; Emergency Provider Emergency Medicine Emergency Medical Services; PCP Physician Assistant
DX: J06.9 Acute upper respiratory infection, unspecified (principal); R07.9 Chest pain, unspecified; R06.02 Shortness of breath; I10 Essential (primary) hypertension; J45.909 Unspecified asthma, uncomplicated
CPT/HCPCS: 0241U; 36415; 71045; 78580; 80053; 83735; 83880; 84484; 85025; 85379; 93005; 99284; A9540

== ENCOUNTER → 2025-02-03 11:42 | Outpatient (BNV) | payer OTHER, SELFPAY | PROVIDERS: Emergency Provider Emergency Medicine Emergency Medical Services; PCP Physician Assistant; Visit Provider Internal Medicine Cardiovascular Disease | DX: R00.1 Bradycardia, unspecified (principal) | CPT/HCPCS: 93010 ==

== ENCOUNTER → 2025-02-03 11:42 | Outpatient (BNV) | payer OTHER, SELFPAY | PROVIDERS: PCP Physician Assistant; Visit Provider Radiology Diagnostic Radiology | DX: R79.89 Other specified abnormal findings of blood chemistry (principal); R05.9 Cough, unspecified | CPT/HCPCS: 71045; 78580 ==

== ENCOUNTER 2025-02-20 12:34 | Emergency (ER) | payer OTHER, SELFPAY ==
[2025-02-20 12:41] VITALS: BP 160/98; PULSE 80; RESP 18; TEMP 36.9; O2SAT 95; BMI 36.4
--- NOTE | 2025-02-20 12:42 | ED_ITS ---
HPI - General Adult General Chief complaint: Eye Problems Stated complaint: R & L Eye Infection Time Seen by Provider: 02/20/25 17:47 Source: patient Mode of arrival: ambulatory Limitations: no limitations History of Present Illness ED Provider: Niesha Hamm PA-C HPI narrative: Patient is a 74 year old assigned female at with a history of asthma and HTN presenting to the emergency department today with bilateral eye irritation and concern for infestation of insects of the eyes. Patient states that she has been having issues with both of her eyes for weeks and has been on numerous drops and antibiotic ointment however, her symptoms have not improved. Patient states that she believes she has mites of the eye lids similar to what her son has and she would like to be given medicine to wipe her eye lids out. Patient denies any dizziness, lightheadedness, abdominal pain, nausea, vomiting, fever, chills, blurry vision, double vision, loss of vision, chest pain, difficulty jose luis athing, shortness of breath, back pain, night sweats, pain with urination, increased urinary frequency, increased urinary urgency, blood in her urine or stool, syncope or a near syncopal episode, recent trauma or falls, bowel incontinence, bladder incontinence, or any other complaints at this time. Onset (ago): week(s) Location: eyes, left and right Relieving factors: none Exacerbating factors: none Associated symptoms: denies other symptoms Treatments prior to arrival: other (multiple antibiotic drops and ointments) Related Data Home Medications ?Medication ?Instructions ?Recorded ?Confirmed calcium 600 mg (as 2 tab PO DAILY 10/08/23 10/08/23 carbonate)-vitamin D3 10 mcg (400 unit) tablet hydrochlorothiazide 50 mg tablet 50 mg PO DAILY 10/08/23 10/08/23 metoprolol succinate 50 mg 50 mg PO DAILY 10/08/23 10/08/23 tablet,extended release 24 hr Previous Rx's ?Medication ?Instructions ?Recorded albuterol sulfate 90 mcg/actuation 1 inh inhalation QID PRN shortness 09/25/22 aerosol inhaler of breath or wheezing #8.5 grams omeprazole 20 mg capsule,delayed 20 mg PO DAILY #14 caps 11/21/22 release compression panty, 1x-2x #1 ea 03/05/24 azithromycin 250 mg tablet See Rx Instructions PO .COMPLEX #6 02/03/25 tabs erythromycin 5 mg/gram (0.5 %) eye 0.5 inch ophthalmic (eye) QID 7 02/03/25 ointment days #3.5 grams prednisone 20 mg tablet 20 mg PO DAILY 5 days #5 tabs 02/03/25 tea tree oil 100 % topical See Rx Instructions .Route 02/20/25 .COMPLEX #60 mL Allergies Allergy/AdvReac Type Severity Reaction Status Date / Time amoxicillin Allergy Intermediate Hives Verified 02/20/25 12:46 Penicillins [PCN] Allergy Intermediate Hives Verified 02/20/25 12:46 iodine AdvReac Blister Verified 02/20/25 12:46 Review of Systems Constitutional: Constitutional: Reports no additional constitutional complaints, Denies chills, Denies fever(s) and Denies night sweats Eyes: Eyes: Reports no additional eye complaints, Denies blurry vision, Denies change in vision, Denies diplopia, Denies eye discharge, Denies loss of vision and Denies eye pain Comments: bilateral irritation / itching to the eyes ENT: Denies dizziness Cardiovascular: Cardiovascular: Reports no additional cardiovascular complaints, Denies chest pain, Denies lightheadedness, Denies Loss of Consciousness and Denies dyspnea Respiratory: Respiratory: Reports no additional respiratory complaints and Denies dyspnea Gastrointestinal: Gastrointestinal: Reports no additional gastrointestinal complaints, Denies abdominal pain, Denies melena, Denies hematochezia, Denies change in bowel habits and Denies change in stool character Genitourinary: Genitourinary: Denies hematuria, Denies urinary frequency, Denies dysuria, Denies urinary incontinence, Denies urinary hesitancy and Denies urinary urgency Musculoskeletal: Musculoskeletal: Reports no additional musculoskeletal complaints, Denies numbness and Denies tingling Neurologic: Denies dizziness, Denies loss of vision, Denies numbness and Denies tingling Psychiatric: Psychiatric: Reports no additional psychiatric complaints Endocrine: Endocrine: Reports no additional endocrine complaints Hematologic/Lymphatic: Hematologic/Lymphatic: Reports no additional hematologic/lymphatic complaints Allergic/Immunologic: Allergic/Immunologic: Reports no additional allergic/immunologic complaints PMFSH Past Medical History Attestation statement: The following information was validated with the patient. Source: old records reviewed and nursing notes reviewed Medical History Asthma Back pain Fluid retention in legs Hypertension Osteoporosis Surgical History H/O colonoscopy Social History Social History Alcohol intake: never Patient Tobacco Use Status: Never used Tobacco Advance Directives: Yes Advance Directives on File: Yes Advance Directives Date on File: 09/27/21 Do you have a plan to hurt others: No Plan Physical Exam ED Vital Signs: Vital Signs - 24 hr 02/20/25 12:41 02/20/25 18:13 Temperature 98.4 F 98.4 F Pulse Rate 80 80 Respiratory Rate 18 18 Blood Pressure 160/98 H 160/98 H Pulse Oximetry 95 95 Oxygen Delivery Method Room Air Room Air BMI result Body Mass Index 36.4 Const General: cooperative, no acute distress, alert and awake Nutritional Appearance: well nourished Orientation/consciousness: patient oriented x3 Limitations: no limitations HENMT Head: Yes normal to inspection and Yes atraumatic Ears: hearing grossly normal bilaterally and external ears normal General nose exam: Normal external nose present, no nasal discharge noted and no epistaxis Face and sinus: Yes normal facial exam, No abrasion and No laceration Mouth: Normal oral and palatal mucosa present, no drooling and no muffled voice Eyes Other: both eyes look irritated - consistent with blepharitis Pupils: Equal, round and reactive pupils present EOM: EOMs intact bilaterally Neck Neck: Yes normal visual inspection, Yes full ROM and Yes no lymphadenopathy Chest Chest palpation & inspection: normal inspection of the chest Resp Effort & Inspection: normal respiratory effort and able to speak in complete sentences GI Inspection: Yes normal to inspection Neuro General: patient oriented x3, moves all extremities and CN's II-XI intact bilaterally Cranial nerves: Yes Equal, round and reactive pupils present Cognition (Neuro): normal cognition Extrem General: Yes normal to inspection, Yes full ROM and Yes capillary refill normal Psych Appearance: grossly normal Mental Status: mental status grossly normal Affect: normal affect Attitude: cooperative Thought process: Normal thought process present Thought content: Normal thought content present Insight: Good insight present (Psych) Course Course Course Narrative: RME performed by Niesha Hamm PA-C. Patient is a 74 year old assigned female at presenting to the emergency department with bilateral eye infection. Patient states her son was diagnosed with insects in his eyes and she believes she is infected with this and that she has insects in her eye lids as well. Detailed physical exam and review of systems are deferred to the psychology lecturer. Patient placed back in the waiting room pending room availability. Medical Decision Making Medical Decision Making MDM Narrative: Patient is a 74 year old assigned female at with a history of asthma and HTN presenting to the emergency department today with bilateral eye irritation and concern for infestation of insects of the eyes. Patient's physical exam was consistent with blepharitis. Given the patient's concerns and clinical presentation, will treat the patient for demodex mite blepharitis and have her follow up with an customer care specialist. I explained my physical exam findings to the patient. I answered all questions asked by the patient. I stressed the importance of the patient taking her medication as directed (either prescribed or as the over the counter packaging recommends). I stressed the importance of the patient following up with her primary care provider and an guest services assistant. I stressed the importance of the patient returning to the emergency department immediately if her symptoms were to worsen or if she were to develop any dizziness, shortness of breath, difficulty breathing, chest pain, blurry vision, loss of vision, nausea, vomiting, abdominal pain, fever, chills, back pain, or any other complaints. Patient verbalized agreement and understanding with this treatment plan and discharge. Differential Diagnosis Differential Diagnoses: The differential diagnosis associated with the presentation includes Blepharitis Bilateral blepharitis Demodex infestation Admission/Observation Consideration of admission/observation: Escalation of care including admission/observation considered Patient would have been admitted to the hospital had her clinical presentation warranted hospital admission. 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 Please use the drops as directed. Follow up with your primary care provider and an customer care specialist. Return to the emergency department immediately if your symptoms worsen or if you develop any numbness, tingling, dizziness, shortness of breath, difficulty breathing, chest pain, blurry vision, loss of vision, nausea, vomiting, abdominal pain, fever, chills, back pain, or any other complaints. Please see the information below about our Patient Portal. If you are not yet enrolled in the [facility] Patient Portal, you will receive an enrollment email invitation following your visit to any [facility] setting. You may also self-enroll in the Patient Portal by visiting our website: [email or web address] The following information is required to access the Patient Portal: - Your [facility] Medical Record Number - Your personal home email address (must match what is in your electronic medical record, Registration staff can assist with this) - Name - Date of Capabilities of the Patient Portal: - Message some providers - View upcoming appointments - Access your health summary, medical history, and visit history - View current conditions and allergies - View procedure and lab results - View your medications, including guidelines, side effects, and precautions - Complete pre-appointment questionnaires requested by your provider - Ready summary reports of your office visits and procedures To access the Patient Portal Mobile [employer], follow these directions: - Search [employer] in the [employer] Store or [employer] Store - Download the [place]ne - Search for [facility] - Enter your login/password Prescriptions: New tea tree oil 100 % oil See Rx Instructions .ROUTE .COMPLEX Qty: 60 0RF Rx Instructions: Place 1 (ONE) drop on a dampened wash cloth and wipe the eye lids ONCE A WEEK for 6 (SIX) weeks. No Action albuterol sulfate 90 mcg/actuation HFA aerosol inhaler 1 inh inhalation QID PRN (Reason: shortness of breath or wheezing) Qty: 8.5 0RF omeprazole 20 mg capsule,delayed release(DR/EC) 20 mg PO DAILY Qty: 14 0RF (DME) compression panty, 1x-2x Misc See Rx Instructions .Route Qty: 1 0RF Rx Instructions: As directed erythromycin 5 mg/gram (0.5 %) ointment 0.5 inch ophthalmic (eye) QID 7 Days Qty: 3.5 0RF azithromycin 250 mg tablet See Rx Instructions PO .COMPLEX Qty: 6 0RF Rx Instructions: For 250 mg dose pack: take 500 mg today (day 1), then 250 mg for 4 days (days 2-5) prednisone 20 mg tablet 20 mg PO DAILY 5 Days Qty: 5 0RF metoprolol succinate 50 mg tablet extended release 24 hr 50 mg PO DAILY hydrochlorothiazide 50 mg tablet 50 mg PO DAILY calcium carbonate-vitamin D3 600 mg-10 mcg (400 unit) tablet 2 tab PO DAILY Referrals: Chinedu Zamarripa [Physician] - (Call to establish and follow up with an customer care specialist. ) Destini Gutierrez PA-C [Primary Care Provider] - Interventions: ED Discharge Assessment Last Done: 02/20/25 18:13 Discharge Date/Time: 02/20/25 18:13 Print Language: Slovak
--- OUTSIDE RECORDS SUMMARY | 2025-02-20 17:52 | XMS_ITS | Clinical Summary ---
Author Organization [facility] Address [address] [place] [address] Care Team Providers Care Service Electrician Name Role Phone Destini Gutierrez PA-C Primary Care Provider [phone] Source Comments PLEASE NOTE, if this patient is a minor, it may be UNLAWFUL to discuss sensitive information that is contained in these records (such as FAMILY PLANNING, MENTAL HEALTH or SUBSTANCE ABUSE) with the minor patient's parent or other person without the patient's specific authorization.[facility] Allergies Active Allergy Reactions Criticality Noted Date Comments Iodine Other (See Comments) 10/09/2013 valencia Penicillins Hives 10/09/2013 Medications blood pressure monitorIndication s:Essential hypertension Uncontrolled blood pressure - 1 Kit 0 10/05/20 15 Active miscellaneous medical supply miscIndications:C hronic pain of both knees,Localized edema,Age-related osteoporosis without current pathological fracture,Risk for falls by miscellaneous route 1 to 2 (one to two) times daily Shower chair, lifetime 1 Each 07/11/20 21 Active miscellaneous medical supply miscIndications:C hronic pain of both knees,Age-related osteoporosis without current pathological fracture,Risk for falls by miscellaneous route once daily Walker with seat and four wheels, lifetime 1 Each 07/11/20 21 Active compress.stocking ,knee,reg,lrgIndi cations:Localized edema Please use the compression stockings (20-30) during the day 1 Each 09/03/20 21 Active benzonatate (TESSALON) 200 mg capsuleIndication s:Subacute cough Take 1 Capsule by mouth 3 (three) times daily as needed for cough 15 Capsule 09/12/20 22 Active lidocaine (LMX) 4 % creamIndications: Chronic right shoulder pain Apply topically as needed for pain 15 g 1 10/26/20 22 Active fluticasone (FLONASE) 50 mcg/actuation nasal sprayIndications: Subacute cough SHAKE LIQUID AND USE 1 SPRAY IN EACH NOSTRIL EVERY DAY 16 g 01/09/20 23 Active MISCELLANEOUS MEDICAL SUPPLY MISCIndications:P rimary osteoarthritis of both knees,Nontraumati c incomplete tear of right rotator cuff,DDD (degenerative disc disease), lumbar,Spondylosi s of lumbar joint Order electric wheel scooter with handle. Use daily. Need lifetime. 1 Each 05/01/20 23 Active docusate sodium (COLACE) 100 mg capsuleIndication s:Acute hemorrhoid Take 1 Capsule by mouth 2 (two) times daily 180 Capsule 1 07/26/20 23 Active methocarbamoL (ROBAXIN) 500 mg tabletIndications :Chronic right shoulder pain Take 1 Tablet by mouth 3 (three) times daily 20 Tablet 11/02/20 23 Active compr.stocking,kn ee,long,largeIndi cations:Edema, lower extremity 15-20 compression stockings large high. Daily use. BMI 32.21 1 Each 06/18/20 24 Active hydroCHLOROthiazi de (HYDRODIURIL) 50 mg tabletIndications :Essential hypertension TAKE 1 TABLET BY MOUTH EVERY DAY 90 Tablet 1 09/16/20 24 Active metoprolol succinate XL (TOPROL-XL) 50 mg 24 hr tabletIndications :Essential hypertension TAKE 1 TABLET BY MOUTH EVERY DAY 90 Tablet 2 12/11/19 25 Active acetaminophen (TYLENOL) 500 mg tabletIndications :Chronic pain of both knees,Primary osteoarthritis involving multiple joints TAKE 1 TABLET BY MOUTH EVERY 4 HOURS NEEDED FOR PAIN 60 Tablet 2 12/11/19 25 Active diclofenac sodium (VOLTAREN) 1 % gelIndications:Sp ondylosis of lumbar joint APPLY TOPICALLY TO THE AFFECTED AREA TWICE DAILY Strength: 1 % 100 g 1 12/11/19 25 Active ibuprofen 600 mg tabletIndications :Spondylosis of lumbar joint Take 1 Tablet by mouth 2 (two) times daily 180 Tablet 12/11/19 25 Active furosemide (LASIX) 20 mg tabletIndications :Edema, lower extremity Take 1 Tablet by mouth once daily 7 Tablet 12/11/19 25 Active VENTOLIN HFA 90 mcg/actuation inhalerIndication s:SOB (shortness of breath) INHALE 2 PUFFS INTO THE LUNGS EVERY 4 HOURS NEEDED FOR WHEEZING 18 g 1 12/11/19 25 Active calcium carbonate-vitamin D3 600 mg-10 mcg (400 unit) tabletIndications :Primary osteoarthritis involving multiple joints Take 2 Tablets by mouth once daily 60 Tablet 11 12/11/19 25 Active clindamycin (CLEOCIN) 300 mg capsuleIndication s:Cellulitis of periorbital region of both eyes Take 1 Capsule by mouth 3 (three) times daily 21 Capsule 02/12/20 25 Active carboxymethylcell ulose (REFRESH) 0.5 % ophthalmic solution Place 1 Drop into both eyes 4 (four) times daily 15 mL 1 02/12/20 25 025 Discontin ued(Cance lled) polymyxin B sulf-trimethoprim (POLYTRIM) 10,000 unit- 1 mg/mL ophthalmic solutionIndicatio ns:Cellulitis of periorbital region of both eyes Apply 1 Drop to eye 4 (four) times daily for 7 days 10 mL 02/12/20 25 025 Active Problems Problem Noted Date Diagnosed Date Edema, lower extremity 03/26/2024 Plantar fasciitis of left foot 03/26/2024 Calcaneal spur of left foot 03/26/2024 Spondylosis of lumbar joint 05/01/2023 Nontraumatic incomplete tear of right rotator cu ff, chronic 05/01/2023 DDD (degenerative disc disease), lumbar 05/01/20 Primary osteoarthritis involving multiple joints 04/29/2021 Essential hypertension 04/29/2021 Age-related osteoporosis wit hout current pathological fracture 04/29/2021 Overview (04/29/2021): Seen on DEXA 2020 Gall stone 01/18/2015 Overview (01/18/2015): As noted on US liver 01/14/15 ,single gallstone without evidence of cholecystitis Nail fungus 10/09/2013 Obesity 10/09/2013 Encounters Date Type Department Care Team Description 02/11/2025 11:00 AM EDT Office Visit [address] [address] Essence Song, JASSI Cellulitis of periorbital region of both eyes (Primary Dx) 01/05/2025 [facility] [address] [place] [address] Destini Gutierrez PA-C from Last 3 Months Immunizations Immunization Administration Dates Next Due PFIZER COVID VACCINE, PURPLE CAP, 12+ 02/10/2021 ,01/20/2021 TDAP 11/02/2015 Family History Medical History Relation Name Comments Diabetes Father Hypertension Father Depression Mother Diabetes Paternal Aunt Hypertension Paternal Aunt Diabetes Paternal Uncle Hypertension Paternal Uncle Relation Name Status Comments Father Mother Paternal Aunt Paternal Uncle Social History Tobacco Use Types Packs/Day Years Used Date Smoking Tobacco: Never Smokeless Tobacco: Never Tobacco Cessation:Counseling Given: Not Answered Alcohol Use Standard Drinks/Week Comments Not Currently 0 (1 standard drink = 0.6 oz pur e alcohol) Social Connections Answer Date Recorded Connectedness 0 07/26/2023 Financial Resource Strain Answer Date R ecorded Financial Resource Strain 0 2022 Stress Answer Date Recorded Stress 0 07/26/2023 Physical Activity Answer Date Recorded Physical Activity 0 07/12/2019 Food Insecurity Answer Date Recorded Food 0 07/26/2023 Transportation Needs Answer Date Record ed Transportation 0 07/26/2023 Housing Stability Answer Date Recorded Housing 0 07/26/2023 Safety and Environment Answer Date Justin rded Safety 0 07/26/2023 Utilities Answer Date Recorded Utilities 0 07/26/2023 Employment Answer Date Recorded Stress 0 07/26/2023 Comments No Sex and Gender Information Value Date Recorded Sex Assigned at Female 01/24/2019 11:07 AM PST Legal Sex Female 11:36 AM PDT Gender Identity Female 01/24/2019 11:07 AM PST Sexual Orientation Straight 01/24/2019 11 :07 AM PST Last Filed Vital Signs Vital Sign Reading Time Taken Comments Blood Pressure 140/80 02/11/2025 10:56 AM EDT Pulse 60 02/11/2025 10:56 AM EDT Temperature 36.6 ??C (97.9 ??F) 02/11/2025 10:56 AM E DT Respiratory Rate 18 06/18/2024 3:57 PM EDT Oxygen Saturation 97% 06/18/2024 3:57 PM EDT Inhaled Oxygen Concentration - - Weight 81.8 kg (180 lb 6.4 oz) 02/11/2025 10:56 AM EDT Height 157.5 cm (5' 2 ) 02/11/2025 10:56 AM EDT Body Mass Index 33 02/11/2025 10:56 AM EDT Plan of Treatment Upcoming Encounters Date Type Department Care Team (Late st Contact Info) Description 03/13/2025 10:20 AM EDT Office Visit [facility] [address] [place] [id number] Destini Gutierrez PA-C [address] [place] [address] Health Maintenance Due Date Last Done Comments CT Colonography 1995 Fecal DNA 1995 Flexible Sigmoidoscopy 1995 Imm-Pneumococcal 65+ (1 of 1 - PCV) 2000 Imm-Zoster, Recombinant (1 of 2) 2000 Breast Cancer Screening (Mammogram) 11/15/2023 11/15/2022, 01/26/2020, 08/04/2016 [id number] ( season) 2024 021, 01/20/2021 Imm-Influenza (#1) 2024 08/28/2014 (Declined) Falls Prevention 11/02/2024 11/02/2023, 06/2022, 04/29/2021 Alcohol and Drug Screen 11/19/2024 02/04/20 24, 07/26/2023, 02/14/2023, Additional history exists Depression Annual Screen 11/19/2024 02/04/2024, 10/19 Medicare Annual Wellness Visit 02/03/2025 0 02/04/2024, 12/15/2019, 11/02/2015, Additional history exists Diabetes Screening 06/18/2025 06/18/2024, 0 02/04/2024, 02/04/2024, Additional history exists Tobacco Screening 06/30/2025 06/30/2024 Lipid Screening 10/26/2025 10/26/2022, 11/20, 10/09/2013 Imm-DTaP/Tdap/Td (2 - Td or Tdap) 11/02/2025 015 Colonoscopy 02/07/2027 02/07/2017 Colorectal Cancer Screening 02/07/2027 FIT/gFOBT 02/07/2027 02/07/2017 Hepatitis C Screening Completed 12/15/2019 Bone Density Screening Completed 04/08/2021, 2020 Goals Goal Patient Goal Type Associated Problems Recent Progress Patient-Stated? Author Blood Pressure < 140/90 Blood Pressure 140/80( 025 10:56 AM EDT) No Veronica Cardenas, AnibalD Procedures Procedure Name Priority Date/Time Associated Diagnosis Comments URINALYSIS, MULTISTIX (POCT) Routine 02/11/2025 1:02 PM EDT Cellulitis of periorbital region of both eyes IMAGING SCANNED DOCUMENT 02/03/2025 3:00 AM EDT IMAGING SCANNED DOCUMENT 02/03/2025 3:00 AM EDT IMAGING SCANNED DOCUMENT 02/03/2025 3:00 AM EDT IMAGING SCANNED DOCUMENT 02/03/2025 3:00 AM EDT COMPREHENSIVE METABOLIC PANEL Routine 06/18/2024 4:49 PM EDT Edema, lower extremity REFERRAL FOR MAMMOGRAM Routine 3:00 AM EST Screening mammogram, encounter for LIPIDS W RFLX TO DIRECT LDL Routine 10/26/2022 11:08 AM EST Annual physical exam HISTORIC DEXA SCAN 04/08/2021 12 :00 AM EDT HEPATITIS A,B,C PANEL Routine 12/15/2019 3:56 PM EST Routine general medical examination at a health care facility COLONOSCOPY Routine 02/07/2017 from Last 3 Months or Most Recently Relevant to Health Maintenance Results * (ABNORMAL) URINALYSIS, MULTISTIX (POCT) (02/11/2025 1:02 PM EDT) URINE GLUCOSE 500.0(A) NEGATIVE [facility] POCT URINE BILIRUBIN SMALL(A) NEGATIVE [facility] POCT URINE KETONES LARGE(A) NEGATIVE [facility] POCT URINE SPECIFIC GRAVITY 1.020 <=1.005 - >=1.030 [facility] POCT URINE BLOOD LARGE(A) NEGATIVE [facility]- BACK OFFICE POCT URINE PH 5.5 5.0 - 8.5 [facility]- BACK OFFICE POCT URINE PROTEIN 100 (2+)(A) Negative [facility] POCT URINE UROBILINOGEN 0.2 0.2 - 1.0 E.U./dL [facility]- BACK OFFICE POCT URINE NITRITE NEGATIVE NEGATIVE [facility]- BACK OFFICE POCT URINE LEUKOCYTES TRACE(A) NEGATIVE [facility] POCT URINE COLOR DARK YELLOW STRAW, YELLOW [facility]- [facility] OFF[facility] POCT ODOR URINE Abnormal(A) Normal [facility] POCT CLARITY OF URINE CLOUDY(A) CLEAR [facility] POCT Urine Urine specimen / Unknown 02/11/2025 1:02 PM EDT Result [facility] Essence Song LINK TRAINER MECHANIC LAB - NO BLOOD DRAW Final Resul t [facility]- [facility] POCT * IMAGING SCANNED DOCUMENT (02/03/2025 3:00 AM EDT) Only the most recent of4 resultswithin the time period is included. 02/03/2025 3:00 AM EDT Destini Gutierrez PA-Jadiel SCAN IMAGING Final Result * COMPREHENSIVE METABOLIC PANEL (06/18/2024 4:49 PM EDT) GLUCOSE 105 65 - 139 mg/dL [facility] Comment: ?Non-fasting reference interval UREA NITROGEN (BUN) 16 7 - 25 mg/dL [facility] CREATININE (blood) 0.94 0.60 - 1.00 mg/dL [facility] EGFR 64 > OR = 60 mL/min/1. 73m2 [facility] BUN/CREATININE RATIO SEE NOTE: [facility] Comment: ?? Not Reported: BUN and Creatinine are within ?? reference range. ? SODIUM 138 135 - 146 mmol/L [facility] POTASSIUM 4.1 3.5 - 5.3 mmol/L [facility] CHLORIDE 103 98 - 110 mmol/L [facility] CARBON DIOXIDE 23 20 - 32 mmol/L [facility] CALCIUM 9.6 8.6 - 10.4 mg/dL [facility] PROTEIN, TOTAL 7.2 6.1 - 8.1 g/dL [facility] ALBUMIN 4.3 3.6 - 5.1 g/dL [facility] GLOBULIN 2.9 1.9 - 3.7 g/dL (calc) [facility] ALBUMIN/GLOBULI N RATIO 1.5 1.0 - 2.5 (calc) [facility] BILIRUBIN, TOTAL 0.4 0.2 - 1.2 mg/dL [facility] ALKALINE PHOSPHATASE 126 37 - 153 U/L [facility] AST 15 10 - 35 U/L [facility] ALT 11 6 - 29 U/L [facility] Blood Blood / Unknown 06/18/2024 4 :49 PM EDT 06/18/2024 4:49 PM EDT Narrative [facility] - 06/19/2024 9:54 AM EDT FASTING:NO Destini Gutierrez PA-C LAB - BLOOD DRAW Edited Resu lt - Final [facility] [address] [address], [facility] [address] [address] * REFERRAL FOR MAMMOGRAM (11/15/2022 3:00 AM EST) 11/15/2022 3:00 AM EST Destini Gutierrez PA-C IMG RFL MAMMO Edited Resul t - Final * LIPIDS W RFLX TO DIRECT LDL (10/26/2022 11:08 AM EST) CHOLESTEROL, TOTAL 161 <200 mg/dL [facility] HDL CHOLESTEROL 59 > OR = 50 mg/dL [facility] TRIGLYCERIDES 72 <150 mg/dL [facility] LDL-CHOLESTEROL 86 99 mg/dL (calc) [facility] Comment: Reference range: <100 Desirable range <100 mg/dL for primary prevention; ?? <70 mg/dL for patients with CHD or diabetic patients with > or = 2 CHD risk factors. LDL-C is now calculated using the Avila calculation, which is a validated novel method providing better accuracy than the Friedewald equation in the estimation of LDL-C. Michael WHEELER et al. MICHAEL. 2013;310(19): 1069-9292 (http://education.ReplyBuy/faq/AIM235) CHOL/HDLC RATIO 2.7 <5.0 (calc) [facility] NON-HDL CHOLESTEROL 102 <130 mg/dL (calc) [facility] Comment: For patients with diabetes plus 1 major ASCVD risk factor, treating to a non-HDL-C goal of <100 mg/dL (LDL-C of <70 mg/dL) is considered a therapeutic option. Blood Blood / Unknown 10/26/2022 1 1:08 AM EST 10/26/2022 11:08 AM EST Destini Gutierrez PA-C LAB - BLOOD DRAW Final Resul t [facility] [address] [address], [facility] [address] [address] * HISTORIC DEXA SCAN (04/08/2021 12:00 AM EDT) Anatomical Region Laterality Modality Other 04/08/2021 us Destini Gutierrez PA-C IMG DXA Final Result * (ABNORMAL) HEPATITIS A,B,C PANEL (12/15/2019 3:56 PM EST) HEPATITIS B SURFACE ANTIBODY POSITIVE(A) NEGATIVE [facility] HEPATITIS B SURFACE ANTIGEN NEGATIVE NEGATIVE [facility] Comment: Over the counter supplements containing high doses of biotin may interfere with this assay. ??If interference is suspected, patients shoud be retested after refraining from biotin supplements for 72 hours. HEPATITIS C VIRUS DIAGNOSTIC NEGATIVE NEGATIVE [facility] [employer] [facility] HEPATITIS B CORE ANTIBODY NEGATIVE NEGATIVE [facility] HEPATITIS A ANTIBODY TOTAL NEGATIVE NEGATIVE [facility] Comment: Over the counter supplements containing high doses of biotin may interfere with this assay. ??If interference is suspected, patients shoud be retested after refraining from biotin supplements for 72 hours. Blood specimen (specimen) Blood / Unknown 12/15/2019 3:56 PM EST 12/15/2019 8:05 PM EST Narrative [employer] [facility] - 12/15/2019 10:19 PM EST [employer], [place] [address] [place] [id number] ORD# [id number] Angela ASHLEY LAB - BLOOD DRAW Edited Result - Final Performing Organization Address City/State/[facility] Co de Phone Number [facility] [place] [address], * (ABNORMAL) COLONOSCOPY (02/07/2017) Provider [facility] PROCEDURES Final Result from Last 3 Months or Most Recently Relevant to Health Maintenance Insurance [facility] Member Subscriber Plan / Payer (Ef fective 2016-Present) Name:Ana Lockett Relation to Subscriber:Self Name:Ana Lockett Payer ID:[id number] Group ID:Not on file Type:Indemnity Address: [address] [place] [address] Care Teams Service Electrician Relationship Specialty Start Date End Date Destini Gutierrez PA-C [address] [place] [address] PCP - General Internal Medicine 07/05/21
--- OUTSIDE RECORDS SUMMARY | 2025-02-20 17:52 | XMS_ITS | Clinical Summary ---
Author Organization [facility], Address [address] [place] [address] [place] [address] Phone Care Team Providers Care Hydrator Operator Name Role Phone Destini Gutierrez PA-C Primary Care Provider [phone] Medications Calcium Carb-Cholecalci ferol (Calcium-Vitami n D) 600-400 MG-UNIT tablet 2 Active hydrocortisone 1 % cream 2 (two) times a day APPLY TOPICALLY TO THE AFFECTED AREA TWICE DAILY 1 Active hydroCHLOROthia zide (HYDRODIURIL) 50 MG tablet Take 50 mg by mouth 1 (one) time each day 1 Active hydrOXYzine (ATARAX) 25 MG tablet TAKE 1 TABLET BY MOUTH EVERY NIGHT AT BEDTIME NEEDED FOR ANXIETY OR ITCHING OR SLEEP 1 Active metoprolol succinate XL (TOPROL XL) 50 MG 24 hr tablet Take 50 mg by mouth 1 (one) time each day 1 Active Active Problems Problem Noted Date Diagnosed Date Hypertensive disorder 01/13/2022 Social History Tobacco Use Types Packs/Day Years Used Date Smoking Tobacco: Never Assessed Comments Unknown Sex and Gender Information Value Date Recorded Sex Assigned at Not on file Legal Sex Female 1:07 PM EST Gender Identity Not on file Sexual Orientation Not on file Last Filed Vital Signs Vital Sign Reading Time Taken Comments Blood Pressure 138/76 01/17/2022 11:35 AM EST Pulse - - Temperature - - Respiratory Rate - - Oxygen Saturation - - Inhaled Oxygen Concentration - - Weight - - Height - - Body Mass Index - - Plan of Treatment Health Maintenance Due Date Last Done Comments Breast Cancer Screening 1950 Colorectal Cancer Screening: Annual FOBT 1999 Colorectal Cancer Screening: Colonoscopy 1999 Colorectal Cancer Screening: Sigmoidoscopy 1999 Pneumococcal Vaccine: 65+ Ye ars (1 of 1 - PCV) 2015 Influenza Vaccine (Season Ended) 2025 Hepatitis B Vaccine Aged Out No longe r eligible based on patient's age to complete this topic Insurance [facility] [place] [id number] Care Teams Hydrator Operator Relationship Specialty Start Date End Date Destini Gutierrez PA-C [address] [place] [address] PCP - General Physician Brand Planner 12/06/21
--- OUTSIDE RECORDS SUMMARY | 2025-02-20 17:52 | XMS_ITS | Encounter Summary ---
Author Organization [facility] Address [address] [place] [address] Phone Care Team Providers Care Newspaper Copy Editor Name Role Phone Destini Gutierrez PA-C Primary Care Provider [phone]- [phone] Encounter Details Date Type Department Care Team (Late st Contact Info) Description 12/06/2021 Documentation Only [facility], [address] [place] [address] Destini Gutierrez PA-C [address] [place] [address] Social History Tobacco Use Types Packs/Day Years Used Date Smoking Tobacco: Never Assessed Comments Unknown Sex and Gender Information Value Date Recorded Sex Assigned at Not on file Legal Sex Female 1:07 PM EST Gender Identity Not on file Sexual Orientation Not on file documented as of this encounter Plan of Treatment Not on file documented as of this encounter Visit Diagnoses Not on filedocumented in this encounter Care Teams Newspaper Copy Editor Relationship Specialty Start Date End Date Destini Gutierrez PA-C [address] [place] [address] PCP - General Physician Glass Lathe Operator 12/06/21 documented as of this encounter
--- OUTSIDE RECORDS SUMMARY | 2025-02-20 17:52 | XMS_ITS | Patient Health Record ---
Author Organization [facility] Address [address] [place] [address] Care Team Providers Care Byproduct Engineer Name Role Phone Destini Gutierrez Primary Care Provider Buzz Luna Unavailable [phone] Allergies Allergen (clinical drug ingredient) Drug/Non Drug Allergy documented on EMR Reaction Allergy Type Onset Date Status Penicillin Unknown Drug Allergy Active Reason For Referral No Information Medications Medication SIG (Take, Route, Frequency, Duration) Notes Start Date End Date Status Metoprolol Succinate ER 50 MG TAKE 1 TABLET BY MOUTH EVERY DAY Oral for 90 I10,Unavailab le Active Ventolin HFA 108 (90 Base) MCG/ACT INHALE 2 PUFFS INTO THE LUNGS EVERY 4 HOURS NEEDED FOR WHEEZING Inhalation for 16 R0602,Unavail able Active MiraLax (colon prep) 17 GM/SCOOP 1 238 Gm bottle mixed with Gatorade or Crystal Light Orally begin at 5:00 p.m. the day before the procedure for 1 day 08/20/2023 Active Calcium Carb-Cholecalciferol 600-10 MG-MCG Oral for 90 Active hydroCHLOROthiazide 50 MG TAKE 1 TABLET BY MOUTH EVERY DAY Oral for 90 I10,Unavailab le Active Dulcolax (colon prep) 5 MG take at 3:00 p.m and 7:00p.m. Orally two tablets twice a day for one day for 1 day 08/20/2023 Active Immunizations Vaccine Route Administration Date Status Comme nts Influenza Unknown 08/09/2022 Administered Social History Tobacco Use: Social History Observation Description Date Details (start date - stop date) Never Smoker NA - NA Tobacco Use/Smoking Question Answer Notes Patient is a nonsmoker Alcohol Screen Question Answer Notes Did you have a drink containing alcohol in the p ast year? No Points 0 Interpretation Negative Problems Problem Type SNOMED Code ICD Code Onset Dates Problem Status W/U Status Risk Notes Problem 093448559 Colon cancer screening (Z12.11) Active confirmed Problem Diverticular disease of colon (052281280) Diverticulosis of large intestine without perforation or abscess without bleeding (K57.30) Active confirmed Problem 74096262 Calculus of gallbladder without cholecystitis without obstruction (K80.20) Active confirmed Plan Of Treatment Future Test Test Name Order Date COLONOSCOPY 08/01/2023 Insurance Providers Payer Name Payer Address Payer Phone Subscriber Number Group Number Insured Name Patient Relationship to Insured Coverage Start Date Coverage End Date [facility] [address] Attn Claims [place] [id number] GUNNER FLORES Self - patient is the insured Medical (General) History Medical History History ICD Code HTN Denies OR,DM,CVA,renal disease Asthma Reports 1 negative colonosco py at approx age 62 at [facility] but describes a poor prep ; she may have had 1 before but is not sure about that Gallstone seen on CT in 2020 -reviewed with patient at the 07/2023 OV--she is asymptomatic Surgical History Surgery Date(Month/Year)
--- OUTSIDE RECORDS SUMMARY | 2025-02-20 17:52 | XMS_ITS | Encounter Summary ---
Author Organization [facility] Address [address] [place] [address] Phone Care Team Providers Care Information Assurance Manager Name Role Phone Destini Gutierrez PA-C Primary Care Provider +1- [phone] Encounter Details Date Type Department Care Team (Late st Contact Info) Description 12/06/2021 Documentation Only [facility] [place], [address] [place] [address] Destini Gutierrez PA-C [address] [place] [address] Social History Tobacco Use Types Packs/Day Years [...] on filedocumented in this encounter Care Teams Information Assurance Manager Relationship Specialty Start Date End Date Destini Gutierrez PA-C [address] [place] [address] PCP - General Physician Technology Coordinator 12/06/21 documented as of this encounter
--- OUTSIDE RECORDS SUMMARY | 2025-02-20 17:52 | XMS_ITS | Encounter Summary ---
Author Organization [facility] Address [address] [place] [address] Phone Care Team Providers Care Fishing Accessories Maker Name Role Phone Destini Gutierrez PA-C Primary Care Provider +1- [phone] Encounter Details Date Type Department Care Team (Late st Contact Info) Description 12/06/2021 Documentation Only [facility] [place], [address] [place] [address] Destini Gutierrez PA-C [address] [place] [address] Social History Tobacco Use Types Packs/Day Years [...] on filedocumented in this encounter Care Teams Fishing Accessories Maker Relationship Specialty Start Date End Date Destini Gutierrez PA-C [address] [place] [address] PCP - General Physician Organic Search Lead 12/06/21 documented as of this encounter
--- OUTSIDE RECORDS SUMMARY | 2025-02-20 17:52 | XMS_ITS | Clinical Summary ---
Author Organization [facility] Address [address] [place] [address] Care Team Providers Care Plate Hanger Name Role Phone Unavailable Primary Care Provider Unavailabl e Social History Tobacco Use Types Packs/Day Years Used Date Smoking Tobacco: Never Assessed Comments Unknown Sex and Gender Information Value Date Recorded Sex Assigned at Not on file Legal Sex Female 6:33 AM EST Gender Identity Not on file Sexual Orientation Not on file Plan of Treatment Health Maintenance Due Date Last Done Comments Breast Cancer Screening 1950 DTaP,Tdap,and Td Vaccines (1 - Tdap) 1969 Pneumococcal Vaccine: 50+ Ye ars (1 of 1 - PCV) 2000 Zoster Vaccines (1 of 2) 2000 Colorectal Cancer Screening: Colonoscopy 10/22/2022 Depression Screening 10/22/2022 Falls Risk Assessment 10/22/2022 Hepatitis C Screening 10/22/2022 Social Influencers of Health Screening 10/22/2022 COVID-19 Vaccine ( - 2023-2 5 season) 2024 Influenza Vaccine (#1) 2024 RSV Immunization Adult Patie nts (1 - 1-dose 75+ series) 2025 Osteoporosis Screening (Bone Density Screening) 04/08/2031 04/08/2021 HIB Vaccines Aged Out No longer eligi ble based on patient's age to complete this topic HPV Vaccines Aged Out No longer eligi ble based on patient's age to complete this topic Hepatitis A Vaccines Aged Out No long er eligible based on patient's age to complete this topic Hepatitis B Vaccines Aged Out No long er eligible based on patient's age to complete this topic IPV Vaccines Aged Out No longer eligi ble based on patient's age to complete this topic MMR Vaccines Aged Out No longer eligi ble based on patient's age to complete this topic Meningococcal ACWY Vaccine Aged Out N o longer eligible based on patient's age to complete this topic Meningococcal B Vacine Aged Out No lo nger eligible based on patient's age to complete this topic RSV Immunization Patients Un leo 20 months Aged Out No longer eligible b ased on patient's age to complete this topic Varicella Vaccines Aged Out No longer eligible based on patient's age to complete this topic Procedures Procedure Name Priority Date/Time Associated Diagnosis Comments [facility] DEXA AXIAL SKELETON Routine 04/08/2021 1:18 PM EDT Age-related osteoporosis without current pathological fracture from Last 3 Months or Most Recently Relevant to Health Maintenance Results * [facility] DEXA AXIAL SKELETON (04/08/2021 1:18 PM EDT) Anatomical Region Laterality Modality Mammography 04/08/2021 10:4 9 AM EDT Narrative 04/08/2021 1:18 PM EDT [facility] Diagnostic Imaging Department [address] [place] [address] Patient: ??SANDRA,GUNNER ?/Age/Sex: 1950 - 70 - F Unit#: ??[id number] ? Location/Status: ??SPDIMAM/REG CLI ? Mnemonic/Ordering Site: ??MAMDEXAAX/SPMAM Ordering Physician: ??ANGELA BELTRÁN [facility] Dexa Axial Skeleton - 04/08/211124 History: Low estrogen state due to menopause. Height loss. Findings: Bone densitometry is performed utilizing dual energy x-ray absorptiometry (DXA) in the KeelvarigMitrAssist unit. The lumbar spine and proximal femora are evaluated in the AP projection. The FRAX questionaire was completed. The results indicate osteoporosis, with a lumbar spine T-score of -2.8. ??The detailed DEXA report will be mailed to the referring physician's office. DualFemur FRAX: 10-year Probability of Fracture: Major Osteoporotic 7.3 percent Hip 1.7 percent. IMPRESSION: Osteoporosis. [id number] Dictating Physician: ??MARTA BROWN MD Electronically Signed by: ??MARTA BROWN MD Dic Date/Time: ??04/08/21 1317 Sign date/Time: ??04/08/21 1318 Procedure Note Marta Brown MD - 11/07/2022 [facility] Diagnostic Imaging Department [address] [place] [address] Patient: GUNNER FLORES /Age/Sex: 1950 - 70 - F Unit#: [id number] Location/Status: [facility] Mnemonic/Ordering Site: [facility] Ordering Physician: ANGELA BELTRÁN [facility] Dexa Axial Skeleton - 04/08/211124 History: Low estrogen state due to menopause. Height loss. Findings: Bone densitometry is performed utilizing dual energy x-ray absorptiometry(DXA) in the KeelvarigMitrAssist unit. The lumbar spine and proximal femora areevaluated in the AP projection. The FRAX questionaire was completed. The results indicate osteoporosis, with a lumbar spine T-score of -2.8.The detailed DEXA report will be mailed to the referring physician's office. DualFemur FRAX: 10-year Probability of Fracture: Major Osteoporotic 7.3percent Hip 1.7 percent. IMPRESSION: Osteoporosis. [id number] Dictating Physician: MARTA BROWN MD Electronically Signed by: MARTA BROWN MD Dic Date/Time: 04/08/21 1317 Sign date/Time: 04/08/21 1318 Angela ASHLEY IMJulianne BI PROCEDURES Final Result from Last 3 Months or Most Recently Relevant to Health Maintenance
--- OUTSIDE RECORDS SUMMARY | 2025-02-20 17:52 | XMS_ITS ---
Author Organization [facility] Address [address] [place] [address] Care Team Providers Care Typewriter Repairer Name Role Phone Destini Gutierrez Primary Care Provider Buzz Luna [phone] REASON FOR VISIT screening Problems Problem Type SNOMED Code ICD Code Onset Dates Problem Status W/U Status Risk Notes Problem Diverticular disease of colon (936109724) Diverticulosis of large intestine without perforation or abscess without bleeding (K57.30) Active confirmed Encounters Encounter Location Date Provider Diagnosis [facility] [address] [place], [place] [id number] 10/10/2023 Buzz De La O Encounter for scre ening colonoscopy Z12.11 ; Diverticulosis of large intestine without perforation or abscess without bleeding K57.30 and Other hemorrhoids K64.8 Assessments Encounter Date Diagnosis (ICD Code) Assessment Notes Treatment Notes Treatment Clinical Notes Section Notes 10/10/2023 Encounter for screening colonoscopy (ICD-10 - Z12.11) 10/10/2023 Diverticulosis of large intestine without perforation or abscess without bleeding (ICD-10 - K57.30) 10/10/2023 Other hemorrhoids (ICD-10 - K64.8) Plan Of Treatment No Information Progress Notes * DEANNE FLORESJENNIFEROB: 0 (74 yo F)Acc No.[id number]:10/10/2023 COLON WITH MAC Patient:?GUNNER FLORES Provider:?Buzz De La O MD :1950???Age:72 Y???Sex:Female D ate:10/10/2023 Address:[address] [place] [address], [address] Pcp:Destini Gutierrez Subjective: * Chief Complaints: * ???1. Screening. * Medical History:? Objective: * Vitals:? Assessment: * Assessment: 1.?Encounter for screening c olonoscopy - Z12.11 (Primary)???2.?Diverticulosis of large intestine without perforation or abscess without bleeding - K57.30???3.?Other hemorrhoids - K64.8??? Plan: * Treatment: * Procedure Codes:?64963 DIAGN OSTIC COLONOSCOPY * * The named appointment provid er may or may not be the originator of this progress note, and it is not deemed complete until electronically signed by the appointment provider. Sign off status: Pending * Provider:?Buzz De La O MD Date:? 023 Generated for Sonya cartagena/Oli/Roxanasmitting on:?02/20/2025 05:52 PM EDT
[2025-02-20 18:13] VITALS: BP 160/98; PULSE 80; RESP 18; TEMP 36.9; O2SAT 95
== END 2025-02-20 18:13 | disposition home or self-care (01) ==
PROVIDERS: Emergency Provider Emergency Medicine Emergency Medical Services; PCP Physician Assistant
DX: H01.00A Unspecified blepharitis right eye, upper and lower eyelids (principal); H01.00B Unspecified blepharitis left eye, upper and lower eyelids; Z79.899 Other long term (current) drug therapy
CPT/HCPCS: 99282; 99283

== ENCOUNTER 2025-04-24 10:46 | Emergency (ER) | payer OTHER, SELFPAY ==
--- NOTE | ~2025-04-24 | XR_ITS ---
EXAMINATION: XR KNEE, LEFT CLINICAL INFORMATION: atraumatic L knee pain COMPARISON: None available. TECHNIQUE: Four views of the left knee. FINDINGS: No fracture or dislocation. No suspicious bone lesion. Normal alignment. Diffuse chondrocalcinosis in the medial, lateral, and patellofemoral compartments suggesting CPPD. Moderate medial and patellofemoral compartment arthritis, with milder changes in the lateral compartment. Mild spurring of the tibial spines. There is a small to moderate size joint effusion in the suprapatellar bursa. There is no discrete soft tissue abnormality. XR/XR knee LT 4V IMPRESSION: 1. No acute bony abnormalities. 2. Diffuse chondrocalcinosis. 3. Moderate medial and patellofemoral compartment arthritis, likely related to CPPD. 4. Small to moderate size joint effusion. Electronically signed by: Christopher Blancas MD 04/24/2025 12:13 PM EDT
--- NOTE | 2025-04-24 11:09 | ED.LOWEXIN ---
HPI - Extremity Injury (Lower) General Chief Complaint: Extremity Injury, Lower Stated Complaint: L Knee Pain Time Seen by Provider: 04/24/25 17:44 History of Present Illness ED Provider: Jono Miranda MD HPI Narrative: 74-year-old female with history of severe chronic osteoarthritis and pseudogout chronic bilateral knee pain left greater than right slightly worsened over the past several days. Previously been on meloxicam but not for many years or months. She subjectively felt her stool was ?burgundy ?colored for about a month she has perseverating on being concern for cancer since her was diagnosed 1 month ago. Patient did not have any abdominal pain denies bright red blood per rectum, anal pain, nausea or vomiting or hematemesis. Denies prior GI bleed. Tells me she had a colonoscopy last year that was normal with no lesions or polyps Related Data Home Medications ?Medication ?Instructions ?Recorded ?Confirmed calcium 600 mg (as 2 tab PO DAILY 10/08/23 10/08/23 carbonate)-vitamin D3 10 mcg (400 unit) tablet hydrochlorothiazide 50 mg tablet 50 mg PO DAILY 10/08/23 10/08/23 metoprolol succinate 50 mg 50 mg PO DAILY 10/08/23 10/08/23 tablet,extended release 24 hr Previous Rx's ?Medication ?Instructions ?Recorded albuterol sulfate 90 mcg/actuation 1 inh inhalation QID PRN shortness 09/25/22 aerosol inhaler of breath or wheezing #8.5 grams omeprazole 20 mg capsule,delayed 20 mg PO DAILY #14 caps 11/21/22 release compression panty, 1x-2x #1 ea 03/05/24 azithromycin 250 mg tablet See Rx Instructions PO .COMPLEX #6 02/03/25 tabs erythromycin 5 mg/gram (0.5 %) eye 0.5 inch ophthalmic (eye) QID 7 02/03/25 ointment days #3.5 grams prednisone 20 mg tablet 20 mg PO DAILY 5 days #5 tabs 02/03/25 tea tree oil 100 % topical See Rx Instructions .Route 02/20/25 .COMPLEX #60 mL diclofenac sodium 1 % topical gel 4 g topical QID PRN pain (scale 04/24/25 (Voltaren Arthritis Pain) score 4-6) #100 grams meloxicam 7.5 mg tablet 7.5 mg PO DAILY #10 tabs 04/24/25 prednisone 20 mg tablet 60 mg (3 x 20 mg) PO DAILY 4 days 04/24/25 #12 tabs Allergies Allergy/AdvReac Type Severity Reaction Status Date / Time amoxicillin Allergy Intermediate Hives Verified 04/24/25 11:11 Penicillins [PCN] Allergy Intermediate Hives Verified 04/24/25 11:11 iodine AdvReac Blister Verified 04/24/25 11:11 [facility] Past Medical History Medical History Asthma Back pain Fluid retention in legs Hypertension Osteoporosis Surgical History H/O colonoscopy Social History Social History Unable to assess alcohol history related to: Unknown Alcohol intake: never Patient Tobacco Use Status: Never used Tobacco Smoked in Last 30 Days: No Use of substances other than those prescribed or required for medical reasons: No Advance Directives: Yes Advance Directives on File: Yes Advance Directives Date on File: 09/27/21 Do you have a plan to hurt others: No Plan Physical Exam Vital Signs: Vital Signs: Last Vital Signs Temp 97.3 F 04/24/25 18:39 Pulse 65 04/24/25 18:39 Resp 16 04/24/25 18:39 BP 159/64 H 04/24/25 18:39 Pulse Ox 100 04/24/25 18:39 O2 Del Method Room Air 04/24/25 18:39 BMI result Body Mass Index 35.1 Const: Other: EXAM: Gen: Alert, awake, well appearing, well hydrated. Head: Atraumatic Eyes: Anicteric, Normal conjunctiva. ENT: Moist mucosa, no pallor. ? Neck: Supple. Respiratory: Breathing comfortably, No distress.Clear to auscultation bilaterally, symmetric chest expansion, No wheeze, rales, ronchi. Cardiovascular: Regular rate and rhythm. No murmurs or rub. Well perfused periphery, warm extremities. No edema. ? Abdominal: No FOCAL TENDERNESS. Soft, no objective distension. No palpable masses or obvious organomegaly. ?No guarding, no rebound tenderness or other peritoneal findings. : No flank tenderness. Neuro: Alert. Gross movement of all extremities intact. ? Psych: Calm. Cooperative. MSK: No grossly visible deformity. Left knee: Moderate diffuse tenderness no warmth no palpable effusion. She is obese and this limits exam. Range of motion somewhat limited. Slightly tender at the joint anteriorly. No pitting edema well-perfused leg. Soft compartments upper and lower leg. Vital signs: See flowsheet Course Course Course Narrative: 04/24/25 1109 LATOSHA Morris This is a Rapid Medical Examination (RME) performed by Eric López PA-C in triage. Full HPI, ROS, assessment and treatment plan per primary provider in the Main ED. Hx: 74 yo F hx asthma, HTN, osteoporosis here for eval of L knee pain x3 days, worsening. hx of similar, typically resolves with meloxicam however ran out of this medication. no injury/trauma. PE/vitals: using wheel chair to ambulate, able to bear weight on LLE w/ slow movements. also states I want to be checked for cancer . reports dark stools x3 weeks, reportedly spoke w/ pcp about this and was told don't worry about it . Plan: xrs, labs, OBS Medications Administered Discontinued Medications Generic Name Dose Route Start Last Admin Trade Name Freq PRN Reason Stop Dose Admin Ibuprofen 600 mg 04/24/25 14:29 04/24/25 14:32 Ibuprofen 600 Mg Tablet PO 04/24/25 14:30 600 mg ONCE ONE Administration Medical Decision Making Medical Decision Making [facility] Narrative: 74-year-old female main complaint is knee pain she has chronic arthritis. X-ray suggests severe arthritis. No redness or warmth or significant decrease in the range of motion to suggest septic or other inflammatory arthritis. No fracture no trauma. DVT excluded by ultrasound. Patient personally subjectively concern for cancer. I explained to her she has no particular alarming acute symptoms to suggest or indicate an emergency department workup or skin however she should discuss this with her primary physician. Reassuring abdominal exam no significant anemia or other concerning lab findings to address emergently Lab Data [facility] Lab Attestation statement: I reviewed the patient's lab results. 04/24/25 12:45 04/24/25 12:45 Labs: Lab Results 04/24/25 Range/Units 12:45 WBC 9.5 (4.8-10.8) X10*3/uL RBC 4.71 (4.20-5.50) X10*6/uL Hgb 12.6 (12.0-16.0) g/dl Hct 40.3 (37.0-47.0) % MCV 85.6 (80.0-98.0) fL MCH 26.8 L (27.0-33.0) pg MCHC 31.3 (31.0-35.0) g/dl RDW 13.4 (11.0-16.0) % Plt Count 250 (160-400) X10*3/uL MPV 9.9 (9.4-12.3) fL Immature Gran % (Auto) 0.5 H (0.0-0.4) % Neut % (Auto) 72.1 (45-73) % Lymph % (Auto) 17.3 L (20-40) % [place] % (Auto) 7.7 (2-11) % Eos % (Auto) 1.5 (0-4) % Baso % (Auto) 0.9 (0-2) % Lymph # (Auto) 1.6 (1.2-4.9) X10*3/uL [place] # (Auto) 0.7 (0.1-1.2) X10*3/uL Eos # (Auto) 0.1 (0.0-0.4) X10*3/uL Baso # (Auto) 0.1 (0.0-0.2) X10*3/uL Abs Immat Gran (auto) 0.05 H (0.00-0.03) X10*3/uL Absolute Neuts (auto) 6.8 (2.0-8.3) x10*3/uL Absolute Nucleated RBC 0.000 (0.0-0.012) X10*3/uL Nucleated RBC % (auto) 0.0 (0.0-0.2) /100WBC Sodium 141 (135-145) mmol/L Potassium 3.6 (3.3-5.1) mmol/L Chloride 105 (96-108) mmol/L Carbon Dioxide 30 H (22-29) mmol/L Anion Gap 10 L (12-20) BUN 19 H (9-16) mg/dL Creatinine 0.97 (0.5-1.4) mg/dL Estim Creat Clear Calc 46.2 Estimated GFR 56 Random Glucose 96 (60-115) mg/dL Calcium 9.9 (8.4-10.2) mg/dL Magnesium 2.0 (1.6-2.6) mg/dL Total Bilirubin 0.5 (0.0-1.0) mg/dL AST 27 (5-31) U/L ALT 21 (0-31) U/L Alkaline Phosphatase 112 (39-117) U/L Total Protein 7.8 (6.5-8.0) g/dL Albumin 4.4 (3.5-5.0) g/dL Lipase 11 (8-78) U/L Radiology Impression Discussion of test interpretation with radiology: I have reviewed the radiologist's reading. Procedures Procedure Narrative Procedure Narrative: EMERGENCY ULTRASOUND INTERPRETATION-Limited Point of Care Venous (DVT) [This study was ordered, performed, and interpreted by myself. The study reveals: Impression: NO EVIDENCE OF DVT. I RECOMMENDED TO THE PATIENT REPEAT ULTRASOUND IN ONE WEEK IF SYMPTOMS PERSIST.] [Indication: Laterality: LEFT Common Femoral: -Full Compressibility: YES -Clot Seen: NO Superficial Femoral: -Full Compressibility: YES -Clot Seen: NO Popliteal: -Full Compressibility: YES -Clot Seen: NO Other: Performed by: Jono Miranda MD Images were stored CPT: 82272] Discharge Plan Discharge Clinical Impression: Arthritis of knee Patient Disposition: Home, Self-Care Instructions: Osteoarthritis (ED) Additional Instructions: DISCHARGE DIAGNOSES: Arthritis of the left knee, severe No signs of anemia, reassuring blood work HISTORY OF PRESENTATION: Severe left knee pain EMERGENCY DEPARTMENT COURSE,TESTS, TREATMENTS: While in the ED today you were evaluated blood work x-ray of the knee. The knee shows severe arthritis and inflammatory fluid. Blood work did not show anemia or blood loss or other findings DISCHARGE MEDICATIONS: ?[We have made no changes to your regular medication regimen] we have added a topical anti-inflammatory gel and meloxicam FOLLOW-UP: ?Call your primary or general physician soon as possible to discuss your symptoms, your ED visit and to discuss follow up plans Call your PCP for follow up and orthopedics for follow up with your knee pain INSTRUCTIONS ?& RETURN PRECAUTIONS: If any symptoms change first call your primary physician, if it is after-hours your primary doctors office should have a provider continuous miner you can speak with. If the symptoms are severe or very concerning to you then call 911 or return to the ED. Jono Miranda MD Emergency Physician [facility] Prescriptions: New prednisone 20 mg tablet 60 mg PO DAILY 4 Days Qty: 12 0RF meloxicam 7.5 mg tablet 7.5 mg PO DAILY Qty: 10 0RF diclofenac sodium [Voltaren Arthritis Pain] 1 % gel 4 g topical QID PRN (Reason: pain (scale score 4-6)) Qty: 100 0RF Rx Instructions: apply to single knee, ankle, foot; for foot includes sole/toes/top of foot No Action albuterol sulfate 90 mcg/actuation HFA aerosol inhaler 1 inh inhalation QID PRN (Reason: shortness of breath or wheezing) Qty: 8.5 0RF omeprazole 20 mg capsule,delayed release(DR/EC) 20 mg PO DAILY Qty: 14 0RF (DME) compression panty, 1x-2x Misc See Rx Instructions .Route Qty: 1 0RF Rx Instructions: As directed erythromycin 5 mg/gram (0.5 %) ointment 0.5 inch ophthalmic (eye) QID 7 Days Qty: 3.5 0RF azithromycin 250 mg tablet See Rx Instructions PO .COMPLEX Qty: 6 0RF Rx Instructions: For 250 mg dose pack: take 500 mg today (day 1), then 250 mg for 4 days (days 2-5) prednisone 20 mg tablet 20 mg PO DAILY 5 Days Qty: 5 0RF metoprolol succinate 50 mg tablet extended release 24 hr 50 mg PO DAILY hydrochlorothiazide 50 mg tablet 50 mg PO DAILY calcium carbonate-vitamin D3 600 mg-10 mcg (400 unit) tablet 2 tab PO DAILY tea tree oil 100 % oil See Rx Instructions .ROUTE .COMPLEX Qty: 60 0RF Rx Instructions: Place 1 (ONE) drop on a dampened wash cloth and wipe the eye lids ONCE A WEEK for 6 (SIX) weeks. Interventions: ED Discharge Assessment Last Done: 04/24/25 18:39 Discharge Date/Time: 04/24/25 18:39 Print Language: Guyanese
[2025-04-24 11:10] VITALS: BP 138/71; PULSE 61; RESP 18; TEMP 36.3; O2SAT 98; BMI 35.1
[2025-04-24 12:49] LABS: MANUAL DIFF FLAG NO
[2025-04-24 12:50] LABS: Basophils Absolute Auto 0.1 X10*3/uL (0.0-0.2); Basophils Percent Auto 0.9 % (0-2); Eosinophils Absolute Auto 0.1 X10*3/uL (0.0-0.4); Eosinophils Percent Auto 1.5 % (0-4); Hematocrit 40.3 % (37.0-47.0); Hemoglobin 12.6 g/dl (12.0-16.0); Imm Gran Abs Auto 0.05 X10*3/uL (0.00-0.03); Imm Gran Pct Auto 0.5 % (0.0-0.4); Lymphocytes Absolute Auto 1.6 X10*3/uL (1.2-4.9); Lymphocytes Percent Auto 17.3 % (20-40); Mean Corpuscular HGB Conc 31.3 g/dl (31.0-35.0); Mean Corpuscular Hemoglobin 26.8 pg (27.0-33.0); Mean Corpuscular Volume 85.6 fL (80.0-98.0); Mean Platelet Volume 9.9 fL (9.4-12.3); Monocytes Absolute Auto 0.7 X10*3/uL (0.1-1.2); Monocytes Percent Auto 7.7 % (2-11); Neutrophils Absolute Auto 6.8 x10*3/uL (2.0-8.3); Neutrophils Percent Auto 72.1 % (45-73); Platelet Count 250 X10*3/uL (160-400); Red Blood Count 4.71 X10*6/uL (4.20-5.50); Red Cell Distribution Width 13.4 % (11.0-16.0); White Blood Count 9.5 X10*3/uL (4.8-10.8)
[2025-04-24 13:09] LABS: Alanine Aminotransferase 21 U/L (0-31); Albumin Level 4.4 g/dL (3.5-5.0); Alkaline Phosphatase 112 U/L (39-117); Anion Gap 10 (12-20); Aspartate Amino Transferase 27 U/L (5-31); Bilirubin Total 0.5 mg/dL (0.0-1.0); Blood Urea Nitrogen 19 mg/dL (9-16); Calcium 9.9 mg/dL (8.4-10.2); Carbon Dioxide 30 mmol/L (22-29); Chloride 105 mmol/L (96-108); Creatinine Clr Calc Pharmacy 46.2; Estimated Glomerular Filt Rate 56; Glucose Random 96 mg/dL (60-115); Lipase 11 U/L (8-78); Potassium 3.6 mmol/L (3.3-5.1); Sodium 141 mmol/L (135-145); Total Protein 7.8 g/dL (6.5-8.0)
[2025-04-24] MEDS: Ibuprofen 600 MG TABLET PO (14:32)
--- NOTE | 2025-04-24 14:34 | PC.NURSE ---
patient verbalizing increase in pain in back of LLE. pt medicated in triage. effectiveness pending. ice pack applied to affected area.
--- NOTE | 2025-04-24 17:49 | ED.LOWEXIN ---
HPI - Extremity Injury (Lower) General Chief Complaint: Extremity Injury, Lower Stated Complaint: L Knee Pain Time Seen by Provider: 04/24/25 17:44 History of Present Illness ED Provider: Jono Miranda MD HPI Narrative: 74-year-old female with atraumatic knee pain acute on chronic. Ran out of meloxicam. Related Data Home Medications ?Medication ?Instructions ?Recorded ?Confirmed calcium 600 mg (as 2 tab PO DAILY 10/08/23 10/08/23 carbonate)-vitamin D3 10 mcg (400 unit) tablet hydrochlorothiazide 50 mg tablet 50 mg PO DAILY 10/08/23 10/08/23 metoprolol succinate 50 mg 50 mg PO DAILY 10/08/23 10/08/23 tablet,extended release 24 hr Previous Rx's ?Medication ?Instructions ?Recorded albuterol sulfate 90 mcg/actuation 1 inh inhalation QID PRN shortness 09/25/22 aerosol inhaler of breath or wheezing #8.5 grams omeprazole 20 mg capsule,delayed 20 mg PO DAILY #14 caps 11/21/22 release compression panty, 1x-2x #1 ea 03/05/24 azithromycin 250 mg tablet See Rx Instructions PO .COMPLEX #6 02/03/25 tabs erythromycin 5 mg/gram (0.5 %) eye 0.5 inch ophthalmic (eye) QID 7 02/03/25 ointment days #3.5 grams prednisone 20 mg tablet 20 mg PO DAILY 5 days #5 tabs 02/03/25 tea tree oil 100 % topical See Rx Instructions .Route 02/20/25 .COMPLEX #60 mL diclofenac sodium 1 % topical gel 4 g topical QID PRN pain (scale 04/24/25 (Voltaren Arthritis Pain) score 4-6) #100 grams meloxicam 7.5 mg tablet 7.5 mg PO DAILY #10 tabs 04/24/25 prednisone 20 mg tablet 60 mg (3 x 20 mg) PO DAILY 4 days 04/24/25 #12 tabs Allergies Allergy/AdvReac Type Severity Reaction Status Date / Time amoxicillin Allergy Intermediate Hives Verified 04/24/25 11:11 Penicillins [PCN] Allergy Intermediate Hives Verified 04/24/25 11:11 iodine AdvReac Blister Verified 04/24/25 11:11 [facility] Past Medical History Medical History Asthma Back pain Fluid retention in legs Hypertension Osteoporosis Surgical History H/O colonoscopy Social History Social History Unable to assess alcohol history related to: Unknown Alcohol intake: never Patient Tobacco Use Status: Never used Tobacco Smoked in Last 30 Days: No Use of substances other than those prescribed or required for medical reasons: No Advance Directives: Yes Advance Directives on File: Yes Advance Directives Date on File: 09/27/21 Do you have a plan to hurt others: No Plan Physical Exam Vital Signs: Vital Signs: Last Vital Signs Temp 97.3 F 04/24/25 18:39 Pulse 65 04/24/25 18:39 Resp 16 04/24/25 18:39 BP 159/64 H 04/24/25 18:39 Pulse Ox 100 04/24/25 18:39 O2 Del Method Room Air 04/24/25 18:39 BMI result Body Mass Index 35.1 Medications Administered Discontinued Medications Generic Name Dose Route Start Last Admin Trade Name Freq PRN Reason Stop Dose Admin Ibuprofen 600 mg 04/24/25 14:29 04/24/25 14:32 Ibuprofen 600 Mg Tablet PO 04/24/25 14:30 600 mg ONCE ONE Administration Medical Decision Making Lab Data 04/24/25 12:45 04/24/25 12:45 Labs: Lab Results 04/24/25 Range/Units 12:45 WBC 9.5 (4.8-10.8) X10*3/uL RBC 4.71 (4.20-5.50) X10*6/uL Hgb 12.6 (12.0-16.0) g/dl Hct 40.3 (37.0-47.0) % MCV 85.6 (80.0-98.0) fL MCH 26.8 L (27.0-33.0) pg MCHC 31.3 (31.0-35.0) g/dl RDW 13.4 (11.0-16.0) % Plt Count 250 (160-400) X10*3/uL MPV 9.9 (9.4-12.3) fL Immature Gran % (Auto) 0.5 H (0.0-0.4) % Neut % (Auto) 72.1 (45-73) % Lymph % (Auto) 17.3 L (20-40) % Dillon % (Auto) 7.7 (2-11) % Eos % (Auto) 1.5 (0-4) % Baso % (Auto) 0.9 (0-2) % Lymph # (Auto) 1.6 (1.2-4.9) X10*3/uL Dillon # (Auto) 0.7 (0.1-1.2) X10*3/uL Eos # (Auto) 0.1 (0.0-0.4) X10*3/uL Baso # (Auto) 0.1 (0.0-0.2) X10*3/uL Abs Immat Gran (auto) 0.05 H (0.00-0.03) X10*3/uL Absolute Neuts (auto) 6.8 (2.0-8.3) x10*3/uL Absolute Nucleated RBC 0.000 (0.0-0.012) X10*3/uL Nucleated RBC % (auto) 0.0 (0.0-0.2) /100WBC Sodium 141 (135-145) mmol/L Potassium 3.6 (3.3-5.1) mmol/L Chloride 105 (96-108) mmol/L Carbon Dioxide 30 H (22-29) mmol/L Anion Gap 10 L (12-20) BUN 19 H (9-16) mg/dL Creatinine 0.97 (0.5-1.4) mg/dL Estim Creat Clear Calc 46.2 Estimated GFR 56 Random Glucose 96 (60-115) mg/dL Calcium 9.9 (8.4-10.2) mg/dL Magnesium 2.0 (1.6-2.6) mg/dL Total Bilirubin 0.5 (0.0-1.0) mg/dL AST 27 (5-31) U/L ALT 21 (0-31) U/L Alkaline Phosphatase 112 (39-117) U/L Total Protein 7.8 (6.5-8.0) g/dL Albumin 4.4 (3.5-5.0) g/dL Lipase 11 (8-78) U/L Discharge Plan Discharge Clinical Impression: Arthritis of knee Patient Disposition: Home, Self-Care Instructions: Osteoarthritis (ED) Additional Instructions: DISCHARGE DIAGNOSES: Arthritis of the left knee, severe No signs of anemia, reassuring blood work HISTORY OF PRESENTATION: Severe left knee pain EMERGENCY DEPARTMENT COURSE,TESTS, TREATMENTS: While in the ED today you were evaluated blood work x-ray of the knee. The knee shows severe arthritis and inflammatory fluid. Blood work did not show anemia or blood loss or other findings DISCHARGE MEDICATIONS: ?[We have made no changes to your regular medication regimen] we have added a topical anti-inflammatory gel and meloxicam FOLLOW-UP: ?Call your primary or general physician soon as possible to discuss your symptoms, your ED visit and to discuss follow up plans Call your PCP for follow up and orthopedics for follow up with your knee pain INSTRUCTIONS ?& RETURN PRECAUTIONS: If any symptoms change first call your primary physician, if it is after-hours your primary doctors office should have a provider coordinator cardiopulmonary services you can speak with. If the symptoms are severe or very concerning to you then call 911 or return to the ED. Jono Miranda MD Emergency Physician [facility] Prescriptions: New prednisone 20 mg tablet 60 mg PO DAILY 4 Days Qty: 12 0RF meloxicam 7.5 mg tablet 7.5 mg PO DAILY Qty: 10 0RF diclofenac sodium [Voltaren Arthritis Pain] 1 % gel 4 g topical QID PRN (Reason: pain (scale score 4-6)) Qty: 100 0RF Rx Instructions: apply to single knee, ankle, foot; for foot includes sole/toes/top of foot No Action albuterol sulfate 90 mcg/actuation HFA aerosol inhaler 1 inh inhalation QID PRN (Reason: shortness of breath or wheezing) Qty: 8.5 0RF omeprazole 20 mg capsule,delayed release(DR/EC) 20 mg PO DAILY Qty: 14 0RF (DME) compression panty, 1x-2x Misc See Rx Instructions .Route Qty: 1 0RF Rx Instructions: As directed erythromycin 5 mg/gram (0.5 %) ointment 0.5 inch ophthalmic (eye) QID 7 Days Qty: 3.5 0RF azithromycin 250 mg tablet See Rx Instructions PO .COMPLEX Qty: 6 0RF Rx Instructions: For 250 mg dose pack: take 500 mg today (day 1), then 250 mg for 4 days (days 2-5) prednisone 20 mg tablet 20 mg PO DAILY 5 Days Qty: 5 0RF metoprolol succinate 50 mg tablet extended release 24 hr 50 mg PO DAILY hydrochlorothiazide 50 mg tablet 50 mg PO DAILY calcium carbonate-vitamin D3 600 mg-10 mcg (400 unit) tablet 2 tab PO DAILY tea tree oil 100 % oil See Rx Instructions .ROUTE .COMPLEX Qty: 60 0RF Rx Instructions: Place 1 (ONE) drop on a dampened wash cloth and wipe the eye lids ONCE A WEEK for 6 (SIX) weeks. Interventions: ED Discharge Assessment Last Done: 04/24/25 18:39 Discharge Date/Time: 04/24/25 18:39 Print Language: Slovak
[2025-04-24 18:14] VITALS: BP 159/64; PULSE 65; RESP 16; TEMP 36.3; O2SAT 100
[2025-04-24 18:39] VITALS: BP 159/64; PULSE 65; RESP 16; TEMP 36.3; O2SAT 100
== END 2025-04-24 18:39 | disposition home or self-care (01) ==
PROVIDERS: Physician Assistant Medical; Emergency Provider Emergency Medicine; PCP Physician Assistant
DX: M17.12 Unilateral primary osteoarthritis, left knee (principal); Z79.899 Other long term (current) drug therapy
CPT/HCPCS: 36415; 73564; 80053; 83690; 83735; 85025; 99283; 99284

== ENCOUNTER → 2025-04-24 11:11 | Outpatient (BNV) | payer OTHER, SELFPAY | PROVIDERS: PCP Physician Assistant; Visit Provider Radiology Diagnostic Radiology | DX: M25.461 Effusion, right knee (principal); M11.262 Other chondrocalcinosis, left knee | CPT/HCPCS: 73564 ==

== ENCOUNTER 2025-06-15 17:28 | Emergency (ER) | payer OTHER, SELFPAY ==
--- NOTE | 2025-06-15 18:07 | ED.GENADULT ---
HPI - General Adult General Chief complaint: Skin/Abscess/Foreign Body Stated complaint: insect bites Time Seen by Provider: 06/15/25 18:13 Source: patient, RN notes reviewed and old records reviewed Mode of arrival: ambulatory Limitations: no limitations History of Present Illness ED Provider: Alicia HPI narrative: Patient is a 74-year-old female with history of asthma, hypertension presenting to the emergency department with complaint of multiple bug bites to lower legs and forearms. States that she was at an outdoor movie the other night, did apply bug spray, but ended up with multiple pruritic bug bites afterwards. She notes 1 specific area to left forearm which has become erythematous and was draining purulent discharge. She denies any fevers, chills, body aches. MD complaint: Insect bites Onset (ago): day(s) Related Data Home Medications ?Medication ?Instructions ?Recorded ?Confirmed calcium 600 mg (as 2 tab PO DAILY 10/08/23 10/08/23 carbonate)-vitamin D3 10 mcg (400 unit) tablet hydrochlorothiazide 50 mg tablet 50 mg PO DAILY 10/08/23 10/08/23 metoprolol succinate 50 mg 50 mg PO DAILY 10/08/23 10/08/23 tablet,extended release 24 hr Previous Rx's ?Medication ?Instructions ?Recorded albuterol sulfate 90 mcg/actuation 1 inh inhalation QID PRN shortness 09/25/22 aerosol inhaler of breath or wheezing #8.5 grams omeprazole 20 mg capsule,delayed 20 mg PO DAILY #14 caps 11/21/22 release compression panty, 1x-2x #1 ea 03/05/24 azithromycin 250 mg tablet See Rx Instructions PO .COMPLEX #6 02/03/25 tabs erythromycin 5 mg/gram (0.5 %) eye 0.5 inch ophthalmic (eye) QID 7 02/03/25 ointment days #3.5 grams prednisone 20 mg tablet 20 mg PO DAILY 5 days #5 tabs 02/03/25 tea tree oil 100 % topical See Rx Instructions .Route 02/20/25 .COMPLEX #60 mL diclofenac sodium 1 % topical gel 4 g topical QID PRN pain (scale 04/24/25 (Voltaren Arthritis Pain) score 4-6) #100 grams meloxicam 7.5 mg tablet 7.5 mg PO DAILY #10 tabs 04/24/25 prednisone 20 mg tablet 60 mg (3 x 20 mg) PO DAILY 4 days 04/24/25 #12 tabs doxycycline hyclate 100 mg capsule 100 mg PO BID #14 caps 06/15/25 Allergies Allergy/AdvReac Type Severity Reaction Status Date / Time amoxicillin Allergy Intermediate Hives Verified 06/15/25 18:11 Penicillins (PCN) Allergy Intermediate Hives Verified 06/15/25 18:11 iodine AdvReac Blister Verified 06/15/25 18:11 Review of Systems Review of Systems: As per HPI Yes all other systems are reviewed and are negative Constitutional: Constitutional: Reports as per HPI [facility] Past Medical History Medical History Asthma Back pain Fluid retention in legs Hypertension Osteoporosis Surgical History H/O colonoscopy Social History Social History Unable to assess alcohol history related to: Unknown Alcohol intake: never Patient Tobacco Use Status: Never used Tobacco Advance Directives Date on File: 09/27/21 Physical Exam ED Vital Signs: Vital signs have been reviewed and appear to be correct. Blood pressure normal. Heart rate normal. Respiratory rate normal. Temperature normal. Oxygen saturation normal. Const General: cooperative, healthy appearing and no acute distress Orientation/consciousness: oriented to person, oriented to place, oriented to time and patient oriented x3 Limitations: no limitations HENMT Head: Yes normocephalic and Yes atraumatic Ears: external ears normal General nose exam: Normal external nose present Face and sinus: Yes face symmetric Mouth: oropharynx normal and moist mucous membranes Throat: Yes uvula midline Eyes Pupils: Equal, round and reactive pupils present Neck Neck: Yes normal visual inspection and Yes supple Resp Effort & Inspection: normal respiratory effort and able to speak in complete sentences Auscultation: clear to auscultation bilaterally Cardio Rate: regular rate Rhythm: regular rhythm Heart sounds: S1 normal heart sound present and S2 normal heart sound present GI Palpation (GI): Soft to palpation and nontender Auscultation: normoactive bowel sounds General: Yes no CVA tenderness Back/Spine/Pelvis Back: no CVA tenderness Skin Other: multiple erythematous macules to bilat forearms and distal lower legs General skin exam: elasticity normal and turgor normal Neuro General: oriented to person, oriented to place, oriented to time, patient oriented x3, moves all extremities, no focal motor deficits and CN's II-XI intact bilaterally Cranial nerves: Yes Equal, round and reactive pupils present Cognition (Neuro): normal cognition Extrem General: Yes full ROM, Yes no pedal edema and Yes no calf tenderness Elbow/forearm/wrist images:  1. insect bite with surrounding erythema and warmth Psych Mental Status: mental status grossly normal Affect: normal affect Thought process: Normal thought process present Medical Decision Making Medical Decision Making [facility] Narrative: Patient is a 74-year-old female with history of asthma, hypertension presenting to the emergency department with complaint of multiple bug bites to lower legs and forearms. On exam patient is awake, A+Ox3, VS WNL, afebrile, normal neurological exam without focal deficits, physical exam findings as above. Given reported symptoms and physical exam findings, initial differential includes but is not limited to insect bites, cellulitis. No areas consistent with erythema migrans. Will treat with doxycycline for cellulitis to left forearm given report of purulent drainage. Advised patient to use an besb-kfe-awwcuix antihistamine such as cetirizine or loratadine for pruritus. Also discussed with patient that she should avoid scratching the areas to prevent other secondary infections. Follow up with PCP as needed. Return precautions discussed. Patient verbalized understanding of and agreement with plan. Differential Diagnosis Differential Diagnoses: The differential diagnosis associated with the presentation includes As per [facility] Admission/Observation Consideration of admission/observation: Escalation of care including admission/observation considered Patient would have been admitted to the hospital had their clinical presentation warranted hospital admission. External Record Review External record reviewed: Inpatient record, Office record and Outpatient record Prescription Management I considered prescription management with: Antibiotic Discharge Plan Discharge Clinical Impression: Cellulitis of left forearm, Insect bite Patient Disposition: Home, Self-Care Instructions: Cellulitis (ED), Doxycycline (By mouth) Additional Instructions: You have been evaluated in the emergency department today for skin infection, also known as cellulitis. Take your prescribed antibiotics as directed for the full course of the medication. We also recommend that you use an over the counter antihistamine such as Zyrtec (cetirizine) or Claritin (loratadine) for the itching. Try not to scratch the bug bites, as this can cause secondary infections. Return to the emergency department if you experience recurrent vomiting, fevers greater than 100.4? F, increasing area of redness, warmth around the area, foul-smelling discharge from the area, increased tenderness around the area, or any other concerning symptoms. Prescriptions: New doxycycline hyclate 100 mg capsule 100 mg PO BID Qty: 14 0RF No Action albuterol sulfate 90 mcg/actuation HFA aerosol inhaler 1 inh inhalation QID PRN (Reason: shortness of breath or wheezing) Qty: 8.5 0RF omeprazole 20 mg capsule,delayed release(DR/EC) 20 mg PO DAILY Qty: 14 0RF (DME) compression panty, 1x-2x Misc See Rx Instructions .Route Qty: 1 0RF Rx Instructions: As directed erythromycin 5 mg/gram (0.5 %) ointment 0.5 inch ophthalmic (eye) QID 7 Days Qty: 3.5 0RF azithromycin 250 mg tablet See Rx Instructions PO .COMPLEX Qty: 6 0RF Rx Instructions: For 250 mg dose pack: take 500 mg today (day 1), then 250 mg for 4 days (days 2-5) prednisone 20 mg tablet 20 mg PO DAILY 5 Days Qty: 5 0RF prednisone 20 mg tablet 60 mg PO DAILY 4 Days Qty: 12 0RF meloxicam 7.5 mg tablet 7.5 mg PO DAILY Qty: 10 0RF diclofenac sodium [Voltaren Arthritis Pain] 1 % gel 4 g topical QID PRN (Reason: pain (scale score 4-6)) Qty: 100 0RF Rx Instructions: apply to single knee, ankle, foot; for foot includes sole/toes/top of foot metoprolol succinate 50 mg tablet extended release 24 hr 50 mg PO DAILY hydrochlorothiazide 50 mg tablet 50 mg PO DAILY calcium carbonate-vitamin D3 600 mg-10 mcg (400 unit) tablet 2 tab PO DAILY tea tree oil 100 % oil See Rx Instructions .ROUTE .COMPLEX Qty: 60 0RF Rx Instructions: Place 1 (ONE) drop on a dampened wash cloth and wipe the eye lids ONCE A WEEK for 6 (SIX) weeks. Print Language: Wallisian
[2025-06-15 18:08] VITALS: BP 154/70; PULSE 58; RESP 18; TEMP 37.1; O2SAT 98; BMI 35.1
[2025-06-15 18:25] VITALS: BP 154/70; PULSE 58; RESP 18; TEMP 37.1; O2SAT 98
--- OUTSIDE RECORDS SUMMARY | 2025-06-15 18:26 | XMS_ITS | Patient Health Record ---
Author Organization [facility] Address [address] [place] [id number] Care Team Providers Care Armored Vehicle Officer Name Role Phone Destini Gutierrez Primary Care Provider Buzz Luna Unavailable [phone] Allergies Allergen (clinical drug ingredient) Drug/Non Drug [...] Problem Status W/U Status Risk Notes Problem 543269171 Colon cancer screening (Z12.11) Active confirmed Problem Diverticular disease of colon (704861547) Diverticulosis of large intestine without perforation or abscess without bleeding (K57.30) Active confirmed Problem 80988747 Calculus of gallbladder without cholecystitis without obstruction (K80.20) Active confirmed Plan Of Treatment Future Test Test Name Order Date COLONOSCOPY 08/01/2023 Insurance Providers Payer Name Payer Address Payer Phone Subscriber Number Group Number Insured Name Patient Relationship to Insured Coverage Start Date Coverage End Date [facility] [address] Attn Claims [place] [id number] GUNNER FLORES Self - patient is the insured Medical (General) History Medical History History ICD Code HTN Denies SD,DM,CVA,renal disease Asthma Reports 1 negative colonosco py at approx age 62 at [facility] but describes a poor prep ; she may have had 1 before but is not sure about that Gallstone seen on CT in 2020 -reviewed with patient at the 07/2023 OV--she is asymptomatic Surgical History Surgery Date(Month/Year)
--- OUTSIDE RECORDS SUMMARY | 2025-06-15 18:26 | XMS_ITS | Clinical Summary ---
Author Organization [facility] Address [address] [place] [address] Care Team Providers Care Hand Model Name Role Phone Unavailable Primary Care Provider [...] 2) 2000 Colorectal Cancer Screening: Colonoscopy 10/22/2022 Falls Risk Assessment 10/22/2022 Hepatitis C Screening 10/22/2022 Social Influencers of Health Screening 10/22/2022 COVID-19 Vaccine (1 - 2023-2 5 season) 2024 Depression Screening 11/19/2024 Influenza Vaccine (#1) 2025 RSV Immunization Adult Patie nts (1 - [...] age to complete this topic Meningococcal B Vaccine Aged Out No l onger eligible based on patient's age to complete this topic RSV Immunization Patients Un leo 20 months Aged Out No longer eligible b ased on patient's age to complete this topic Varicella Vaccines Aged Out No longer eligible based on patient's age to complete this topic Procedures Procedure Name Priority Date/Time Associated Diagnosis Comments [facility] DEXA AXIAL SKELETON Routine 04/08/2021 1:18 PM EDT Age-related osteoporosis without current pathological fracture from Last 3 Months or Most Recently Relevant to Health Maintenance Results * [facility] DEXA AXIAL SKELETON (04/08/2021 1:18 PM EDT) Anatomical Region Laterality Modality Mammography 04/08/2021 10:4 9 AM EDT Narrative 04/08/2021 1:18 PM EDT [facility] Diagnostic Imaging Department [address] [place] [address] Patient: GUNNER FLORES /Age/Sex: 1950 - 70 - F Unit#: [id number] Location/Status: [facility] CLI Mnemonic/Ordering Site: MAMDEXAAX/SPMAM Ordering Physician: ANGELA BELTRÁN [facility] Dexa Axial Skeleton - 04/08/211124 History: Low estrogen state due to menopause. Height loss. Findings: Bone densitometry is performed utilizing dual energy x-ray absorptiometry (DXA) in the Lunar Prodigy unit. The lumbar spine and proximal femora are evaluated in the AP projection. The FRAX questionaire was completed. The results indicate osteoporosis, with a lumbar spine T-score of -2.8. The detailed DEXA report will be mailed to the referring physician's office. DualFemur FRAX: 10-year Probability of Fracture: Major Osteoporotic 7.3 percent Hip 1.7 percent. IMPRESSION: Osteoporosis. [id number] Dictating Physician: MARTA BROWN MD Electronically Signed by: MARTA BROWN MD Dic Date/Time: 04/08/211316 Sign date/Time: 04/08/21 131 Procedure Note Marta Brown MD - 11/07/2022 [facility] Diagnostic Imaging Department [address] [place] [id number] Patient: GUNNER FLORES /Age/Sex: 1950 - 70 - F Unit#: [id number] Location/Status: [facility] Ordering Physician: ANGELA BELTRÁN [facility] Dexa Axial Skeleton - 04/08/211124 History: Low estrogen state due to menopause. Height loss. Findings: Bone densitometry is performed utilizing dual energy x-ray absorptiometry(DXA) in the Amonixy unit. The lumbar spine and proximal femora areevaluated in the AP projection. The FRAX questionaire was completed. The results indicate osteoporosis, with a lumbar spine T-score of -2.8.The detailed DEXA report will be mailed to the referring physician's office. DualFemur FRAX: 10-year Probability of Fracture: Major Osteoporotic 7.3percent Hip 1.7 percent. IMPRESSION: Osteoporosis. [id number] Dictating Physician: MARTA BROWN MD Electronically Signed by: MARTA BROWN MD Dic Date/Time: 04/08/21 1317 Sign date/Time: 04/08/21 1318 Angela ASHLEY IMG BI PROCEDURES Final Result from Last 3 Months or Most Recently Relevant to Health Maintenance
--- OUTSIDE RECORDS SUMMARY | 2025-06-15 18:26 | XMS_ITS | Data Portability ---
Author Organization [facility], [facility] Address [address] [place] [phone] Care Team Providers Care Acquisition Marketing Manager Name Role Phone HIM CCA OTHER BENITESAKINSASHA Primary Care Provider Assessment Encounter Date Assessment Date Assessment LastModified by Organization Details LastModified Time 01/05/2025 01/05/2025 As noted, we were called to see this patient regarding concerns of URI. Evaluation in the field was performed by my fiber heel piece shaper colleague, as noted above, I provided real-time direction and supervision for this visit. The evaluation revealed 74y F with viral URI. No chronic lung disease. VSS, stable respirtaory status. Reassurance, precautions, supportive care. Impression: viral URI Plan: supportive care Primary care, consider f/u in 10-14d Disposition: We discussed the diagnostic uncertainty of home visits and the risk associated with this. In this case, the patient and I felt this to be an acceptable and reasonable amount of risk given the benefit of avoiding an ED visit. We discussed the need to seek care urgently/emerge ntly in the setting of any new or worsening serious symptoms, particularly fever chills shob dizziness headache [facility] Not available 01/05/2025 16:43:32 Plan of Treatment Reminders Order Date Submit Date Provider Last Modified By Organization Details Last Modified Time Details Appointments None recorded. Lab rapid SARS CoV 2 Ag, QL IA, respiratory specimen 2024 025 [facility], [address] [place] [address], [id number] 20:47:35 rapid flu (A+B) [address], [phone] 20:47:09 Referral None recorded. Procedures None recorded. Surgeries None recorded. Imaging None recorded. Medication Orders None recorded. Patient TargetsNo targets recorded. Patient InstructionsNo instructions recorded. Reason for Referral None Reported. Results Created Date Observation Date Name Description Value Unit Range Abnormal Flag Note LastModifiedBy Organization Detail LastModifiedTime Result Notes None recorded. Medical Equipment None Reported. Allergies Allergen ID Allergen Name Allergen Category Reaction Reaction Severity Criticality Documentation Date Start Date Code Code System Note Provider Name and Address Organization Details Recorded Time 92985 amoxicill in medicatio n Not available Not available Not available 01/05/2025 723 RxNorm Not Available [facility] production 14:17:24 Medications Name Sig Start Date Stop Date Status Note LastModified by Organization Details LastModified Time metoprolol succinate ER 50 mg tablet,extend ed release 24 hr TAKE 1 TABLET BY MOUTH EVERY DAY active Not Available Not Available No t Available hydrochloroth iazide 50 mg tablet TAKE 1 TABLET BY MOUTH EVERY DAY active Not Available Not Available No t Available acetaminophen 500 mg tablet TAKE 1 CAPLET BY MOUTH EVERY 4 HOURS NEEDED FOR PAIN active Not Available Not Available No t Available hydrocortison e 2.5 % topical cream with perineal applicator APPLY RECTALLY TO THE AFFECTED AREA DAILY FOR 7 DAYS active Not Available Not Available N ot Available furosemide 20 mg tablet TAKE 1 TABLET BY MOUTH DAILY active Not Available Not Available No t Available ibuprofen 600 mg tablet TAKE 1 TABLET BY MOUTH TWICE DAILY active Not Available Not Available No t Available Ventolin HFA 90 mcg/actuation aerosol inhaler INHALE 2 PUFFS INTO THE LUNGS EVERY 4 HOURS NEEDED FOR WHEEZING active Not Available Not Available No t Available calcium 600 mg (as carbonate)-vi tamin D3 10 mcg (400 unit) tablet TAKE 2 TABLETS BY MOUTH EVERY DAY active Not Available Not Available No t Available diclofenac 1 % topical gel APPLY TOPICALLY TO THE AFFECTED AREA TWICE DAILY active Not Available Not Available No t Available Vitals Date Recorded Respiratory rate Heart rate Body temperature Body height Oxygen saturation Oxygen saturation in Arterial blood by Pulse oximetry Body weight Systolic And Diastolic Provider Name and Address Organization Details Last Updated DateTime 5 16 /min 65 /min 97.9 [degF] 152.4 cm 98 % 98 % 24642.5 6 g 149/82 mm[Hg] Not Available [facility] - production 5 16:39:21 Social History None recorded. Functional Status None recorded. Mental Status None recorded. Family History Nothing Reported. Medical History No medical history recorded. Gynecological HistoryNo gynecological history recorded. Obstetrics History GPAL:G 0 P 0 0 0 0 Past Encounters Encounter ID Performer Location Encounter Start Date Encounter Closed Date Diagnosis/Indication Diagnosis SNOMED-CT Code Diagnosis ICD10 Code Diagnosis Note [id number] Alana Brown MD Main - [address] [phone] 01/05/2025 16:39:19 01/06/2025 08:47:45 Viral upper respiratory tract infection 948026314 J06.9 Health Concerns Section Related Observation LastModified by Organization Detai ls LastModified Time None Recorded Concern Status LastModified by Organization Details LastModified Time None Recorded Advance Directives Directive None Recorded Payers Insurance Date Sequence Insurance Name Policy Number Policy Holbrook Covered Member ID Holbrook Member ID Guarantor Name 01/05/2025 1 [facility] - DOS ON OR AFTER 2023 - DUAL ELIGIBLE - DETENTION OPTIONS AND ONE CARE (MEDICARE REPLACEMENT/ADV ANTAGE - HMO) Ana Cathryn [id number] Ana Cathryn OBGyn Episode No OBEpisode recorded.
--- OUTSIDE RECORDS SUMMARY | 2025-06-15 18:26 | XMS_ITS | Clinical Summary ---
Author Organization [facility], Address [address] [place] [address] [place] [address] Phone Care Team Providers Care Mortar Maker Name Role Phone Destini Gutierrez PA-C Primary Care Provider [phone] Medications Calcium Carb-Cholecalci ferol (Calcium-Vitami n D) [...] Colorectal Cancer Screening: Sigmoidoscopy 1999 Pneumococcal Vaccine: 50+ Ye ars (1 of 1 - PCV) 2000 Influenza Vaccine (#1) 2025 Hepatitis B Vaccine Aged Out No longe r eligible based on patient's age to complete this topic Insurance [facility] [place] [id number] Care Teams Mortar Maker Relationship Specialty Start Date End Date Destini Gutierrez PA-C [address] [place] [address] PCP - General Physician Clinical Pathologist 12/06/21
== END 2025-06-15 18:26 | disposition home or self-care (01) ==
LOC: HO.ED 18:24
PROVIDERS: Emergency Provider Emergency Medicine Emergency Medical Services; PCP Physician Assistant
DX: L03.114 Cellulitis of left upper limb (principal); S50.861A Insect bite (nonvenomous) of right forearm, initial encounter; W57.XXXA Bitten or stung by nonvenomous insect and other nonvenomous arthropods, initial encounter; Y93.89 Activity, other specified; Y92.838 Other recreation area as the place of occurrence of the external cause; Y99.8 Other external cause status
CPT/HCPCS: 99282; 99283